=== PATIENT | male | born 1965 | race Caucasian/White ===

== ENCOUNTER 2021-09-26 09:52 | Emergency (ER) | payer OTHER, SELFPAY ==
[2021-09-26 09:59] VITALS: BP 138/80; PULSE 87; RESP 18; TEMP 36.6; O2SAT 97
--- NOTE | 2021-09-26 10:00 | DI.CT_ITS ---
Exam(s) CT HEAD WO EXAM: CT HEAD WO CLINICAL HISTORY: headache. TECHNIQUE: Imaging Protocol: Axial computed tomography images with coronal and sagittal reformatted images were created and reviewed COMPARISON: No exams were available for comparison FINDINGS: Ventricles and Extra axial spaces: Normal in size and morphology for the patient's age. No significan t atrophy. Hemorrhage: None. Cerebral parenchyma: Normal. No visible white matter changes. Midline shift: None. Brainstem/Cerebellum: Normal. Calvarium: Normal. Visualized Paranasal sinuses/Mastoids: Clear. Soft Tissues: Unremarkable. IMPRESSION: No acute intracranial process. Results of this exam have been verbally communicated with the emergency department provider. RADIATION DOSE DELIVERED: 898.85mGy.cm Total DLP DATA REPOSITORY: All CT scans at this facility are submitted to the National Radiology Data Registry (NRDR) Dose Index Registry (DIR) with the [employer] (ACR). RADIATION OPTIMIZATION: All CT scans at this facility use at least one of these dose optimization te chniques: automated exposure control; mA and/or kV adjustment per patient size (includes targeted exa ms where dose is matched to clinical indication); or iterative reconstruction.
--- NOTE | 2021-09-26 10:14 | W.ED.GENAD ---
Discharge Plan Disposition Patient Disposition: HOME Condition: Stable Discharge Details Clinical Impression: Headache, Myalgia Primary Care Provider: Rasheeda Mckenzie ED Provider: Amrit Amador Home Meds and New Rx's Prescriptions: New doxycycline hyclate 100 mg tablet 100 mg PO BID Qty: 28 0RF Continued buspirone 5 mg tablet 15 mg BID metformin 1,000 mg tablet 1,000 mg BID amlodipine-benazepril 5-10 mg Capsule 1 cap PO DAILY metoprolol tartrate 25 mg tablet 50 mg BID insulin glargine 100 unit/mL Cartridge 38 unit SUBCUT DAILY trazodone 50 mg tablet 75 mg PO HS omeprazole 20 mg Capsule,Delayed Release(Dr/Ec) 20 mg PO DAILY Discharge Instructions Additional Instructions: you are being treated for a tick born illness called ehrlichiosis or anaplasmosis follow up with your primary care provider within 1 week if you feel more ill, have severe worsening pain or difficulty breathing return to the emergency department Medical Decision Making 55 yo male with hx of dm, htn, who is in the area camping from [place], comes in with slowly worsening headache since Wednesday. He has also noted chills and body aches intermittently. Denies any fevers, neck stiffness, rashes, known tick bites, dyspnea, abdomen pain. He states he has had a migraine in the past but doesn't get them frequently. He arrives stable walking without assistance with normal gait. He does have positive photophobia. He is caox4, clear speech, eomi, PERRL. CN II-XII intact. He has no meningismus. No focal motor or sensation deficits. Given he has had a prior migraine will treat with compazine, benadryl and dexamethasone to see if it helps. His pain was not thunderclap in etiology so feel subarachnoid unlikely, will obtain ct head to evaluate for possible hemorrhage. 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 Will obtain fluvid swab, cbc, cmp, and send tick and lyme panel as well. pt feeling much better, ct head negative and on my read xray unremarkable. His labs show normal lactate and procalcitonin. He does have some findings that make me concerned for possible anaplasmosis including mild leukopenia, mild left shift, and alt that is just outside normal range. Discussed with him and will initiate treatment with doxycycline while tick panel is pending. He still has no meninismus and given no fever, leukocytosis and his well appearance doubt weighbridge operator infection and do not feel LP indicated at this time. [facility] and return precautions given Differential Diagnosis Differential Diagnosis: migraine, tension headache, covid, flu, tick illness Imaging Data Radiologic Study: Attestation: I personally reviewed and interpreted this imaging study as follows: Imaging: CT Scan Radiologist's impression: IMPRESSION: No acute intracranial process. Results of this exam have been verbally communicated with the emergency department provider. Radiologic Study #2: Attestation: I personally reviewed and interpreted this imaging study as follows: Imaging: X-Ray My impression: no acute findings Lab Data Lab results reviewed: Yes I reviewed the patient's lab results. HPI General Mode of arrival: ambulatory. Date/Time Provider Initiated Documentation: 09/26/21 09:53. Limitations to Documentation: no limitations. Information obtained by: patient. History of Present Illness 55 year old M presents to the emergency department with the chief complaint of headache, described as moderate, Quality is described as aching, and is localized to the head. Patient reports no radiation. Patient started experiencing this day(s) (2) and it has been constant. No relieving factors improve symptom(s), No exacerbating factors reported . Patient notes other (body aches, chills, no fever). Patient did receive the following treatments prior to arrival, none Related Data Home Medications Medication Instructions Recorded Confirmed amlodipine 5 mg-benazepril 10 mg 1 cap PO DAILY 09/26/21 09/26/21 capsule buspirone 5 mg tablet 15 mg BID 09/26/21 09/26/21 doxycycline hyclate 100 mg tablet 100 mg PO BID #28 tabs 09/26/21 insulin glargine 100 unit/mL 38 unit subcut DAILY 09/26/21 09/26/21 subcutaneous cartridge metformin 1,000 mg tablet 1,000 mg BID 09/26/21 09/26/21 metoprolol tartrate 25 mg tablet 50 mg BID 09/26/21 09/26/21 omeprazole 20 mg capsule,delayed 20 mg PO DAILY 09/26/21 09/26/21 release trazodone 50 mg tablet 75 mg PO HS 09/26/21 09/26/21 Previous Rx's Medication Instructions Recorded doxycycline hyclate 100 mg tablet 100 mg PO BID #28 tabs 09/26/21 General Stated Complaint: GenMedical MALIK: 3 Review of Systems All systems reviewed & are unremarkable except as noted in HPI and below Constitutional Constitutional: Denies fever(s) and Denies weakness Eyes Eyes: Denies loss of vision ENT Ears, Nose, Mouth, and Throat: Denies change in voice Cardiovascular Cardiovascular: Denies chest pain and Denies dyspnea Respiratory Respiratory: Denies cough and Denies dyspnea Gastrointestinal Gastrointestinal: Denies abdominal pain and Denies vomiting Genitourinary Genitourinary: Denies dysuria Musculoskeletal Musculoskeletal: Denies joint swelling Integumentary/Breasts Skin/Breast: Denies rash Neurologic Neurologic: Denies loss of vision and Denies weakness PFSH All Active Problems (Updated 09/26/21 @ 11:46 by Amrit Amador MD) Headache (Acute) Myalgia (Acute) Social History Smoking/Tobacco Use Status: Former Tobacco Use Tobacco: How many years used: 20 Smoking risk assessment performed?: Yes Drug use: Never Substance use type: does not use Do you feel safe at home: Yes Do you feel safe in your relationship?: Yes Exam Const General: no acute distress Orientation: alert HENMT Head: normal to inspection Ears: external ears normal General nose exam: external nose normal Mouth: moist mucous membranes Eyes General: appearance normal, both eyes and all related structures Neck Neck: normal visual inspection Resp Effort & Inspection: normal respiratory effort and able to speak in complete sentences Cardio Rate: regular rate Skin General skin exam: no rashes or lesions noted Neuro General: patient alert and patient oriented x3 Extrem General: normal to inspection Psych Mental Status: mental status grossly normal Course Vital Signs Vital signs: Vital Signs Temperature 36.6 C 09/26/21 09:59 Pulse 87 09/26/21 09:59 Respiratory Rate 18 09/26/21 09:59 Blood Pressure 138/80 09/26/21 09:59 Pulse Oximetry 97 09/26/21 09:59 Temperature 36.6 C 09/26/21 09:59 Temperature Source Temporal Artery Scan 09/26/21 09:59 Pulse 87 09/26/21 09:59 Respiratory Rate 18 09/26/21 09:59 Blood Pressure 138/80 09/26/21 09:59 Blood Pressure Position Sitting 09/26/21 09:59 Pulse Oximetry 97 09/26/21 09:59 Oxygen Delivery Method Room Air 09/26/21 09:59 Oxygen Flow Rate 0 09/26/21 09:59
[2021-09-26 10:30] VITALS: RESP 16
[2021-09-26 10:32] LABS: Lactate 1.4 mmol/L (0.6-1.4)
[2021-09-26 10:33] LABS: BE (Venous) -1 mmol/L (-2-3); HCO3 (Venous) 25 mmol/L (23-28); O2 Sat (Venous) 69 %; TCO2 (Venous) 22 mmol/L (24-29); pCO2 (Venous) 41 mmHg (41-51); pH (Venous) 7.38 (7.31-7.41); pO2 (Venous) 35 mmHg
[2021-09-26 10:34] LABS: Abs Immature Grans 0.02 10^3/uL (0.0-0.06); Absolute Basophil Count 0.02 10^3/uL (0.0-0.2); Absolute Lymphocyte Count 0.27 10^3/uL (1.2-3.4); Absolute Monocyte Count 0.26 10^3/uL (0.1-0.8); Absolute Neutrophil Count 2.79 10^3/uL (1.2-6.7); Basophils % 0.6; HCT 42.9 % (40.0-50.0); HGB 14.7 g/dL (13.5-17.5); Immature Grans % 0.6; MCH 29.1 pg (27.0-33.0); MCHC 34.3 % (32.0-36.0); MCV 85 fL (80-95); MPV 10.1 fL (8.0-11.0); Monocytes % 7.7; Neutrophils % 83.1; Platelet Count 158 10^3/uL (130-400); RBC 5.06 10^6/uL (4.36-5.78); RDW 13.2 % (11.8-14.1); RDW-SD 40.6 fL; WBC 3.36 10^3/uL (4.4-10.8)
[2021-09-26] MEDS: Normal Saline 1,000 ML 1000 ML IV (10:44)
[2021-09-26] MEDS: diphenhydrAMINE 50 MG/ML VIAL 25 MG IVP (10:45)
[2021-09-26] MEDS: Prochlorperazine 10 MG/2 ML VIAL IVP (10:48)
[2021-09-26] MEDS: Dexamethasone 10 MG/ML VIAL IVP (10:48)
[2021-09-26] MEDS: Normal Saline 50 ML 400 ML (10:53)
[2021-09-26 10:57] LABS: ALT 66 U/L (16-63); AST 36 U/L (15-37); Albumin 4.2 g/dL (3.4-5.0); Alkaline Phosphatase 66 U/L (46-116); Anion Gap 8.3 mmol/L (3-11); BUN 11 mg/dL (7-18); Bilirubin, Total 0.6 mg/dL (0.2-1.0); CO2 26.7 mmol/L (21.0-32.0); Calcium 8.9 mg/dL (8.5-10.1); Chloride 102 mmol/L (98-107); Glucose 188 mg/dL (74-106); Magnesium 1.7 mg/dL (1.8-2.4); Potassium 3.7 mmol/L (3.5-5.1); Sodium 137 mmol/L (136-145); TSH (W/Ref FT4) 0.62 uIU/mL (0.36-3.74); Total Protein 7.6 g/dL (6.4-8.2)
[2021-09-26 11:17] LABS: Procalcitonin 0.2 ng/mL
[2021-09-26 11:21] LABS: COVID-19 PCR Negative (Negative); Influenza A PCR Negative (Negative); Influenza B PCR Negative (Negative); RSV PCR Negative (Negative)
--- NOTE | 2021-09-26 11:28 | DI.RAD_ITS ---
Exam(s) XR PORTABLE CHEST AP EXAM: XR PORTABLE CHEST AP CLINICAL HISTORY: ?pneumonia TECHNIQUE: 2D digital imaging was performed. COMPARISON: No exams were available for comparison FINDINGS: LUNGS: Clear. No pleural abnormality seen. HEART: Normal. AORTA: Normal. BONES: Unremarkable for age. Soft tissues: Unremarkable. IMPRESSION: No acute findings. DATA REPOSITORY: RADIATION DOSE DELIVERED:
[2021-09-26 11:30] LABS: Source Nasopharynx
[2021-09-26 11:36] VITALS: BP 137/73; PULSE 91; RESP 16; TEMP 36.5; O2SAT 94
[2021-09-26] MEDS: Doxycycline Hyclate 100 MG CAP PO (12:12)
[2021-09-28 18:21] LABS: Anaplasma phagocytophilum Negative (Negative); B. miyamotoi PCR Negative (Negative); Babesia divergens/MO-1 Negative (Negative); Babesia duncani Negative (Negative); Babesia microti Negative (Negative); Ehrlichia chaffeensis Negative (Negative); Ehrlichia ewingii/canis Negative (Negative); Ehrlichia muris eauclairensis Negative (Negative)
[2021-09-29 11:47] LABS: Lyme Ab w Rflx to Lyme Confirm Negative (Negative)
== END 2021-09-26 11:57 | disposition home or self-care (01) ==
PROVIDERS: Emergency Provider Emergency Medicine; PCP Nurse Practitioner Adult Health
DX: R51.9 Headache, unspecified (principal); M79.10 Myalgia, unspecified site; R68.83 Chills (without fever); H53.149 Visual discomfort, unspecified; Z20.822 Contact with and (suspected) exposure to COVID-19
CPT/HCPCS: 80053; 82805; 84145; 87637; 87798; 96361; 96374; 96375; 99284; 70450; 71045; 83605; 83735; 84443; 85025; 86618; J0780; J1100; J1200

== ENCOUNTER 2022-06-12 08:46 | Outpatient (CLI) | payer OTHER, SELFPAY | END 2022-06-12 08:47 | disposition home or self-care (01) | LOC: PUVA 08:47 | PROVIDERS: PCP Nurse Practitioner Adult Health; Visit Provider Dermatology | DX: L40.9 Psoriasis, unspecified (principal) | CPT/HCPCS: 96900 ==

== ENCOUNTER 2022-06-15 13:04 | Outpatient (CLI) | payer OTHER, SELFPAY | END 2022-06-15 13:05 | disposition home or self-care (01) | LOC: PUVA 13:52 | PROVIDERS: PCP Nurse Practitioner Adult Health; Visit Provider Dermatology | DX: L40.9 Psoriasis, unspecified (principal) | CPT/HCPCS: 96900 ==

== ENCOUNTER 2022-06-16 13:24 | Outpatient (CLI) | payer OTHER, SELFPAY | END 2022-06-16 13:25 | disposition home or self-care (01) | LOC: PUVA 13:25 | PROVIDERS: PCP Nurse Practitioner Adult Health; Visit Provider Dermatology | DX: L40.9 Psoriasis, unspecified (principal) | CPT/HCPCS: 96900 ==

== ENCOUNTER 2022-06-19 07:25 | Outpatient (CLI) | payer OTHER, SELFPAY | END 2022-06-19 07:26 | disposition home or self-care (01) | LOC: PUVA 07:25 | PROVIDERS: PCP Nurse Practitioner Adult Health; Visit Provider Dermatology | DX: L40.9 Psoriasis, unspecified (principal) | CPT/HCPCS: 96900 ==

== ENCOUNTER 2022-06-22 12:21 | Outpatient (CLI) | payer OTHER, SELFPAY | END 2022-06-22 12:22 | disposition home or self-care (01) | LOC: PUVA 12:21 | PROVIDERS: PCP Nurse Practitioner Adult Health; Visit Provider Dermatology | DX: L40.9 Psoriasis, unspecified (principal) | CPT/HCPCS: 96900 ==

== ENCOUNTER 2022-06-23 07:40 | Outpatient (CLI) | payer OTHER, SELFPAY | END 2022-06-23 07:41 | disposition home or self-care (01) | LOC: PUVA 07:40 | PROVIDERS: PCP Nurse Practitioner Adult Health; Visit Provider Dermatology | DX: L40.9 Psoriasis, unspecified (principal) | CPT/HCPCS: 96900 ==

== ENCOUNTER 2022-06-26 10:51 | Outpatient (CLI) | payer OTHER, SELFPAY | END 2022-06-26 10:52 | disposition home or self-care (01) | LOC: PUVA 10:51 | PROVIDERS: PCP Nurse Practitioner Adult Health; Visit Provider Dermatology | DX: L40.9 Psoriasis, unspecified (principal) | CPT/HCPCS: 96900 ==

== ENCOUNTER 2022-06-29 11:40 | Outpatient (CLI) | payer OTHER, SELFPAY | END 2022-06-29 11:41 | disposition home or self-care (01) | LOC: PUVA 11:41 | PROVIDERS: PCP Nurse Practitioner Adult Health; Visit Provider Dermatology | DX: L40.9 Psoriasis, unspecified (principal) | CPT/HCPCS: 96900 ==

== ENCOUNTER 2022-06-30 07:41 | Outpatient (CLI) | payer OTHER, SELFPAY | END 2022-06-30 07:42 | disposition home or self-care (01) | LOC: PUVA 07:41 | PROVIDERS: PCP Nurse Practitioner Adult Health; Visit Provider Dermatology | DX: L40.9 Psoriasis, unspecified (principal) | CPT/HCPCS: 96900 ==

== ENCOUNTER 2022-07-03 07:08 | Outpatient (CLI) | payer OTHER, SELFPAY | END 2022-07-03 07:09 | disposition home or self-care (01) | LOC: PUVA 07:08 | PROVIDERS: PCP Nurse Practitioner Adult Health; Visit Provider Dermatology | DX: L40.9 Psoriasis, unspecified (principal) | CPT/HCPCS: 96900 ==

== ENCOUNTER 2022-07-06 07:26 | Outpatient (CLI) | payer OTHER, SELFPAY | END 2022-07-06 07:27 | disposition home or self-care (01) | LOC: PUVA 07:27 | PROVIDERS: PCP Nurse Practitioner Adult Health; Visit Provider Dermatology | DX: L40.9 Psoriasis, unspecified (principal) | CPT/HCPCS: 96900 ==

== ENCOUNTER 2022-07-07 07:45 | Outpatient (CLI) | payer OTHER, SELFPAY | END 2022-07-07 07:46 | disposition home or self-care (01) | LOC: PUVA 07:45 | PROVIDERS: PCP Nurse Practitioner Adult Health; Visit Provider Dermatology | DX: L40.9 Psoriasis, unspecified (principal) | CPT/HCPCS: 96900 ==

== ENCOUNTER 2022-07-10 07:16 | Outpatient (CLI) | payer OTHER, SELFPAY | END 2022-07-10 07:17 | disposition home or self-care (01) | LOC: PUVA 07:16 | PROVIDERS: PCP Nurse Practitioner Adult Health; Visit Provider Dermatology | DX: L40.9 Psoriasis, unspecified (principal) | CPT/HCPCS: 96900 ==

== ENCOUNTER 2022-07-13 07:11 | Outpatient (CLI) | payer OTHER, SELFPAY | END 2022-07-13 07:12 | disposition home or self-care (01) | LOC: PUVA 07:15 | PROVIDERS: PCP Nurse Practitioner Adult Health; Visit Provider Dermatology | DX: L40.9 Psoriasis, unspecified (principal) | CPT/HCPCS: 96900 ==

== ENCOUNTER 2022-07-14 07:08 | Outpatient (CLI) | payer OTHER, SELFPAY | END 2022-07-14 07:09 | disposition home or self-care (01) | LOC: PUVA 07:08 | PROVIDERS: PCP Nurse Practitioner Adult Health; Visit Provider Dermatology | DX: L40.9 Psoriasis, unspecified (principal) | CPT/HCPCS: 96900 ==

== ENCOUNTER 2022-07-17 13:16 | Outpatient (CLI) | payer OTHER, SELFPAY | END 2022-07-17 13:17 | disposition home or self-care (01) | LOC: PUVA 13:16 | PROVIDERS: PCP Nurse Practitioner Adult Health; Visit Provider Dermatology | DX: L40.9 Psoriasis, unspecified (principal) | CPT/HCPCS: 96900 ==

== ENCOUNTER 2022-07-20 07:17 | Outpatient (CLI) | payer OTHER, SELFPAY | END 2022-07-20 07:18 | disposition home or self-care (01) | LOC: PUVA 07:17 | PROVIDERS: PCP Nurse Practitioner Adult Health; Visit Provider Dermatology | DX: L40.9 Psoriasis, unspecified (principal) | CPT/HCPCS: 96900 ==

== ENCOUNTER 2022-08-04 07:33 | Outpatient (CLI) | payer OTHER, SELFPAY | END 2022-08-04 07:34 | disposition home or self-care (01) | LOC: PUVA 07:33 | PROVIDERS: PCP Nurse Practitioner Adult Health; Visit Provider Dermatology | DX: L40.9 Psoriasis, unspecified (principal) | CPT/HCPCS: 96900 ==

== ENCOUNTER 2022-08-07 07:52 | Outpatient (CLI) | payer OTHER, SELFPAY | END 2022-08-07 07:53 | disposition home or self-care (01) | LOC: PUVA 07:52 | PROVIDERS: PCP Nurse Practitioner Adult Health; Visit Provider Dermatology | DX: L40.9 Psoriasis, unspecified (principal) | CPT/HCPCS: 96900 ==

== ENCOUNTER 2022-08-10 07:24 | Outpatient (CLI) | payer OTHER, SELFPAY | END 2022-08-10 07:25 | disposition home or self-care (01) | LOC: PUVA 07:24 | PROVIDERS: PCP Nurse Practitioner Adult Health; Visit Provider Dermatology | DX: L40.9 Psoriasis, unspecified (principal) | CPT/HCPCS: 96900 ==

== ENCOUNTER 2022-08-11 07:08 | Outpatient (CLI) | payer OTHER, SELFPAY | END 2022-08-11 07:09 | disposition home or self-care (01) | LOC: PUVA 07:09 | PROVIDERS: PCP Nurse Practitioner Adult Health; Visit Provider Dermatology | DX: L40.9 Psoriasis, unspecified (principal) | CPT/HCPCS: 96900 ==

== ENCOUNTER 2022-08-14 07:44 | Outpatient (CLI) | payer OTHER, SELFPAY | END 2022-08-14 07:45 | disposition home or self-care (01) | LOC: PUVA 07:45 | PROVIDERS: PCP Nurse Practitioner Adult Health; Visit Provider Dermatology | DX: L40.9 Psoriasis, unspecified (principal) | CPT/HCPCS: 96900 ==

== ENCOUNTER 2022-08-17 07:41 | Outpatient (CLI) | payer OTHER, SELFPAY | END 2022-08-17 07:42 | disposition home or self-care (01) | LOC: PUVA 07:42 | PROVIDERS: PCP Nurse Practitioner Adult Health; Visit Provider Dermatology | DX: L40.9 Psoriasis, unspecified (principal) | CPT/HCPCS: 96900 ==

== ENCOUNTER 2022-08-18 07:12 | Outpatient (CLI) | payer OTHER, SELFPAY | END 2022-08-18 07:13 | disposition home or self-care (01) | LOC: PUVA 07:12 | PROVIDERS: PCP Nurse Practitioner Adult Health; Visit Provider Dermatology | DX: L40.9 Psoriasis, unspecified (principal) | CPT/HCPCS: 96900 ==

== ENCOUNTER 2022-08-24 07:44 | Outpatient (CLI) | payer OTHER, SELFPAY | END 2022-08-24 07:45 | disposition home or self-care (01) | LOC: PUVA 07:44 | PROVIDERS: PCP Nurse Practitioner Adult Health; Visit Provider Dermatology | DX: L40.9 Psoriasis, unspecified (principal) | CPT/HCPCS: 96900 ==

== ENCOUNTER 2022-08-25 07:02 | Outpatient (CLI) | payer OTHER, SELFPAY | END 2022-08-25 07:03 | disposition home or self-care (01) | LOC: PUVA 07:03 | PROVIDERS: PCP Nurse Practitioner Adult Health; Visit Provider Dermatology | DX: L40.9 Psoriasis, unspecified (principal) | CPT/HCPCS: 96900 ==

== ENCOUNTER 2022-08-28 07:04 | Outpatient (CLI) | payer OTHER, SELFPAY | END 2022-08-28 07:05 | disposition home or self-care (01) | LOC: PUVA 07:04 | PROVIDERS: PCP Nurse Practitioner Adult Health; Visit Provider Dermatology | DX: L40.9 Psoriasis, unspecified (principal) | CPT/HCPCS: 96900 ==

== ENCOUNTER 2022-08-31 11:05 | Outpatient (CLI) | payer OTHER, SELFPAY | END 2022-08-31 11:06 | disposition home or self-care (01) | LOC: PUVA 11:05 | PROVIDERS: PCP Nurse Practitioner Adult Health; Visit Provider Dermatology | DX: L40.9 Psoriasis, unspecified (principal) | CPT/HCPCS: 96900 ==

== ENCOUNTER 2022-09-01 09:12 | Outpatient (CLI) | payer OTHER, SELFPAY | END 2022-09-01 09:13 | disposition home or self-care (01) | LOC: PUVA 09:12 | PROVIDERS: PCP Nurse Practitioner Adult Health; Visit Provider Dermatology | DX: L40.9 Psoriasis, unspecified (principal) | CPT/HCPCS: 96900 ==

== ENCOUNTER 2022-09-04 09:18 | Outpatient (CLI) | payer OTHER, SELFPAY | END 2022-09-04 09:19 | disposition home or self-care (01) | LOC: PUVA 09:18 | PROVIDERS: PCP Nurse Practitioner Adult Health; Visit Provider Dermatology | DX: L40.9 Psoriasis, unspecified (principal) | CPT/HCPCS: 96900 ==

== ENCOUNTER 2022-09-14 10:48 | Outpatient (CLI) | payer OTHER, SELFPAY | END 2022-09-14 10:49 | disposition home or self-care (01) | LOC: PUVA 10:49 | PROVIDERS: PCP Nurse Practitioner Adult Health; Visit Provider Dermatology | DX: L40.9 Psoriasis, unspecified (principal) | CPT/HCPCS: 96900 ==

== ENCOUNTER 2022-09-15 07:12 | Outpatient (CLI) | payer OTHER, SELFPAY | END 2022-09-15 07:13 | disposition home or self-care (01) | LOC: PUVA 07:12 | PROVIDERS: PCP Nurse Practitioner Adult Health; Visit Provider Dermatology | DX: L40.9 Psoriasis, unspecified (principal) | CPT/HCPCS: 96900 ==

== ENCOUNTER 2022-09-18 07:50 | Outpatient (CLI) | payer OTHER, SELFPAY | END 2022-09-18 07:51 | disposition home or self-care (01) | LOC: PUVA 07:50 | PROVIDERS: PCP Nurse Practitioner Adult Health; Visit Provider Dermatology | DX: L40.9 Psoriasis, unspecified (principal) | CPT/HCPCS: 96900 ==

== ENCOUNTER 2022-09-21 07:33 | Outpatient (CLI) | payer OTHER, SELFPAY | END 2022-09-21 07:34 | disposition home or self-care (01) | LOC: PUVA 07:33 | PROVIDERS: PCP Nurse Practitioner Adult Health; Visit Provider Dermatology | DX: L40.9 Psoriasis, unspecified (principal) | CPT/HCPCS: 96900 ==

== ENCOUNTER 2022-09-22 07:09 | Outpatient (CLI) | payer OTHER, SELFPAY | END 2022-09-22 07:10 | disposition home or self-care (01) | LOC: PUVA 07:09 | PROVIDERS: PCP Nurse Practitioner Adult Health; Visit Provider Dermatology | DX: L40.9 Psoriasis, unspecified (principal) | CPT/HCPCS: 96900 ==

== ENCOUNTER 2022-10-05 20:21 | Emergency (ER) | payer OTHER, SELFPAY ==
[2022-10-05 20:51] VITALS: BP 153/96; PULSE 77; RESP 18; TEMP 36.8; O2SAT 97
[2022-10-05] MEDS: HYDROmorphone 2 MG/ML SYR 1 MG IVP (21:19)
[2022-10-05] MEDS: Normal Saline 1,000 ML 1000 ML IV (21:20)
[2022-10-05] MEDS: Ondansetron 4 MG/2 ML VIAL IVP (21:20)
--- NOTE | 2022-10-05 21:38 | DI.CT_ITS ---
Exam(s) CT RENAL COLIC WO EXAM: CT RENAL COLIC WO CLINICAL HISTORY: right flank pain. TECHNIQUE: Imaging Protocol: Axial computed tomography images with coronal and sagittal reformatted images were created and reviewed. CONTRAST MATERIAL: Noncontrast COMPARISON: No exams were available for comparison FINDINGS: ABDOMEN: Lung Bases: Normal where visualized. Liver: Enlarged. Hepatic steatosis. No measurable mass. Gallbladder and biliary tract: Few tiny stones noted. No ductal dilatation or wall thickening. Pancreas: Normal density, no calcifications or inflammatory process. Spleen: Normal. Kidneys: Normal size, contour and axis. 2 millimeter stone at the right ureteral vesicle junction cau sing mild right hydronephrosis. Additional tiny nonobstructing stones noted in the right kidney. b ilateral renal cysts. No further follow-up recommended. No masses seen. Adrenal glands: No masses seen. Abdominal Aorta: Abdominal portion non-dilated. Soft tissues: Unremarkable. PELVIS: Bladder: Nearly empty. Not well evaluated. No evidence of stones.No visible mass. Bowel: No obstruction or bowel wall thickening. Reproductive: Prostate mildly enlarged. Peritoneal cavity: No ascites, collection or mesenteric inflammatory response. Bones: Degenerative changes in the lower lumbar spine. IMPRESSION: Mild right hydronephrosis secondary to 2 millimeter stone at the right ureterovesical junction. Bill tional nonobstructing stones noted in the right kidney. RADIATION DOSE DELIVERED: 1,305.63mGy.cm Total DLP DATA REPOSITORY: All CT scans at this facility are submitted to the National Radiology Data Registry (NRDR) Dose Index Registry (DIR) with the [employer] (ACR). RADIATION OPTIMIZATION: All CT scans at this facility use at least one of these dose optimization te chniques: automated exposure control; mA and/or kV adjustment per patient size (includes targeted exa ms where dose is matched to clinical indication); or iterative reconstruction.
[2022-10-05 21:56] LABS: Abs Immature Grans 0.02 10^3/uL (0.0-0.06); Absolute Basophil Count 0.06 10^3/uL (0.0-0.2); Absolute Eosinophil Count 0.27 10^3/uL (0.0-0.7); Absolute Lymphocyte Count 1.92 10^3/uL (1.2-3.4); Absolute Monocyte Count 0.48 10^3/uL (0.1-0.8); Absolute Neutrophil Count 4.17 10^3/uL (1.2-6.7); Basophils % 0.9; Eosinophils % 3.9; HCT 43.7 % (40.0-50.0); HGB 14.9 g/dL (13.5-17.5); Immature Grans % 0.3; Lymphocytes % 27.7; MCHC 34.1 % (32.0-36.0); MCV 85 fL (80-95); MPV 10.5 fL (8.0-11.0); Monocytes % 6.9; Neutrophils % 60.3; Platelet Count 222 10^3/uL (130-400); RBC 5.13 10^6/uL (4.36-5.78); RDW 13.3 % (11.8-14.1); RDW-SD 41.3 fL; WBC 6.92 10^3/uL (4.4-10.8)
[2022-10-05 22:10] LABS: ALT 86 U/L (16-63); AST 34 U/L (15-37); Albumin 4.4 g/dL (3.4-5.0); Alkaline Phosphatase 64 U/L (46-116); Anion Gap 11.2 mmol/L (3-11); BUN 16 mg/dL (7-18); Bilirubin, Total 0.4 mg/dL (0.2-1.0); CO2 25.8 mmol/L (21.0-32.0); CREATININE 1.3 mg/dL (0.70-1.30); Calcium 9.5 mg/dL (8.5-10.1); Chloride 103 mmol/L (98-107); Estimated GFR 64.88 (mL/min/1.73m2); Glucose 197 mg/dL (74-106); Sodium 140 mmol/L (136-145); Total Protein 7.8 g/dL (6.4-8.2)
--- NOTE | 2022-10-05 22:24 | W.ED.GENAD ---
Discharge Plan Disposition Patient Disposition: Home Discharge Details Clinical Impression: Kidney stones Primary Care Provider: Unknown,Unknown ED Provider: Robb Phillips Home Meds and New Rx's Prescriptions: New tamsulosin [Flomax] 0.4 mg capsule 0.4 mg PO QHS Qty: 14 0RF Continued amlodipine-benazepril 10-20 mg Capsule 1 cap PO DAILY buspirone 5 mg tablet 15 mg BID metformin 1,000 mg tablet 1,000 mg BID metoprolol tartrate 25 mg tablet 50 mg BID insulin glargine 100 unit/mL Cartridge 38 unit SUBCUT DAILY trazodone 50 mg tablet 75 mg PO HS omeprazole 20 mg Capsule,Delayed Release(Dr/Ec) 20 mg PO DAILY doxycycline hyclate 100 mg tablet 100 mg PO BID Qty: 28 0RF Discharge Instructions Instructions: Kidney Stones (ED) Additional Instructions: Your CT scan did show a 2 mm stone just before your bladder. Please continue to stay well-hydrated and take the nightly medication tamsulosin/Flomax to help pass the stone. Please use the provided narcotic sparingly and only for severe pain.You may continue to take [id number] medications as needed. As discussed please call the [facility] urology department and inform them of your stone and arrange follow-up for follow-up in 2 weeks or sooner if their office request. Referrals: [facility] [Outside] Discharge Data Discharge Date/Time-TO BE ENTERED AT DEPARTURE: 10/05/22 23:15 Medical Decision Making Patient presenting to the emergency department for chief complaint of right flank pain. Patient reports approximately 1 hour ago he started having right flank pain that then radiated into his right testicle. Patient did state some difficulty with urination but denies any burning or discomfort. Patient has history of kidney stones and states similar presentation in the past. He also does have some associated nausea. Physical exam shows right flank and right lower quadrant abdominal tenderness, patient does appear to be in significant amount of pain and discomfort. We will plan on checking labs and renal colic CT for high suspicion of kidney stone. Review of labs show an unremarkable CBC, CMP shows slight elevation of anion gap at 11.2, glucose 197, ALT at 86 otherwise all labs within normal range. Still pending urinalysis. Reviewed CT imaging along with radiologist interpretation that shows a Right distal ureter stone measuring 2 mm. Exam does show cholelithiasis and some degenerative changes of lumbar spine. CT imaging is otherwise nondiagnostic. I do feel that stone does correlate with patient's symptoms. We will start patient on Flomax. We will give limited amount of narcotics and Zofran to help with symptoms. Patient states that he is typically seen at the [facility] and will contact the urology department for follow-up appointment. After discussion of diagnosis and plan of care patient has no further needs, questions, or concerns and states clear understanding to return to the emergency department for any worsening symptoms. This documentation was generated using [employer] system, please disregard any oddities of phrase or misspellings. Imaging Data Radiologic Study: Imaging: CT Scan Radiologist's impression: FINDINGS: Liver: Normal. No mass. Gallbladder and bile ducts: Several small calcified gallstones gallbladder. Pancreas: Normal. No ductal dilation. Spleen: Normal. No splenomegaly. Adrenal glands: Normal. No mass. Kidneys and ureters: On axial image 145, there is a 2 mm stone at the right ureterovesical junction producing mild right hydronephrosis. Small caliceal stones noted in both kidneys. Small bilateral renal cortical cysts. Stomach and bowel: Unremarkable. No obstruction. No mucosal thickening. Appendix: No evidence of appendicitis. Intraperitoneal space: Unremarkable. No free air. No significant fluid collection. Vasculature: Unremarkable. No abdominal aortic aneurysm. Lymph nodes: Unremarkable. No enlarged lymph nodes. Urinary bladder: Unremarkable as visualized. Reproductive: Unremarkable as visualized. Bones/joints: Significant multilevel facet arthropathy in the lumbar spine with grade 1 anterolisthesis of L4. Oblv-wj-[id number] multilevel degenerative disc changes. No vertebral body compression or acute fracture. Soft tissues: Unremarkable. IMPRESSION: 1. 2 mm right UVJ stone with mild right hydronephrosis. Minimal bilateral nephrolithiasis also noted. 2. Significant degenerative changes of the lumbar spine. 3. Cholelithiasis Lab Data Lab results reviewed: Yes I reviewed the patient's lab results. HPI General Mode of arrival: ambulatory. Date/Time Provider Initiated Documentation: 10/05/22 20:38. Limitations to Documentation: no limitations. Information obtained by: patient and RN notes reviewed. History of Present Illness 57 year old M presents to the emergency department with the chief complaint of Right flank pain, difficulty urinating, described as severe and similar to prior episodes, Quality is described as aching and sharp, and is localized to the right (Right flank). Patient reports radiation to (Right testicle). Patient started experiencing this hour(s) (1) and it has been constant. No relieving factors improve symptom(s), No exacerbating factors reported . Patient notes no other symptoms.. Patient did receive the following treatments prior to arrival, none Related Data Home Medications Medication Instructions Recorded Confirmed buspirone 5 mg tablet 15 mg BID 09/26/21 10/05/22 doxycycline hyclate 100 mg tablet 100 mg PO BID #28 tabs 09/26/21 10/05/22 insulin glargine 100 unit/mL 38 unit subcut DAILY 09/26/21 10/05/22 subcutaneous cartridge metformin 1,000 mg tablet 1,000 mg BID 09/26/21 10/05/22 metoprolol tartrate 25 mg tablet 50 mg BID 09/26/21 10/05/22 omeprazole 20 mg capsule,delayed 20 mg PO DAILY 09/26/21 10/05/22 release trazodone 50 mg tablet 75 mg PO HS 09/26/21 10/05/22 amlodipine 10 mg-benazepril 20 mg 1 cap PO DAILY 06/12/22 10/05/22 capsule tamsulosin 0.4 mg capsule (Flomax) 0.4 mg PO QHS #14 caps 10/05/22 Previous Rx's Medication Instructions Recorded doxycycline hyclate 100 mg tablet 100 mg PO BID #28 tabs 09/26/21 tamsulosin 0.4 mg capsule (Flomax) 0.4 mg PO QHS #14 caps 10/05/22 Allergies Allergy/AdvReac Type Severity Reaction Status Date / Time diclofenac Allergy Swelling/Ed Unverified 10/05/22 20:53 rena gabapentin Allergy Swelling/Ed Unverified 10/05/22 20:53 rena General Stated Complaint: FlankPain MALIK: 3 Review of Systems Constitutional Constitutional: Denies chills and Denies fever(s) Cardiovascular Cardiovascular: Denies chest pain and Denies dyspnea Respiratory Respiratory: Denies dyspnea Gastrointestinal Gastrointestinal: Denies abdominal pain, Reports nausea and Denies vomiting Genitourinary Genitourinary: Reports as per HPI, Reports difficulty urinating, Denies dysuria, Reports flank pain, Denies scrotal swelling, Denies testicular mass and Reports testicular pain Musculoskeletal Musculoskeletal: Denies back pain PFSH All Active Problems (Updated 10/05/22 @ 22:36 by Robb Phillips NP) Kidney stones (Chronic) Medical History Diabetes mellitus Psoriasis Surgical History Hx of fasciotomy right arm Social History Smoking/Tobacco Use Status: Former Tobacco Use Tobacco: How many years used: 20 Smoking risk assessment performed?: Yes Drug use: Never Substance use type: does not use Do you feel safe at home: Yes Do you feel safe in your relationship?: Yes Exam Const General: cooperative Orientation: alert, awake and oriented x3 Resp Effort & Inspection: normal respiratory effort and able to speak in complete sentences Auscultation: clear to auscultation bilaterally Cardio Rate: regular rate Rhythm: regular rhythm Heart Sounds: S1 normal and S2 normal GI Inspection: obesity Palpation: soft, not firm, no guarding, no masses, no pulsatile masses, not rigid, no splenomegaly and tender in the RLQ Auscultation: normal bowel sounds General: CVA tenderness on the right Back/Spine/Pelvis Back: CVA tenderness Neuro General: patient alert, patient awake, patient oriented x3, gait normal and moves all extremities Course Vital Signs Vital signs: Vital Signs Temperature 36.8 C 10/05/22 20:51 Pulse 77 10/05/22 20:51 Respiratory Rate 18 10/05/22 20:51 Blood Pressure 153/96 H 10/05/22 20:51 Pulse Oximetry 97 10/05/22 20:51 Temperature 36.8 C 10/05/22 20:51 Temperature Source Skin 10/05/22 20:51 Pulse 77 10/05/22 20:51 Respiratory Rate 18 10/05/22 20:51 Respiratory Effort Normal 10/05/22 21:35 Blood Pressure 153/96 H 10/05/22 20:51 Blood Pressure Position Sitting 10/05/22 20:51 Pulse Oximetry 97 10/05/22 20:51 Oxygen Delivery Method Room Air 10/05/22 20:51 Oxygen Flow Rate 0 10/05/22 20:51 Pain Level 10 10/05/22 20:51 Lab/Test Results Lab/Test Results: Laboratory Tests Range/Units 10/05/22 10/05/22 21:15 21:15 WBC (4.4-10.8) 10^3/uL 6.92 RBC (4.36-5.78) 10^6/uL 5.13 Hgb (13.5-17.5) g/dL 14.9 Hct (40.0-50.0) % 43.7 MCV (80-95) fL 85 MCH (27.0-33.0) pg 29.0 MCHC (32.0-36.0) % 34.1 RDW (11.8-14.1) % 13.3 Plt Count (130-400) 10^3/uL 222 MPV (8.0-11.0) fL 10.5 Immature Gran % 0.3 Neutrophils % 60.3 Lymphocytes % 27.7 Monocytes % 6.9 Eosinophils % 3.9 Basophils % 0.9 Nucleated RBC % (0.0-0.3) % 0.0 Absolute Neutrophils (1.2-6.7) 10^3/uL 4.17 Absolute Lymphocytes (1.2-3.4) 10^3/uL 1.92 Absolute Monocytes (0.1-0.8) 10^3/uL 0.48 Absolute Eosinophils (0.0-0.7) 10^3/uL 0.27 Absolute Basophils (0.0-0.2) 10^3/uL 0.06 Sodium (136-145) mmol/L 140 Potassium (3.5-5.1) mmol/L 4.0 Chloride (98-107) mmol/L 103 Carbon Dioxide (21.0-32.0) mmol/L 25.8 Anion Gap (3-11) mmol/L 11.2 H BUN (7-18) mg/dL 16 Creatinine (0.70-1.30) mg/dL 1.3 Est GFR (CKD-EPI 2020) (mL/min/1.73m2) 64.88 Glucose (74-106) mg/dL 197 H Calcium (8.5-10.1) mg/dL 9.5 Total Bilirubin (0.2-1.0) mg/dL 0.4 AST (15-37) U/L 34 ALT (16-63) U/L 86 H Alkaline Phosphatase (46-116) U/L 64 Total Protein (6.4-8.2) g/dL 7.8 Albumin (3.4-5.0) g/dL 4.4
--- NOTE | 2022-10-05 22:26 | DI.VRAD_ITS ---
PROCEDURE INFORMATION: Exam: CT Abdomen And Pelvis Without Contrast Exam date and time: 10/05/2022 9:42 PM Age: 57 years old Clinical indication: Patient HX: R flank pain TECHNIQUE: Imaging protocol: Computed tomography of the abdomen and pelvis without contrast. Radiation optimization: All CT scans at this facility use at least one of these dose optimization techniques: automated exposure control; mA and/or kV adjustment per patient size (includes targeted exams where dose is matched to clinical indication); or iterative reconstruction. COMPARISON: CR XR PORTABLE CHEST AP 09/26/2021 11:12 AM FINDINGS: Liver: Normal. No mass. Gallbladder and bile ducts: Several small calcified gallstones gallbladder. Pancreas: Normal. No ductal dilation. Spleen: Normal. No splenomegaly. Adrenal glands: Normal. No mass. Kidneys and ureters: On axial image 145, there is a 2 mm stone at the right ureterovesical junction producing mild right hydronephrosis. Small caliceal stones noted in both kidneys. Small bilateral renal cortical cysts. Stomach and bowel: Unremarkable. No obstruction. No mucosal thickening. Appendix: No evidence of appendicitis. Intraperitoneal space: Unremarkable. No free air. No significant fluid collection. Vasculature: Unremarkable. No abdominal aortic aneurysm. Lymph nodes: Unremarkable. No enlarged lymph nodes. Urinary bladder: Unremarkable as visualized. Reproductive: Unremarkable as visualized. Bones/joints: Significant multilevel facet arthropathy in the lumbar spine with grade 1 anterolisthesis of L4. [id number] multilevel degenerative disc changes. No vertebral body compression or acute fracture. Soft tissues: Unremarkable. IMPRESSION: 1. 2 mm right UVJ stone with mild right hydronephrosis. Minimal bilateral nephrolithiasis also noted. 2. Significant degenerative changes of the lumbar spine. 3. Cholelithiasis Dictated and Authenticated by: Paolo Calix MD. Ordering:SANAZ Zamudio MD
[2022-10-05] MEDS: Ondansetron O.D.T. 4 MG TABEF, 3 TABS/BTL PO (22:44)
[2022-10-05] MEDS: Tamsulosin 0.4 MG CAPCR PO (22:44)
[2022-10-05 22:51] VITALS: BP 137/68; PULSE 78; RESP 16; O2SAT 99
== END 2022-10-05 23:15 | disposition home or self-care (01) ==
PROVIDERS: Emergency Provider Nurse Practitioner Family
DX: N13.2 Hydronephrosis with renal and ureteral calculous obstruction (principal); K80.20 Calculus of gallbladder without cholecystitis without obstruction; Z87.891 Personal history of nicotine dependence
CPT/HCPCS: 36415; 80053; 96361; 96374; 96375; 99284; 74176; 81003; 85025; J1170; J2405

== ENCOUNTER 2022-10-23 07:13 | Outpatient (CLI) | payer OTHER, SELFPAY | END 2022-10-23 07:14 | disposition home or self-care (01) | LOC: PUVA 07:13 | PROVIDERS: PCP Nurse Practitioner Adult Health; Visit Provider Dermatology | DX: L40.9 Psoriasis, unspecified (principal) | CPT/HCPCS: 96900 ==

== ENCOUNTER 2022-10-26 07:21 | Outpatient (CLI) | payer OTHER, SELFPAY | END 2022-10-26 07:22 | disposition home or self-care (01) | LOC: PUVA 07:21 | PROVIDERS: PCP Nurse Practitioner Adult Health; Visit Provider Dermatology | DX: L40.9 Psoriasis, unspecified (principal) | CPT/HCPCS: 96900 ==

== ENCOUNTER 2022-10-27 07:41 | Outpatient (CLI) | payer OTHER, SELFPAY | END 2022-10-27 07:42 | disposition home or self-care (01) | LOC: PUVA 07:42 | PROVIDERS: PCP Nurse Practitioner Adult Health; Visit Provider Dermatology | DX: L40.9 Psoriasis, unspecified (principal) | CPT/HCPCS: 96900 ==

== ENCOUNTER 2022-10-30 07:19 | Outpatient (CLI) | payer OTHER, SELFPAY | END 2022-10-30 07:20 | disposition home or self-care (01) | LOC: PUVA 07:19 | PROVIDERS: PCP Nurse Practitioner Adult Health; Visit Provider Dermatology | DX: L40.9 Psoriasis, unspecified (principal) | CPT/HCPCS: 96900 ==

== ENCOUNTER 2022-11-02 07:08 | Outpatient (CLI) | payer OTHER, SELFPAY | END 2022-11-02 07:09 | disposition home or self-care (01) | LOC: PUVA 07:08 | PROVIDERS: PCP Nurse Practitioner Adult Health; Visit Provider Dermatology | DX: L40.9 Psoriasis, unspecified (principal) | CPT/HCPCS: 96900 ==

== ENCOUNTER 2022-11-10 07:17 | Outpatient (CLI) | payer OTHER, SELFPAY | END 2022-11-10 07:18 | disposition home or self-care (01) | LOC: PUVA 07:18 | PROVIDERS: PCP Nurse Practitioner Adult Health; Visit Provider Dermatology | DX: L40.9 Psoriasis, unspecified (principal) | CPT/HCPCS: 96900 ==

== ENCOUNTER 2022-11-13 07:09 | Outpatient (CLI) | payer OTHER, SELFPAY | END 2022-11-13 07:10 | disposition home or self-care (01) | LOC: PUVA 07:09 | PROVIDERS: Visit Provider Dermatology | DX: L40.9 Psoriasis, unspecified (principal) | CPT/HCPCS: 96900 ==

== ENCOUNTER 2022-11-16 07:05 | Outpatient (CLI) | payer OTHER, SELFPAY | END 2022-11-16 07:06 | disposition home or self-care (01) | PROVIDERS: PCP Nurse Practitioner Adult Health; Visit Provider Dermatology | DX: L40.9 Psoriasis, unspecified (principal) | CPT/HCPCS: 96900 ==

== ENCOUNTER 2022-11-17 07:04 | Outpatient (CLI) | payer OTHER, SELFPAY | END 2022-11-17 07:05 | disposition home or self-care (01) | LOC: PUVA 07:04 | PROVIDERS: PCP Nurse Practitioner Adult Health; Visit Provider Dermatology | DX: L40.9 Psoriasis, unspecified (principal) | CPT/HCPCS: 96900 ==

== ENCOUNTER 2022-11-20 07:10 | Outpatient (CLI) | payer OTHER, SELFPAY | END 2022-11-20 07:11 | disposition home or self-care (01) | LOC: PUVA 07:10 | PROVIDERS: PCP Nurse Practitioner Adult Health; Visit Provider Dermatology | DX: L40.9 Psoriasis, unspecified (principal) | CPT/HCPCS: 96900 ==

== ENCOUNTER 2022-11-23 07:10 | Outpatient (CLI) | payer OTHER, SELFPAY | END 2022-11-23 07:11 | disposition home or self-care (01) | LOC: PUVA 07:11 | PROVIDERS: PCP Nurse Practitioner Adult Health; Visit Provider Dermatology | DX: L40.9 Psoriasis, unspecified (principal) | CPT/HCPCS: 96900 ==

== ENCOUNTER 2022-11-24 07:05 | Outpatient (CLI) | payer OTHER, SELFPAY | END 2022-11-24 07:06 | disposition home or self-care (01) | LOC: PUVA 07:05 | PROVIDERS: PCP Nurse Practitioner Adult Health; Visit Provider Dermatology | DX: L40.9 Psoriasis, unspecified (principal) | CPT/HCPCS: 96900 ==

== ENCOUNTER 2022-11-27 13:24 | Outpatient (CLI) | payer OTHER, SELFPAY | END 2022-11-27 13:25 | disposition home or self-care (01) | LOC: PUVA 13:25 | PROVIDERS: PCP Nurse Practitioner Adult Health; Visit Provider Dermatology | DX: L40.9 Psoriasis, unspecified (principal) | CPT/HCPCS: 96900 ==

== ENCOUNTER 2022-11-30 13:30 | Outpatient (CLI) | payer OTHER, SELFPAY | END 2022-11-30 13:31 | disposition home or self-care (01) | LOC: PUVA 13:30 | PROVIDERS: PCP Nurse Practitioner Adult Health; Visit Provider Dermatology | DX: L40.9 Psoriasis, unspecified (principal) | CPT/HCPCS: 96900 ==

== ENCOUNTER 2022-12-01 13:22 | Outpatient (CLI) | payer OTHER, SELFPAY | END 2022-12-01 13:23 | disposition home or self-care (01) | LOC: PUVA 13:22 | PROVIDERS: PCP Nurse Practitioner Adult Health; Visit Provider Dermatology | DX: L40.9 Psoriasis, unspecified (principal) | CPT/HCPCS: 96900 ==

== ENCOUNTER 2022-12-03 06:59 | Day surgery (SDC) | payer OTHER, SELFPAY ==
[2022-12-03 07:32] VITALS: BP 142/96; PULSE 100; RESP 16; TEMP 36.7; O2SAT 94
--- NOTE | 2022-12-03 07:58 | W.ANESPRE ---
General Info Date of Service Date Performed: 12/03/22 Height: 6 ft Weight: 119.3 kg Body Mass Index (BMI): 35.6 Surgical Procedure: Operation Date: 12/03/22 08:20 Proposed Procedure Side Surgeon p Gastroscopy Devin Wright MD Meds Allergies and Home Medications Allergies Allergy/AdvReac Type Severity Reaction Status Date / Time adalimumab [From Humira] Allergy Unknown Verified 12/03/22 07:28 diclofenac Allergy Swelling/Ed Unverified 12/03/22 07:28 rena gabapentin Allergy Swelling/Ed Unverified 12/03/22 07:28 rena Home Medication Medication Instructions Recorded buspirone 5 mg tablet 15 mg BID 09/26/21 doxycycline hyclate 100 mg tablet 100 mg PO BID #28 tabs 09/26/21 insulin glargine 100 unit/mL 38 unit subcut DAILY 09/26/21 subcutaneous cartridge metformin 1,000 mg tablet 1,000 mg BID 09/26/21 metoprolol tartrate 25 mg tablet 50 mg BID 09/26/21 omeprazole 20 mg capsule,delayed 20 mg PO DAILY 09/26/21 release trazodone 50 mg tablet 75 mg PO HS 09/26/21 amlodipine 10 mg-benazepril 20 mg 1 cap PO DAILY 06/12/22 capsule bupropion HCl 300 mg 24 hr tablet, 300 mg PO DAILY 10/23/22 extended release nortriptyline 50 mg capsule 150 mg PO QHS 11/11/22 sildenafil 100 mg tablet 100 mg PO DAILY PRN 11/11/22 sodium chloride 0.65 % nasal spray 2 spray intranasal QID PRN 11/11/22 aerosol bisacodyl 5 mg tablet,delayed 5 mg PO ONCE #4 tabs 11/13/22 release (Dulcolax (bisacodyl)) polyethylene glycol 3350 17 17 g PO ONCE #238 grams 11/13/22 gram/dose oral powder Current Visit Medications: Current Medications Generic Name Dose Route Start Last Admin Trade Name Freq PRN Reason Stop Dose Admin Ringer's Solution 1,000 mls @ 80 mls/hr 12/03/22 06:00 IV 12/03/22 23:59 INFUSION [facility] IV Miscellaneous Supplies 1 each 12/03/22 06:00 Iv Access IV 12/03/22 23:59 DIRECTED [facility] Sodium Chloride 0 ml 12/03/22 06:00 Normal Saline Flush 10 Ml Syr IV 12/03/22 23:59 PRN PRN Sodium Chloride 0 ml 12/03/22 06:00 Normal Saline 10 Ml Vial IJ 12/03/22 23:59 DIRECTED PRN Sterile Water 0 ml 12/03/22 06:00 Water,Injection,Sterile 10 Ml Vial IJ 12/03/22 23:59 DIRECTED PRN PFSH Active Problems Active Problems: Problem Status Onset Code Cirrhosis K74.60 Cervical disc disorder with radiculopathy M50.10 Spondylosis M47.9 Spinal stenosis of thoracic region M48.04 Steatohepatitis, non-alcoholic K75.81 Family history of GI malignancy Z80.0 Medical History Medical History Diabetes mellitus Hearing loss Hypertension Kidney stones Lateral epicondylitis Lumbar radiculopathy Obesity [place] (obstructive sleep apnea) Pain in right arm Panic disorder without agoraphobia Psoriasis Rotator cuff rupture Tinnitus Tobacco use disorder Surgical History Surgical History (Updated 12/03/22 @ 07:57 by Portia Barriga) H/O arthroscopic knee surgery Right H/O arthroscopy of shoulder Bilateral H/O colonoscopy H/O endoscopy Hx of fasciotomy right arm Tobacco Smoking/Tobacco Use Status: Former Tobacco Use Alcohol Alcohol Intake: current Alcohol intake frequency: holidays/special occasions only Alcohol type: beer Substance Use Substance use: Never Substance use type: does not use Vital Signs and Lab Results Vital Signs Most Recent Vital Signs in EMR: Most Recent Vital Signs Temp Pulse Resp BP Pulse Ox 36.7 C 100 H 16 142/96 H 94 12/03/22 07:32 12/03/22 07:32 12/03/22 07:32 12/03/22 07:32 12/03/22 07:32 Lab Results Blood Type / Crossmatch: No Data to Display Complete Blood Count: No Data to Display Complete Metabolic Panel: No Data to Display Liver Function Panel: No Data to Display Coagulation Panel: No Data to Display Cardiac Panel: No Data to Display Arterial Blood Gas: No Data to Display Venous Blood Gas: No Data to Display Pancreas Panel: No Data to Display Thyroid Panel: No Data to Display Infectious Disease: No Data to Display Blood Cultures: No Data to Display Toxicology Panel: No Data to Display Anesthesia Assessment and Plan Anesthesia History Personal History: Delayed Emergence Family History: No Family History of Anesthesia Complications Exercise Tolerance Exercise Tolerance: Metabolic Equivalents>4 Pertinent Negatives Pertinent Negatives: No Symptoms of GERD, No Major Cardiovascular Symptoms or Complaints, No Major Pulmonary Symptoms or Complaints and No History of CVA/TIA Cardiac & Pulmonary Exam Cardiac Exam: Normal S1/S2 Heart Sounds Pulmonary Exam: Clear Bilateral Breath Sounds Implantable Cardiac Device Does patient have a Pacemaker or an ICD?: No Airway Exam Known Difficult Airway: No Mallampati Class: 2 Mouth Opening: Normal (> 3cm) Thyromental Distance: Greater than 3 cm Neck Range of Motion: Full ROM Neck Circumference: Normal Teeth Condition: Normal Dentition (right front tooth chipped) ASA Classification ASA Score: ASA 3 Emergency Case?: No NPO Status NPO Status: NPO Clears >2 hours, Solids >8 hours Anesthesia Plan Resuscitation Status: Full Code Anesthesia Technique: General Anesthesia Airway Planned: Natural Airway Monitors Used: Standard Monitors Preoperative Comments:: NIKHIL 190
[2022-12-03] MEDS: Lactated Ringers 1,000 ML 80 ML IV (08:00)
[2022-12-03 08:17] VITALS: BMI 35.6
--- NOTE | 2022-12-03 08:23 | STOM_PTH ---
PATIENT: Efra Holt SR LOC: [facility] U#:[id number] AGE/SX: 57/M ROOM: RE12/03/[address]: Devin Wright : 1965 BED: DIS: 12/03/2022 SPEC #: [id number] RECD: 12/03/22 13:07 STATUS: [facility] #: [id number] THEO: 12/03/22 08:[address]: Devin Wright DEPT: Surgical Specimen RECD BY: Sonia Quinteros ENTERED: 12/03/22 13:07 SP TYPE: STOMACH OTHR DR: Rasheeda Mckenzie Tissues: 1 - STOMACH BIOPSY 2 - STOMACH BIOPSY 3 - ESOPHAGUS BIOPSY Procedures: GROSS AND MICRO LEVEL 4 Comments: [id number]
[2022-12-03 08:35] VITALS: BP 135/95; PULSE 102; RESP 18; TEMP 36.2; O2SAT 94
--- NOTE | 2022-12-03 08:40 | W.PM.ENDDOP ---
Date of service: 12/03/22 Time of Service: 08:40 Endoscopy Report PROCEDURE DESCRIPTION: Procedures performed: 1.? Esophagogastroduodenoscopy with cold forceps biopsies 2. Cold forceps polypectomy Preoperative diagnosis: Cirrhosis Postoperative diagnosis: Tiny (sub-cm) type I sliding hiatal hernia(Hill II), mild chronic Gastritis or Gastropathy, gastric polyps Surgeon: Brad Wright Anesthesia: Janice Indication for procedure: 57 yo man with cirrhosis, no foregut symptoms, EGD requested to rule out varices Findings: - D3, D2 and D1 - normal - no inflammation or ulcers - Pylorus - patent.? No bile reflux visualized during procedure. - Antrum - looks mildly inflamed and with chronic appeance - biopsies taken to rule out occult H. pylori - Stomach Body - chronic gastritis/gastropathy appearance.? - Fundus -? Normal.? Some benign?appearing gastric polyps were seen and 1 was removed with cold forceps technique to confirm benign histology. - Hiatus - Retroflexion showed a small type I sliding hiatal hernia (~ 1 cm slide) - Esophagus - distal esophagus does not look inflamed at al despite small hernia.? No stricture or evidence of Carrillo's.? There is some strange?appearing bumps in the esophagus that have a benign appearance but I do not know their significance so 1 was biopsied. The mid and proximal esophagus was normal. There were no visible varices anywhere. - Cords/hypopharynx - Normal OVERALL - mild gastritis, no varices Surveillance/follow-up recommendations: Pending biopsy results.?? Unlikely to be necessary.?? Complications: None Blood loss: Minimal Specimens:? YES Procedure in detail: Written consent was obtained from the patient who was in agreement with the risks, benefits and indications of the procedure.? We went to the endoscopy suite and laid the patient in left lateral decubitus position.? Anesthesia was administered which was tolerated well.? A timeout was performed and when we are all in agreement we began the procedure. A well?lubricated endoscope was advanced without difficulty down the esophagus, into the stomach, through a patent pylorus and into the duodenum.? It was then slowly pulled back with findings noted above. The scope was then removed and the patient tolerated the procedure well.
--- NOTE | 2022-12-03 08:45 | W.PM.DSUDISC ---
Date of service: 12/03/22 Time of Service: 08:45 Discharge Plan Disposition Patient Disposition: Home Condition: Good Discharge Details Attending Provider: Devin Wright Primary Care Provider: Rasheeda Mckenzie Home Meds and New Rx's Prescriptions: No Action bisacodyl [Dulcolax (bisacodyl)] 5 mg tablet,delayed release (DR/EC) 5 mg PO ONCE Qty: 4 0RF Rx Instructions: Take per colonoscopy instructions provided by ordering providers office polyethylene glycol 3350 17 gram/dose powder 17 g PO ONCE Qty: 238 0RF Rx Instructions: Take per colonoscopy instructions provided by ordering providers office sildenafil 100 mg tablet 100 mg PO DAILY PRN Rx Instructions: administer 30 minutes to 4 hours before activity sodium chloride 0.65 % aerosol,spray 2 spray intranasal QID PRN nortriptyline 50 mg capsule 150 mg PO QHS amlodipine-benazepril 10-20 mg Capsule 1 cap PO DAILY buspirone 5 mg tablet 15 mg BID metformin 1,000 mg tablet 1,000 mg BID metoprolol tartrate 25 mg tablet 50 mg BID insulin glargine 100 unit/mL Cartridge 38 unit SUBCUT DAILY trazodone 50 mg tablet 75 mg PO HS omeprazole 20 mg Capsule,Delayed Release(Dr/Ec) 20 mg PO DAILY doxycycline hyclate 100 mg tablet 100 mg PO BID Qty: 28 0RF bupropion HCl 300 mg tablet extended release 24 hr 300 mg PO DAILY Discharge Instructions Activity:: Activity as Tolerated Diet:: As Tolerated Discharge Orders Discharge Orders: Discharge Order (Routine); Ordered 12/03/22 Ordered By: Devin Wright DS: Diagnosis Discharge Diagnosis (1) Cirrhosis: Status: Acute Asessment and Plan: FINDINGS: No esophageal varices were seen. Mild inflammation in your stomach is very common and was seen today. Usually dietary modification is enough to treat this. You can discuss further with your PCP.
--- NOTE | 2022-12-03 08:55 | W.ANESPOSTOP ---
Postoperative Evaluation Date, Time and Location Date Performed: 12/03/22 Time Performed: 08:38 Patient Location: Day Surgery Unit Vital Signs Most Recent Imported Vital Signs: Most Recent Vital Signs Temp Pulse Resp BP Pulse Ox 36.2 C L 102 H 18 135/95 H 94 12/03/22 08:35 12/03/22 08:35 12/03/22 08:35 12/03/22 08:35 12/03/22 08:35 Pain Score Most Recent Pain Score: Most Recent Pain Score Pain Level 0 12/03/22 08:35 Assessment Mental Status: Awake (Alert & Oriented to Patient Baseline) Airway and Respiratory Function: Patent airway with normal (patient baseline) respiratory exam Cardiovascular Function: Hemodynamically Stable Hydration Status: Adequately Hydrated Nausea & Vomiting: No Nausea or Vomiting Pain: Pt. Denies Any Pain Peripheral Nerve Block: Patient did not receive a nerve block
[2022-12-03 09:06] VITALS: BP 142/88; PULSE 86; RESP 16; TEMP 36.4; O2SAT 97
== END 2022-12-03 09:23 | disposition home or self-care (01) ==
PROVIDERS: PCP Nurse Practitioner Adult Health; Visit Provider Student in an Organized Health Care Education/Training Program
PROC: 0DJ68ZZ Inspection of Stomach, Via Natural or Artificial Opening Endoscopic (ICD-10-PCS; CPT 43235; principal; 2022-12-03 08:15)
DX: K74.60 Unspecified cirrhosis of liver (principal); K29.50 Unspecified chronic gastritis without bleeding; K44.9 Diaphragmatic hernia without obstruction or gangrene; K31.7 Polyp of stomach and duodenum
CPT/HCPCS: 43239; 88305; J2704

== ENCOUNTER 2022-12-04 07:25 | Outpatient (CLI) | payer OTHER, SELFPAY | END 2022-12-04 07:26 | disposition home or self-care (01) | LOC: PUVA 07:26 | PROVIDERS: PCP Nurse Practitioner Adult Health; Visit Provider Dermatology | DX: L40.9 Psoriasis, unspecified (principal) | CPT/HCPCS: 96900 ==

== ENCOUNTER 2022-12-07 07:23 | Outpatient (CLI) | payer OTHER, SELFPAY | END 2022-12-07 07:24 | disposition home or self-care (01) | LOC: PUVA 07:23 | PROVIDERS: PCP Nurse Practitioner Adult Health; Visit Provider Dermatology | DX: L40.9 Psoriasis, unspecified (principal) | CPT/HCPCS: 96900 ==

== ENCOUNTER 2022-12-08 08:12 | Outpatient (CLI) | payer OTHER, SELFPAY | END 2022-12-08 08:13 | disposition home or self-care (01) | LOC: PUVA 08:12 | PROVIDERS: PCP Nurse Practitioner Adult Health; Visit Provider Dermatology | DX: L40.9 Psoriasis, unspecified (principal) | CPT/HCPCS: 96900 ==

== ENCOUNTER 2022-12-14 07:20 | Outpatient (CLI) | payer OTHER, SELFPAY | END 2022-12-14 07:21 | disposition home or self-care (01) | LOC: PUVA 07:20 | PROVIDERS: PCP Nurse Practitioner Adult Health; Visit Provider Dermatology | DX: L40.9 Psoriasis, unspecified (principal) | CPT/HCPCS: 96900 ==

== ENCOUNTER 2022-12-22 07:48 | Outpatient (CLI) | payer OTHER, SELFPAY | END 2022-12-22 07:49 | disposition home or self-care (01) | LOC: PUVA 07:48 | PROVIDERS: PCP Nurse Practitioner Adult Health; Visit Provider Dermatology | DX: L40.9 Psoriasis, unspecified (principal) | CPT/HCPCS: 96900 ==

== ENCOUNTER 2022-12-28 07:23 | Outpatient (CLI) | payer OTHER, SELFPAY | END 2022-12-28 07:24 | disposition home or self-care (01) | LOC: PUVA 07:23 | PROVIDERS: PCP Nurse Practitioner Adult Health; Visit Provider Dermatology | DX: L40.9 Psoriasis, unspecified (principal) | CPT/HCPCS: 96900 ==

== ENCOUNTER 2022-12-29 07:01 | Outpatient (CLI) | payer OTHER, SELFPAY | END 2022-12-29 07:02 | disposition home or self-care (01) | LOC: PUVA 07:02 | PROVIDERS: PCP Nurse Practitioner Adult Health; Visit Provider Dermatology | DX: L40.9 Psoriasis, unspecified (principal) | CPT/HCPCS: 96900 ==

== ENCOUNTER 2023-01-04 07:14 | Outpatient (CLI) | payer OTHER, SELFPAY | END 2023-01-04 07:15 | disposition home or self-care (01) | LOC: PUVA 07:15 | PROVIDERS: PCP Nurse Practitioner Adult Health; Visit Provider Dermatology | DX: L40.9 Psoriasis, unspecified (principal) | CPT/HCPCS: 96900 ==

== ENCOUNTER 2023-01-05 07:17 | Outpatient (CLI) | payer OTHER, SELFPAY | END 2023-01-05 07:18 | LOC: PUVA 07:17 | PROVIDERS: PCP Nurse Practitioner Adult Health; Visit Provider Dermatology | DX: L40.9 Psoriasis, unspecified (principal) | CPT/HCPCS: 96900 ==

== ENCOUNTER 2023-01-08 07:14 | Outpatient (CLI) | payer OTHER, SELFPAY | END 2023-01-08 07:15 | disposition home or self-care (01) | LOC: PUVA 07:14 | PROVIDERS: PCP Nurse Practitioner Adult Health; Visit Provider Dermatology | DX: L40.9 Psoriasis, unspecified (principal) | CPT/HCPCS: 96900 ==

== ENCOUNTER 2023-01-11 08:49 | Outpatient (CLI) | payer OTHER, SELFPAY | END 2023-01-11 08:50 | disposition home or self-care (01) | LOC: PUVA 08:50 | PROVIDERS: PCP Nurse Practitioner Adult Health; Visit Provider Dermatology | DX: L40.9 Psoriasis, unspecified (principal) | CPT/HCPCS: 96900 ==

== ENCOUNTER 2023-01-12 08:29 | Outpatient (CLI) | payer OTHER, SELFPAY | END 2023-01-12 08:30 | disposition home or self-care (01) | LOC: PUVA 08:29 | PROVIDERS: PCP Nurse Practitioner Adult Health; Visit Provider Dermatology | DX: L40.9 Psoriasis, unspecified (principal) | CPT/HCPCS: 96900 ==

== ENCOUNTER 2023-02-01 07:31 | Outpatient (CLI) | payer OTHER, SELFPAY | END 2023-02-01 07:32 | disposition home or self-care (01) | LOC: PUVA 07:31 | PROVIDERS: PCP Nurse Practitioner Adult Health; Visit Provider Dermatology | DX: L40.9 Psoriasis, unspecified (principal) | CPT/HCPCS: 96900 ==

== ENCOUNTER 2023-02-02 08:04 | Outpatient (CLI) | payer OTHER, SELFPAY | END 2023-02-02 08:05 | disposition home or self-care (01) | LOC: PUVA 08:04 | PROVIDERS: PCP Nurse Practitioner Adult Health; Visit Provider Dermatology | DX: L40.9 Psoriasis, unspecified (principal) | CPT/HCPCS: 96900 ==

== ENCOUNTER 2023-02-12 13:28 | Outpatient (CLI) | payer OTHER, SELFPAY | END 2023-02-12 13:29 | disposition home or self-care (01) | LOC: PUVA 13:28 | PROVIDERS: PCP Nurse Practitioner Adult Health; Visit Provider Dermatology | DX: L40.0 Psoriasis vulgaris (principal) | CPT/HCPCS: 96900 ==

== ENCOUNTER 2023-02-15 12:55 | Outpatient (CLI) | payer OTHER, SELFPAY | END 2023-02-15 12:56 | disposition home or self-care (01) | LOC: PUVA 12:55 | PROVIDERS: PCP Nurse Practitioner Adult Health; Visit Provider Dermatology | DX: L40.9 Psoriasis, unspecified (principal) | CPT/HCPCS: 96900 ==

== ENCOUNTER 2023-02-16 07:17 | Outpatient (CLI) | payer OTHER, SELFPAY | END 2023-02-16 07:18 | disposition home or self-care (01) | LOC: PUVA 07:17 | PROVIDERS: PCP Nurse Practitioner Adult Health; Visit Provider Dermatology | DX: L40.0 Psoriasis vulgaris (principal) | CPT/HCPCS: 96900 ==

== ENCOUNTER 2023-02-19 06:57 | Outpatient (CLI) | payer OTHER, SELFPAY | END 2023-02-19 06:58 | disposition home or self-care (01) | LOC: PUVA 06:57 | PROVIDERS: PCP Nurse Practitioner Adult Health; Visit Provider Dermatology | DX: L40.9 Psoriasis, unspecified (principal) | CPT/HCPCS: 96900 ==

== ENCOUNTER 2023-03-05 14:49 | Outpatient (CLI) | payer OTHER, SELFPAY | END 2023-03-05 14:50 | disposition home or self-care (01) | LOC: PUVA 03-19 14:49 | PROVIDERS: PCP Nurse Practitioner Adult Health; Visit Provider Dermatology | DX: L40.9 Psoriasis, unspecified (principal) | CPT/HCPCS: 96900 ==

== ENCOUNTER 2023-03-09 20:06 | Outpatient (CLI) | payer OTHER, SELFPAY | END 2023-03-09 20:07 | disposition home or self-care (01) | LOC: PUVA 20:06 | PROVIDERS: PCP Nurse Practitioner Adult Health; Visit Provider Dermatology | DX: L40.9 Psoriasis, unspecified (principal) | CPT/HCPCS: 96900 ==

== ENCOUNTER 2023-03-15 08:03 | Outpatient (CLI) | payer OTHER, SELFPAY | END 2023-03-15 08:04 | disposition home or self-care (01) | LOC: PUVA 08:03 | PROVIDERS: PCP Nurse Practitioner Adult Health; Visit Provider Dermatology | DX: L40.9 Psoriasis, unspecified (principal) | CPT/HCPCS: 96900 ==

== ENCOUNTER 2023-03-16 07:24 | Outpatient (CLI) | payer OTHER, SELFPAY | END 2023-03-16 07:25 | disposition home or self-care (01) | LOC: PUVA 07:25 | PROVIDERS: PCP Nurse Practitioner Adult Health; Visit Provider Dermatology | DX: L40.9 Psoriasis, unspecified (principal) | CPT/HCPCS: 96900 ==

== ENCOUNTER 2023-03-19 07:22 | Outpatient (CLI) | payer OTHER, SELFPAY | END 2023-03-19 07:23 | disposition home or self-care (01) | LOC: PUVA 07:23 | PROVIDERS: PCP Nurse Practitioner Adult Health; Visit Provider Dermatology | DX: L40.9 Psoriasis, unspecified (principal) | CPT/HCPCS: 96900 ==

== ENCOUNTER 2023-03-22 07:16 | Outpatient (CLI) | payer OTHER, SELFPAY | END 2023-03-22 07:17 | disposition home or self-care (01) | LOC: PUVA 07:17 | PROVIDERS: PCP Nurse Practitioner Adult Health; Visit Provider Dermatology | DX: L40.9 Psoriasis, unspecified (principal) | CPT/HCPCS: 96900 ==

== ENCOUNTER 2023-03-23 07:09 | Outpatient (CLI) | payer OTHER, SELFPAY | END 2023-03-23 07:10 | disposition home or self-care (01) | LOC: PUVA 07:09 | PROVIDERS: PCP Nurse Practitioner Adult Health; Visit Provider Dermatology | DX: L40.9 Psoriasis, unspecified (principal) | CPT/HCPCS: 96900 ==

== ENCOUNTER 2023-03-26 07:04 | Outpatient (CLI) | payer OTHER, SELFPAY | END 2023-03-26 07:05 | disposition home or self-care (01) | LOC: PUVA 07:04 | PROVIDERS: PCP Nurse Practitioner Adult Health; Visit Provider Dermatology | DX: L40.9 Psoriasis, unspecified (principal) | CPT/HCPCS: 96900 ==

== ENCOUNTER 2023-03-29 07:15 | Outpatient (CLI) | payer OTHER, SELFPAY | END 2023-03-29 07:16 | disposition home or self-care (01) | LOC: PUVA 07:15 | PROVIDERS: PCP Nurse Practitioner Adult Health; Visit Provider Dermatology | DX: L40.9 Psoriasis, unspecified (principal) | CPT/HCPCS: 96900 ==

== ENCOUNTER 2023-03-30 07:17 | Outpatient (CLI) | payer OTHER, SELFPAY | END 2023-03-30 07:18 | disposition home or self-care (01) | LOC: PUVA 07:17 | PROVIDERS: PCP Nurse Practitioner Adult Health; Visit Provider Dermatology | DX: L40.9 Psoriasis, unspecified (principal) | CPT/HCPCS: 96900 ==

== ENCOUNTER 2023-04-05 07:57 | Outpatient (CLI) | payer OTHER, SELFPAY | END 2023-04-05 07:58 | disposition home or self-care (01) | PROVIDERS: PCP Nurse Practitioner Adult Health; Visit Provider Dermatology | DX: L40.9 Psoriasis, unspecified (principal) | CPT/HCPCS: 96900 ==

== ENCOUNTER 2023-04-06 07:16 | Outpatient (CLI) | payer OTHER, SELFPAY | END 2023-04-06 07:17 | disposition home or self-care (01) | LOC: PUVA 07:17 | PROVIDERS: PCP Nurse Practitioner Adult Health; Visit Provider Dermatology | DX: L40.9 Psoriasis, unspecified (principal) | CPT/HCPCS: 96900 ==

== ENCOUNTER 2023-04-09 07:20 | Outpatient (CLI) | payer OTHER, SELFPAY | END 2023-04-09 07:21 | disposition home or self-care (01) | LOC: PUVA 07:20 | PROVIDERS: PCP Nurse Practitioner Adult Health; Visit Provider Dermatology | DX: L40.9 Psoriasis, unspecified (principal) | CPT/HCPCS: 96900 ==

== ENCOUNTER 2023-04-19 07:27 | Outpatient (CLI) | payer OTHER, SELFPAY | END 2023-04-19 07:28 | disposition home or self-care (01) | LOC: PUVA 07:27 | PROVIDERS: PCP Nurse Practitioner Adult Health; Visit Provider Dermatology | DX: L40.9 Psoriasis, unspecified (principal) | CPT/HCPCS: 96900 ==

== ENCOUNTER 2023-04-20 07:00 | Outpatient (CLI) | payer OTHER, SELFPAY | END 2023-04-20 07:01 | disposition home or self-care (01) | LOC: PUVA 07:00 | PROVIDERS: PCP Nurse Practitioner Adult Health; Visit Provider Dermatology | DX: L40.9 Psoriasis, unspecified (principal) | CPT/HCPCS: 96900 ==

== ENCOUNTER 2023-04-23 07:18 | Outpatient (CLI) | payer OTHER, SELFPAY | END 2023-04-23 07:19 | disposition home or self-care (01) | LOC: PUVA 07:19 | PROVIDERS: PCP Nurse Practitioner Adult Health; Visit Provider Dermatology | DX: L40.9 Psoriasis, unspecified (principal) | CPT/HCPCS: 96900 ==

== ENCOUNTER 2023-04-26 07:47 | Outpatient (CLI) | payer OTHER, SELFPAY | END 2023-04-26 07:48 | disposition home or self-care (01) | LOC: PUVA 07:47 | PROVIDERS: PCP Nurse Practitioner Adult Health; Visit Provider Dermatology | DX: L40.9 Psoriasis, unspecified (principal) | CPT/HCPCS: 96900 ==

== ENCOUNTER 2023-04-27 07:05 | Outpatient (CLI) | payer OTHER, SELFPAY | END 2023-04-27 07:06 | disposition home or self-care (01) | LOC: PUVA 07:06 | PROVIDERS: PCP Nurse Practitioner Adult Health; Visit Provider Dermatology | DX: L40.9 Psoriasis, unspecified (principal) | CPT/HCPCS: 96900 ==

== ENCOUNTER 2023-04-30 08:42 | Outpatient (CLI) | payer OTHER, SELFPAY | END 2023-04-30 08:43 | disposition home or self-care (01) | LOC: PUVA 08:42 | PROVIDERS: PCP Nurse Practitioner Adult Health; Visit Provider Dermatology | DX: L40.9 Psoriasis, unspecified (principal) | CPT/HCPCS: 96900 ==

== ENCOUNTER 2023-05-03 07:31 | Outpatient (CLI) | payer OTHER, SELFPAY | END 2023-05-03 07:32 | disposition home or self-care (01) | LOC: PUVA 07:31 | PROVIDERS: PCP Nurse Practitioner Adult Health; Visit Provider Dermatology | DX: L40.9 Psoriasis, unspecified (principal) | CPT/HCPCS: 96900 ==

== ENCOUNTER 2023-05-04 07:06 | Outpatient (CLI) | payer OTHER, SELFPAY | END 2023-05-04 07:07 | disposition home or self-care (01) | LOC: PUVA 07:06 | PROVIDERS: PCP Nurse Practitioner Adult Health; Visit Provider Dermatology | DX: L40.9 Psoriasis, unspecified (principal) | CPT/HCPCS: 96900 ==

== ENCOUNTER 2023-05-07 07:06 | Outpatient (CLI) | payer OTHER, SELFPAY | END 2023-05-07 07:07 | disposition home or self-care (01) | LOC: PUVA 07:06 | PROVIDERS: PCP Nurse Practitioner Adult Health; Visit Provider Dermatology | DX: L40.9 Psoriasis, unspecified (principal) | CPT/HCPCS: 96900 ==

== ENCOUNTER 2023-05-11 07:09 | Outpatient (CLI) | payer OTHER, SELFPAY | END 2023-05-11 07:10 | disposition home or self-care (01) | LOC: PUVA 07:10 | PROVIDERS: PCP Nurse Practitioner Adult Health; Visit Provider Dermatology | DX: L40.9 Psoriasis, unspecified (principal) | CPT/HCPCS: 96900 ==

== ENCOUNTER 2023-05-14 07:12 | Outpatient (CLI) | payer OTHER, SELFPAY | END 2023-05-14 07:13 | disposition home or self-care (01) | PROVIDERS: PCP Nurse Practitioner Adult Health; Visit Provider Dermatology | DX: L40.9 Psoriasis, unspecified (principal) | CPT/HCPCS: 96900 ==

== ENCOUNTER 2023-05-17 07:04 | Outpatient (CLI) | payer OTHER, SELFPAY | END 2023-05-17 07:05 | disposition home or self-care (01) | LOC: PUVA 07:04 | PROVIDERS: PCP Nurse Practitioner Adult Health; Visit Provider Dermatology | DX: L40.9 Psoriasis, unspecified (principal) | CPT/HCPCS: 96900 ==

== ENCOUNTER 2023-05-18 07:10 | Outpatient (CLI) | payer OTHER, SELFPAY | END 2023-05-18 07:11 | disposition home or self-care (01) | LOC: PUVA 07:10 | PROVIDERS: PCP Nurse Practitioner Adult Health; Visit Provider Dermatology | DX: L40.9 Psoriasis, unspecified (principal) | CPT/HCPCS: 96900 ==

== ENCOUNTER 2023-05-21 07:12 | Outpatient (CLI) | payer OTHER, SELFPAY | END 2023-05-21 07:13 | disposition home or self-care (01) | LOC: PUVA 07:13 | PROVIDERS: PCP Nurse Practitioner Adult Health; Visit Provider Dermatology | DX: L40.9 Psoriasis, unspecified (principal) | CPT/HCPCS: 96900 ==

== ENCOUNTER 2023-05-24 07:09 | Outpatient (CLI) | payer OTHER, SELFPAY | END 2023-05-24 07:10 | disposition home or self-care (01) | LOC: PUVA 07:09 | PROVIDERS: PCP Nurse Practitioner Adult Health; Visit Provider Dermatology | DX: L40.9 Psoriasis, unspecified (principal) | CPT/HCPCS: 96900 ==

== ENCOUNTER 2023-05-25 07:06 | Outpatient (CLI) | payer OTHER, SELFPAY | END 2023-05-25 07:07 | disposition home or self-care (01) | LOC: PUVA 07:06 | PROVIDERS: PCP Nurse Practitioner Adult Health; Visit Provider Dermatology | DX: L40.9 Psoriasis, unspecified (principal) | CPT/HCPCS: 96900 ==

== ENCOUNTER 2023-05-28 07:13 | Outpatient (CLI) | payer OTHER, SELFPAY | END 2023-05-28 07:14 | disposition home or self-care (01) | LOC: PUVA 07:14 | PROVIDERS: PCP Nurse Practitioner Adult Health; Visit Provider Dermatology | DX: L40.9 Psoriasis, unspecified (principal) | CPT/HCPCS: 96900 ==

== ENCOUNTER 2023-05-31 07:22 | Outpatient (CLI) | payer OTHER, SELFPAY | END 2023-05-31 07:23 | disposition home or self-care (01) | LOC: PUVA 07:22 | PROVIDERS: PCP Nurse Practitioner Adult Health; Visit Provider Dermatology | DX: L40.9 Psoriasis, unspecified (principal) | CPT/HCPCS: 96900 ==

== ENCOUNTER 2023-06-01 07:30 | Outpatient (CLI) | payer OTHER, SELFPAY | END 2023-06-01 07:31 | disposition home or self-care (01) | LOC: PUVA 07:31 | PROVIDERS: PCP Nurse Practitioner Adult Health; Visit Provider Dermatology | DX: L40.8 Other psoriasis (principal) | CPT/HCPCS: 96900 ==

== ENCOUNTER 2023-06-07 07:21 | Outpatient (CLI) | payer OTHER, SELFPAY | END 2023-06-07 07:22 | disposition home or self-care (01) | LOC: PUVA 07:21 | PROVIDERS: PCP Nurse Practitioner Adult Health; Visit Provider Dermatology | DX: L40.9 Psoriasis, unspecified (principal) | CPT/HCPCS: 96900 ==

== ENCOUNTER 2023-06-08 07:18 | Outpatient (CLI) | payer OTHER, SELFPAY | END 2023-06-08 07:19 | disposition home or self-care (01) | LOC: PUVA 07:19 | PROVIDERS: PCP Nurse Practitioner Adult Health; Visit Provider Dermatology | DX: L40.9 Psoriasis, unspecified (principal) | CPT/HCPCS: 96900 ==

== ENCOUNTER 2023-06-11 07:06 | Outpatient (CLI) | payer OTHER, SELFPAY | END 2023-06-11 07:07 | disposition home or self-care (01) | LOC: PUVA 07:07 | PROVIDERS: PCP Nurse Practitioner Adult Health; Visit Provider Dermatology | DX: L40.9 Psoriasis, unspecified (principal) | CPT/HCPCS: 96900 ==

== ENCOUNTER 2023-06-15 07:15 | Outpatient (CLI) | payer OTHER, SELFPAY | END 2023-06-15 07:16 | disposition home or self-care (01) | LOC: PUVA 07:15 | PROVIDERS: PCP Nurse Practitioner Adult Health; Visit Provider Dermatology | DX: L40.9 Psoriasis, unspecified (principal) | CPT/HCPCS: 96900 ==

== ENCOUNTER 2023-06-18 07:05 | Outpatient (CLI) | payer OTHER, SELFPAY | END 2023-06-18 07:06 | disposition home or self-care (01) | PROVIDERS: PCP Nurse Practitioner Adult Health; Visit Provider Dermatology | DX: L40.9 Psoriasis, unspecified (principal) | CPT/HCPCS: 96900 ==

== ENCOUNTER 2023-07-01 05:28 | Outpatient (RCR) | payer OTHER, SELFPAY ==
[2023-07-01 07:25] VITALS: BP 138/88; PULSE 80; RESP 18; TEMP 36.5; O2SAT 96
[2023-07-01] MEDS: inFLIXimab 600 MG in Normal Saline 250 ML 125 MG IVPB (08:13)
[2023-07-01] MEDS: Normal Saline Flush 10 ML SYR IVP (08:14)
[2023-07-01 08:45] VITALS: BP 137/85; PULSE 74; RESP 19; TEMP 36.8; O2SAT 96
[2023-07-01 09:15] VITALS: BP 133/86; PULSE 68; RESP 20; TEMP 36.6; O2SAT 96
[2023-07-01 09:45] VITALS: BP 144/87; PULSE 76; RESP 18; TEMP 36.5; O2SAT 99
[2023-07-01 10:15] VITALS: BP 145/88; PULSE 74; RESP 19; TEMP 36.4; O2SAT 99
== END 2023-07-06 23:59 | disposition home or self-care (01) ==
LOC: INF 05:28
PROVIDERS: PCP Nurse Practitioner Adult Health; Visit Provider Family Medicine
DX: L40.9 Psoriasis, unspecified (principal)
CPT/HCPCS: 96365; 96366; J1745

== ENCOUNTER 2023-07-14 05:04 | Outpatient (RCR) | payer OTHER, SELFPAY ==
[2023-07-07 00:33] VITALS: BP 145/88; PULSE 74; RESP 19; TEMP 36.4
[2023-07-14] MEDS: Normal Saline Flush 10 ML SYR IVP (07:32)
[2023-07-14] MEDS: inFLIXimab 600 MG in Normal Saline 250 ML 125 MG IVPB (08:04)
[2023-07-14 08:05] VITALS: BP 134/85; PULSE 85; RESP 17; TEMP 36.6; O2SAT 94
[2023-07-14 08:35] VITALS: BP 125/80; PULSE 73; RESP 17; TEMP 36.5; O2SAT 94
[2023-07-14 09:05] VITALS: BP 130/80; PULSE 70; RESP 17; TEMP 36.5; O2SAT 94
[2023-07-14 09:35] VITALS: BP 126/78; PULSE 74; RESP 17; TEMP 36.4; O2SAT 95
[2023-07-14 10:05] VITALS: BP 143/81; PULSE 78; RESP 17; TEMP 36; O2SAT 96
== END 2023-08-06 23:59 | disposition home or self-care (01) ==
LOC: INF 05:04
PROVIDERS: PCP Nurse Practitioner Adult Health; Visit Provider Family Medicine
DX: L40.9 Psoriasis, unspecified (principal)
CPT/HCPCS: 96365; 96366; J1745

== ENCOUNTER 2023-08-12 05:01 | Outpatient (RCR) | payer OTHER, SELFPAY ==
[2023-08-07 00:12] VITALS: BP 145/88; PULSE 74; RESP 19; TEMP 36.4
[2023-08-12] MEDS: inFLIXimab 600 MG in Normal Saline 250 ML 125 MG IVPB (08:01)
[2023-08-12] MEDS: Normal Saline Flush 10 ML SYR IVP (08:02)
[2023-08-12 08:05] VITALS: BP 138/84; PULSE 74; RESP 16; TEMP 37.1; O2SAT 95
[2023-08-12 08:35] VITALS: BP 133/83; PULSE 69; RESP 16; TEMP 37; O2SAT 98
[2023-08-12 09:05] VITALS: BP 131/82; PULSE 73; RESP 16; TEMP 36.4; O2SAT 94
[2023-08-12 09:35] VITALS: BP 138/86; PULSE 74; RESP 16; TEMP 36.1; O2SAT 98
[2023-08-12 10:05] VITALS: BP 141/81; PULSE 80; RESP 16; TEMP 36.5; O2SAT 95
== END 2023-09-05 23:59 | disposition home or self-care (01) ==
LOC: INF 05:01
PROVIDERS: PCP Nurse Practitioner Adult Health; Visit Provider Family Medicine
DX: L40.0 Psoriasis vulgaris (principal)
CPT/HCPCS: 96365; 96366; J1745

== ENCOUNTER 2023-10-07 03:41 | Outpatient (RCR) | payer OTHER, SELFPAY ==
[2023-09-06 00:21] VITALS: BP 145/88; PULSE 74; RESP 19; TEMP 36.4
[2023-10-07] MEDS: Normal Saline Flush 10 ML SYR IVP (07:51)
[2023-10-07] MEDS: inFLIXimab 600 MG in Normal Saline 250 ML 125 MG IVPB (07:51)
[2023-10-07 07:54] VITALS: BP 127/81; PULSE 69; RESP 16; TEMP 36.5; O2SAT 96
[2023-10-07 08:25] VITALS: BP 130/83; PULSE 69; RESP 16; TEMP 36.7; O2SAT 98
[2023-10-07 08:55] VITALS: BP 133/82; PULSE 68; RESP 16; TEMP 36.3; O2SAT 98
[2023-10-07 09:25] VITALS: BP 139/82; PULSE 72; RESP 16; TEMP 36.7; O2SAT 97
[2023-10-07 09:55] VITALS: BP 147/92; PULSE 73; RESP 16; TEMP 36.7; O2SAT 100
== END 2023-11-06 23:59 | disposition home or self-care (01) ==
LOC: INF 03:41
PROVIDERS: PCP Nurse Practitioner Adult Health; Visit Provider Family Medicine
DX: L40.9 Psoriasis, unspecified (principal)
CPT/HCPCS: 96365; 96366; J1745

== ENCOUNTER 2023-11-03 14:58 | Emergency (ER) | payer OTHER, SELFPAY ==
[2023-11-03 14:59] VITALS: PULSE 88; RESP 16; TEMP 36.6; O2SAT 98
--- NOTE | 2023-11-03 15:07 | ED.GENADUL_ITS ---
Discharge Plan Disposition Patient Disposition: Home Condition: Good Discharge Details Clinical Impression: Laceration of right index finger Primary Care Provider: Lizbeth Li ED Provider: Adam Ordaz Home Meds and New Rx's Prescriptions: No Action bisacodyl [Dulcolax (bisacodyl)] 5 mg tablet,delayed release (DR/EC) 5 mg PO ONCE Qty: 4 0RF Rx Instructions: Take per colonoscopy instructions provided by ordering providers office polyethylene glycol 3350 17 gram/dose powder 17 g PO ONCE Qty: 238 0RF Rx Instructions: Take per colonoscopy instructions provided by ordering providers office sildenafil 100 mg tablet 100 mg PO DAILY PRN Rx Instructions: administer 30 minutes to 4 hours before activity sodium chloride 0.65 % aerosol,spray 2 spray intranasal QID PRN nortriptyline 50 mg capsule 150 mg PO QHS insulin glargine 100 unit/mL cartridge 60 unit SUBCUT DAILY amlodipine-benazepril 10-20 mg Capsule 1 cap PO DAILY buspirone 5 mg tablet 15 mg BID metformin 1,000 mg tablet 1,000 mg BID metoprolol tartrate 25 mg tablet 50 mg BID trazodone 50 mg tablet 75 mg PO HS omeprazole 20 mg Capsule,Delayed Release(Dr/Ec) 20 mg PO DAILY doxycycline hyclate 100 mg tablet 100 mg PO BID Qty: 28 0RF bupropion HCl 300 mg tablet extended release 24 hr 300 mg PO DAILY Discharge Instructions Instructions: Laceration Repair With Glue ED Additional Instructions: At this time your finger laceration has been repaired with glue. This will come off on its own in the next 4 to 7 days. Please keep the area dry. Please wear the splint to prevent any increased tension and to allow for good wound healing. If you notice any red streaking, please return immediately as this could represent infection. If you notice any worsening of your symptoms, or any new symptoms such as vomiting, diarrhea, fever, chills, shortness of breath, chest pain, numbness, weakness, or fainting , please return immediately to the emergency department for reevaluation. Please follow up with your primary care provider as soon as possible for reassessment and reevaluation. As always, it was a pleasure participating in your medical care today. Referrals: Rasheeda Mckenzie [[facility] REGISTERED NURSE] - [facility] General Date/Time Provider Initiated Documentation: 11/03/23 15:00 . HPI Narrative: This is a pleasant 58-year-old male with a past medical history of diabetes, hypertension, obstructive sleep apnea, who presents today for evaluation of right index finger laceration. He is right-hand dominant. He was sharpening his chainsaw today when something slipped and cut the dorsal aspect of his index finger on the mid phalanx. He denies any numbness or tingling. His bleeding has improved. No other complaints at this time. No weakness. Related Data Home Medications ?Medication ?Instructions ?Recorded ?Confirmed buspirone 5 mg tablet 15 mg BID 09/26/21 12/03/22 doxycycline hyclate 100 mg tablet 100 mg PO BID #28 tabs 09/26/21 12/03/22 metformin 1,000 mg tablet 1,000 mg BID 09/26/21 12/03/22 metoprolol tartrate 25 mg tablet 50 mg BID 09/26/21 12/03/22 omeprazole 20 mg capsule,delayed 20 mg PO DAILY 09/26/21 12/03/22 release trazodone 50 mg tablet 75 mg PO HS 09/26/21 12/03/22 amlodipine 10 mg-benazepril 20 mg 1 cap PO DAILY 06/12/22 12/03/22 capsule bupropion HCl 300 mg 24 hr tablet, 300 mg PO DAILY 10/23/22 12/03/22 extended release nortriptyline 50 mg capsule 150 mg PO QHS 11/11/22 12/03/22 sildenafil 100 mg tablet 100 mg PO DAILY PRN 11/11/22 12/03/22 sodium chloride 0.65 % nasal spray 2 spray intranasal QID PRN 11/11/22 12/03/22 aerosol bisacodyl 5 mg tablet,delayed 5 mg PO ONCE #4 tabs 11/13/22 12/03/22 release (Dulcolax (bisacodyl)) polyethylene glycol 3350 17 17 g PO ONCE #238 grams 11/13/22 12/03/22 gram/dose oral powder insulin glargine 100 unit/mL 60 unit subcut DAILY 11/01/23 subcutaneous cartridge Previous Rx's ?Medication ?Instructions ?Recorded doxycycline hyclate 100 mg tablet 100 mg PO BID #28 tabs 09/26/21 bisacodyl 5 mg tablet,delayed 5 mg PO ONCE #4 tabs 11/13/22 release (Dulcolax (bisacodyl)) polyethylene glycol 3350 17 17 g PO ONCE #238 grams 11/13/22 gram/dose oral powder Allergies Allergy/AdvReac Type Severity Reaction Status Date / Time adalimumab (From Humira) Allergy Unknown Verified 12/03/22 07:28 diclofenac Allergy Swelling/Ed Unverified 12/03/22 07:28 rena gabapentin Allergy Swelling/Ed Unverified 12/03/22 07:28 rena General Stated Complaint: Laceration MALIK: 5 Review of Systems All systems reviewed & are unremarkable except as noted in HPI and below Exam Narrative Exam Narrative: 1.Const: Well-nourished, Well-developed, appearing stated age 2.Eyes: PERRL, no conjunctival injection, and symmetrical lids. 3.ENT: Atraumatic external nose and ears. Moist MM. Neck: Symmetric, trachea midline, No thyromegaly. 4.CVS: +S1/S2, No murmurs or gallops. Peripheral pulses 2+ and equal in all extremities. Brisk capillary refill in all extremities. 5.RESP: Unlabored respiratory effort. Clear to auscultation bilaterally. No wheezes rales or rhonchi 6.GI: Soft, Nontender/Nondistended, No hepatosplenomegaly. No guarding or rebound. 7.MSK: Normocephalic, Extremities w/o deformity or ttp. No cyanosis or clubbing, Normal movement of all extremities. Normal flexion and extension strength. No weakness or deficit. Capillary refill is brisk in all fingers. 8.Skin: Warm, Dry. No rashes or lesions. Small 1 cm superficial laceration is present on the dorsal aspect of the index finger at the mid phalanx. No active bleeding. No tendon involvement. 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 Sensation grossly intact, no focal neurologic deficits. 10.Psych: (AAO) x3. Appropriate mood and affect Course Vital Signs Vital signs: Vital Signs Temperature 36.6 C 11/03/23 14:59 Pulse 88 11/03/23 14:59 Respiratory Rate 16 11/03/23 14:59 Pulse Oximetry 98 11/03/23 14:59 Temperature 36.6 C 11/03/23 14:59 Temperature Source Temporal Artery Scan 11/03/23 14:59 Pulse 88 11/03/23 14:59 Respiratory Rate 16 11/03/23 14:59 Respiratory Effort Normal 11/03/23 15:02 Blood Pressure Position Sitting 11/03/23 14:59 Pulse Oximetry 98 11/03/23 14:59 Oxygen Delivery Method Room Air 11/03/23 14:59 Oxygen Flow Rate 0 11/03/23 14:59 Pain Level 7 11/03/23 14:59 Procedures Laceration Laceration 1: Site: hand Side (If applicable): right Size (cm): 1 Description: linear Depth: simple, single layer Pre-repair: wound explored and irrigated extensively (With chlorhexidine) Skin layer closed with: other (Glue) Medical Decision Making This is a pleasant 58-year-old male with a past medical history of jorge l betes, hypertension, obstructive sleep apnea, who presents today for evaluation of right index finger laceration. He is right-hand dominant. He was sharpening his chainsaw today when something slipped and cut the dorsal aspect of his index finger on the mid phalanx. He denies any numbness or tingling. His bleeding has improved. No other complaints at this time. No weakness. Physical exam demonstrates Small 1 cm superficial laceration is present on the dorsal aspect of the index finger at the mid phalanx. No active bleeding. No tendon involvement. Patient is amendable to gluing. No indication for suturing in this scenario. No evidence of foreign body. Area was cleaned and sterilized with chlorhexidine. Patient tolerated this well. Will place the patient in a splint to decrease the skin strain from flexion. Patient is up-to-date on his tetanus from 2021 3 PM The area was dermabonded after being cleaned with chlorhexidine. He tolerated this well. The area was reapproximated, good wound edge reapproximation and closure. The area was splinted and bandaged. Patient tolerated this well. Patient will be discharged home. Discussed red flags which return. I have exte nsively reviewed the treatment plan and discharge instructions with the patient. I have addressed all patient concerns at this time. The patient was made aware of what symptoms to monitor for that would warrant a return to the emergency department. Discussed the plan with the patient, they demonstrate verbal understanding and agreement with our assessment and plan at this time. The documentation in this chart was dictated using [employer] dictation software. Please excuse any dictation errors. Quality:SDOH Health Related Social Needs: No Data to Display PFSH All Active Problems (Updated 11/03/23 @ 15:23 by Adam Ordaz DO) Laceration of right index finger (Acute) Cirrhosis (Acute) Cervical disc disorder with radiculopathy (Acute) Spondylosis (Acute) Spinal stenosis of thoracic region (Acute) Steatohepatitis, non-alcoholic (Acute) Family history of GI malignancy (Acute) Medical History Tinnitus Hearing loss Tobacco use disorder [place] (obstructive sleep apnea) Panic disorder without agoraphobia Rotator cuff rupture Hypertension Lateral epicondylitis Lumbar radiculopathy Obesity Pain in right arm Kidney stones Psoriasis Diabetes mellitus Surgical History History of esophagogastroduodenoscopy H/O arthroscopic knee surgery Right H/O arthroscopy of shoulder Bilateral H/O colonoscopy (~11/2022) Hx of fasciotomy right arm Social History Smoking/Tobacco Use Status: Former Tobacco Use Quit Date: 03/08/03 Tobacco: How many years used: 20 Smoking risk assessment performed?: Yes Alcohol Intake: current Alcohol Intake frequency: holidays/special occasions only Alcohol type: beer Drug use: Never Substance use type: does not use Housing: house Do you feel safe at home: Yes Do you feel safe in your relationship?: Yes
[2023-11-03 15:29] VITALS: PULSE 88; RESP 16; TEMP 36.6; O2SAT 98
== END 2023-11-03 15:31 | disposition home or self-care (01) ==
LOC: ER 15:32
PROVIDERS: Emergency Provider Student in an Organized Health Care Education/Training Program; PCP Nurse Practitioner Adult Health
DX: S61.210A Laceration without foreign body of right index finger without damage to nail, initial encounter (principal); W29.3XXA Contact with powered garden and outdoor hand tools and machinery, initial encounter
CPT/HCPCS: 29130; 99283

== ENCOUNTER 2023-12-09 01:38 | Outpatient (RCR) | payer OTHER, SELFPAY ==
[2023-11-07 00:02] VITALS: BP 145/88; PULSE 74; RESP 19; TEMP 36.4
[2023-12-09 08:15] VITALS: BP 132/81; PULSE 68; RESP 16; TEMP 37.5; O2SAT 96
[2023-12-09] MEDS: inFLIXimab 600 MG in Normal Saline 250 ML 125 MG IVPB (08:15)
[2023-12-09] MEDS: Normal Saline Flush 10 ML SYR IVP (08:18)
[2023-12-09 08:45] VITALS: BP 122/78; PULSE 64; RESP 16; TEMP 36.4; O2SAT 94
[2023-12-09 09:15] VITALS: BP 135/82; PULSE 68; RESP 16; TEMP 36.4; O2SAT 94
[2023-12-09 09:45] VITALS: BP 125/75; PULSE 66; RESP 16; TEMP 36.4; O2SAT 94
[2023-12-09 10:15] VITALS: BP 126/76; PULSE 66; RESP 16; TEMP 36.4; O2SAT 98
== END 2024-01-06 23:59 | disposition home or self-care (01) ==
LOC: INF 01:38
PROVIDERS: PCP Nurse Practitioner Adult Health; Visit Provider Family Medicine
DX: L40.9 Psoriasis, unspecified
CPT/HCPCS: 96365; 96366; J1745

== ENCOUNTER 2023-12-27 10:39 | Day surgery (SDC) | payer OTHER, SELFPAY ==
--- NOTE | 2023-12-26 10:14 | W.PM.DSUDISC ---
Date of service: 12/27/23 Time of Service: 13:03 Discharge Plan Disposition Patient Disposition: Home Condition: Good Discharge Details Reason For Visit: screening colonocsopy Attending Provider: Mark Quevedo Primary Care Provider: Lizbeth Li Home Meds and New Rx's Prescriptions: Continued sildenafil 100 mg tablet 100 mg PO DAILY PRN Rx Instructions: administer 30 minutes to 4 hours before activity sodium chloride 0.65 % aerosol,spray 2 spray intranasal QID PRN nortriptyline 50 mg capsule 150 mg PO QHS insulin glargine 100 unit/mL cartridge 60 unit SUBCUT DAILY amlodipine-benazepril 10-20 mg Capsule 1 cap PO DAILY buspirone 5 mg tablet 15 mg PO BID metformin 1,000 mg tablet 1,000 mg PO BID metoprolol tartrate 25 mg tablet 50 mg PO BID trazodone 50 mg tablet 75 mg PO HS omeprazole 20 mg Capsule,Delayed Release(Dr/Ec) 20 mg PO DAILY bupropion HCl 300 mg tablet extended release 24 hr 300 mg PO DAILY Jardiance 25 mg tablet 25 mg PO DAILY Discontinued polyethylene glycol 3350 17 gram/dose powder 238 g PO ONCE Qty: 238 0RF Rx Instructions: take per colonoscopy instructions bisacodyl [Dulcolax (bisacodyl)] 5 mg tablet,delayed release (DR/EC) 5 mg PO ONCE Qty: 4 0RF Rx Instructions: take per colonoscopy instructions Discharge Instructions Instructions: Colon polyps Additional Instructions: Efra, it is great seeing you again today, and I hope you are comfortable during the procedure. The colonoscopy went very smoothly. Your prep was excellent. I did find and remove 1 small polyp in the upper part of your rectum today. To the naked eye, it does not appear worrisome, but I will send it off to the pathologist for their review. Polyps, and different types, and the information from their review could be used to help guide the timing of your next colonoscopy. Those results usually take about a week or 2 to get back, but as soon as the office has them, we will be in touch with those final recommendations. If you have any questions in the meantime, please do not hesitate to ask. 1. If tolerated, consume a soft, low fiber diet for 1-2 days. 2[address] Do not drive, drink alcohol, operate machinery, make critical decisions, or do activities that require coordination or balance for 24 hours. 3. Because air was put into your colon during the procedure, expelling air from your rectum (passing gas or farting) is normal. 4. You may not have a bowel movement for 1-3 days because of the colonoscopy prep. This is normal. 5. Go directly to the emergency room if you notice any of the following: Develop chills (warm to touch), or if you have a thermometer and your temperature is above 101 Difficulty breathing or difficultly swallowing Persistent vomiting Severe abdominal pain, other than gas cramps Severe chest pain Black, tarry stools Any bleeding ? exceeding one tablespoon 6. Call your physician if the site where your intravenous was started becomes red, swollen, painful, and warm to touch. 7. Your physician has reviewed your pre-procedure medications. Please continue to take those medications as previously ordered. You will be given specific information/education regarding any changes to your medications before leaving. Activity:: Activity as Tolerated Diet:: As Tolerated Discharge Orders Discharge Orders: Discharge Order (Routine); Ordered 12/26/23 Ordered By: Mark Quevedo DS: Diagnosis Discharge Diagnosis (1) Encounter for screening colonoscopy: Asessment and Plan: Follow-up on polypectomy results
--- NOTE | 2023-12-26 10:18 | W.PM.DSUDISC ---
Date of service: 12/27/23 Discharge Plan Disposition Patient Disposition: Home Condition: Good Discharge Details Reason For Visit: screening colonocsopy Attending Provider: Mark Quevedo Primary Care Provider: Lizbeth Li Home Meds and New Rx's Prescriptions: Continued sildenafil 100 mg tablet 100 mg PO DAILY PRN Rx Instructions: administer 30 minutes to 4 hours before activity sodium chloride 0.65 % aerosol,spray 2 spray intranasal QID PRN nortriptyline 50 mg capsule 150 mg PO QHS insulin glargine 100 unit/mL cartridge 60 unit SUBCUT DAILY amlodipine-benazepril 10-20 mg Capsule 1 cap PO DAILY buspirone 5 mg tablet 15 mg PO BID metformin 1,000 mg tablet 1,000 mg PO BID metoprolol tartrate 25 mg tablet 50 mg PO BID trazodone 50 mg tablet 75 mg PO HS omeprazole 20 mg Capsule,Delayed Release(Dr/Ec) 20 mg PO DAILY bupropion HCl 300 mg tablet extended release 24 hr 300 mg PO DAILY Jardiance 25 mg tablet 25 mg PO DAILY Discontinued polyethylene glycol 3350 17 gram/dose powder 238 g PO ONCE Qty: 238 0RF Rx Instructions: take per colonoscopy instructions bisacodyl [Dulcolax (bisacodyl)] 5 mg tablet,delayed release (DR/EC) 5 mg PO ONCE Qty: 4 0RF Rx Instructions: take per colonoscopy instructions Discharge Instructions Additional Instructions: 1. If tolerated, consume a soft, low fiber diet for 1-2 days. [address] Do not drive, drink alcohol, operate machinery, make critical decisions, or do activities that require coordination or balance for 24 hours. 3. Because air was put into your colon during the procedure, expelling air from your rectum (passing gas or farting) is normal. 4. You may not have a bowel movement for 1-3 days because of the colonoscopy prep. This is normal. 5. Go directly to the emergency room if you notice any of the following: Develop chills (warm to touch), or if you have a thermometer and your temperature is above 101 Difficulty breathing or difficultly swallowing Persistent vomiting Severe abdominal pain, other than gas cramps Severe chest pain Black, tarry stools Any bleeding ? exceeding one tablespoon 6. Call your physician if the site where your intravenous was started becomes red, swollen, painful, and warm to touch. 7. Your physician has reviewed your pre-procedure medications. Please continue to take those medications as previously ordered. You will be given specific information/education regarding any changes to your medications before leaving. Activity:: Activity as Tolerated Diet:: As Tolerated DS: Diagnosis Discharge Diagnosis (1) Encounter for screening colonoscopy:
--- NOTE | 2023-12-26 10:19 | W.COLOREPORT ---
Date of service: 12/27/23 Time of Service: 13:04 Colonoscopy Report Date of procedure: 12/27/23 Pre-op diagnosis general: screening colonoscopy Post-op diagnosis procedure note: other (Rectal polyp) Procedure: colonoscopy with polypectomy Surgeon: Mark Quevedo Anesthesia Type: General:No Airway Estimated blood loss (mL): 5 Pathology: other (0.25 cm rectal polyp) Complications: None Disposition: same day Indications: Efra is a 58 year old man with a history of adenomatous polyps who needs his next screening colonoscopy Prep: Miralax/Dulcolax Procedure Start Time: 12:33 Procedure End Time: 12:58 Retraction Time: 16 Findings: 0.25 cm rectal polyp Procedure Description: After the induction of anesthesia, and with the patient in left lateral decubitus position, I began by performing an external anorectal exam.? Perineum and skin were normal, as was the anal verge.? There was no evidence of external hemorrhoids.? Next, I performed a digital rectal exam.? I did not appreciate any abnormal findings.? Next, I advanced a colonoscope into the rectal vault.? I performed retroflexion.? This appeared normal.? Using insufflation, I then advanced the colonoscope beyond the rectal folds and into the sigmoid colon before advancing towards the cecum.? The scope was noted to be in the cecum by identification of the ileocecal valve and appendiceal orifice.? I then began withdrawing the colonoscope using repeated irrigation as necessary for full evaluation of the colonic mucosa. ?Once the scope was withdrawn to the level of the rectum, great care was taken to examine portions of the rectal folds.? In the upper portion of the rectal vault was a 0.25 cm mostly flat polyp. This was removed with cold forceps with minimal bleeding. Finally, the scope was withdrawn and the patient was brought to the same-day surgery recovery unit as the anesthetic wore off. ?The findings and instructions were shared with the patient prior to discharge. [place] Bowel Prep [place] Bowel Prep Right Colon: 3 Left Colon: 3 Transverse Colon: 3 Total Score: 9
[2023-12-27 11:02] VITALS: BP 143/88; PULSE 72; RESP 16; TEMP 36.4; O2SAT 96
[2023-12-27] MEDS: Lactated Ringers 1,000 ML 80 ML IV (11:25)
--- NOTE | 2023-12-27 12:07 | W.ANESPRE ---
General Info Date of Service Date Performed: 12/27/23 Height: 6 ft Weight: 119 kg Body Mass Index (BMI): 35.6 Surgical Procedure: Operation Date: 12/27/23 12:05 Proposed Procedure Side Surgeon wander Quevedo MD Meds Allergies and Home Medications Allergies Allergy/AdvReac Type Severity Reaction Status Date / Time adalimumab (From Humira) Allergy Unknown dyspnea Verified 12/27/23 10:53 diclofenac Allergy Swelling/Ed Unverified 12/27/23 10:53 rena gabapentin Allergy Swelling/Ed Unverified 12/27/23 10:53 rena Home Medication ?Medication ?Instructions ?Recorded buspirone 5 mg tablet 15 mg PO BID 09/26/21 metformin 1,000 mg tablet 1,000 mg PO BID 09/26/21 metoprolol tartrate 25 mg tablet 50 mg PO BID 09/26/21 omeprazole 20 mg capsule,delayed 20 mg PO DAILY 09/26/21 release trazodone 50 mg tablet 75 mg PO HS 09/26/21 amlodipine 10 mg-benazepril 20 mg 1 cap PO DAILY 06/12/22 capsule bupropion HCl 300 mg 24 hr tablet, 300 mg PO DAILY 10/23/22 extended release nortriptyline 50 mg capsule 150 mg PO QHS 11/11/22 sildenafil 100 mg tablet 100 mg PO DAILY PRN 11/11/22 sodium chloride 0.65 % nasal spray 2 spray intranasal QID PRN 11/11/22 aerosol insulin glargine 100 unit/mL 60 unit subcut DAILY 11/01/23 subcutaneous cartridge empagliflozin 25 mg tablet 25 mg PO DAILY 12/24/23 (Jardiance) Current Visit Medications: Current Medications Generic Name Dose Route Start Last Admin Trade Name Freq PRN Reason Stop Dose Admin Hyoscyamine Sulfate 0.125 mg 12/26/23 10:20 Hyoscyamine 0.125 Mg Sl/Oral/Chew SL 01/25/24 10:19 DIRECTED PRN Ringer's Solution 1,000 mls @ 80 mls/hr 12/27/23 06:00 12/27/23 11:25 IV 12/27/23 23:59 80 mls/hr INFUSION ASHELY Administration IV Miscellaneous Supplies 1 each 12/27/23 06:00 Iv Access IV 12/27/23 23:59 DIRECTED ASHELY Ondansetron HCl 4 mg 12/26/23 10:20 Ondansetron 4 Mg/2 Ml Vial IVP 01/25/24 10:19 Q4H PRN PRN Nausea / Vomiting Sodium Chloride 0 ml 12/27/23 06:00 Normal Saline Flush 10 Ml Syr IV 12/27/23 23:59 PRN PRN Sodium Chloride 0 ml 12/27/23 06:00 Normal Saline 10 Ml Vial IJ 12/27/23 23:59 DIRECTED PRN Sterile Water 0 ml 12/27/23 06:00 Water,Injection,Sterile 10 Ml Vial IJ 12/27/23 23:59 DIRECTED PRN PFSH Active Problems Active Problems: Problem Status Onset Code Cirrhosis Acute K74.60 Cervical disc disorder with radiculopathy Acute M50.10 Spondylosis Acute M47.9 Spinal stenosis of thoracic region Acute M48.04 Steatohepatitis, non-alcoholic Acute K75.81 Family history of GI malignancy Acute Z80.0 Medical History Medical History (Updated 12/26/23 @ 10:15 by Mark Quevedo MD) Encounter for screening colonoscopy Tinnitus Hearing loss Tobacco use disorder [place] (obstructive sleep apnea) Panic disorder without agoraphobia Rotator cuff rupture Hypertension Lateral epicondylitis Lumbar radiculopathy Obesity Pain in right arm Kidney stones Psoriasis Diabetes mellitus Surgical History Surgical History (Updated 12/23/23 @ 15:21 by Arline Pacheco RN) History of elbow surgery History of esophagogastroduodenoscopy H/O arthroscopic knee surgery Right H/O arthroscopy of shoulder Bilateral H/O colonoscopy (~11/2022) Hx of fasciotomy right arm Tobacco Smoking/Tobacco Use Status: Former Tobacco Use Alcohol Alcohol Intake: current Alcohol intake frequency: holidays/special occasions only Alcohol type: beer Substance Use Substance use: Never Substance use type: does not use Vital Signs and Lab Results Vital Signs Most Recent Vital Signs in EMR: Most Recent Vital Signs Temp Pulse Resp BP Pulse Ox 36.4 C L 72 16 143/88 H 96 12/27/23 11:02 12/27/23 11:02 12/27/23 11:02 12/27/23 11:02 12/27/23 11:02 Point of Care Results Point of Care Results: Finger Stick Blood Glucose 125 12/27/23 11:09 Lab Results Blood Type / Crossmatch: No Data to Display Complete Blood Count: No Data to Display Complete Metabolic Panel: No Data to Display Liver Function Panel: No Data to Display Coagulation Panel: No Data to Display Cardiac Panel: No Data to Display Arterial Blood Gas: No Data to Display Venous Blood Gas: No Data to Display Pancreas Panel: No Data to Display Thyroid Panel: No Data to Display Infectious Disease: No Data to Display Blood Cultures: No Data to Display Toxicology Panel: No Data to Display Anesthesia Assessment and Plan Anesthesia History Personal History: No History of Anesthesia Complications Family History: No Family History of Anesthesia Complications Exercise Tolerance Exercise Tolerance: Metabolic Equivalents>4 Pertinent Negatives Pertinent Negatives: No Symptoms of GERD (well controlled with med), No Major Cardiovascular Symptoms or Complaints and No Major Pulmonary Symptoms or Complaints Cardiac & Pulmonary Exam Cardiac Exam: Normal S1/S2 Heart Sounds Pulmonary Exam: Clear Bilateral Breath Sounds Implantable Cardiac Device Does patient have a Pacemaker or an ICD?: No Airway Exam Known Difficult Airway: No Mallampati Class: 2 Mouth Opening: Normal (> 3cm) Thyromental Distance: Greater than 3 cm Facial Hair: Full Elena Neck Range of Motion: Full ROM Neck Circumference: Normal Teeth Condition: Normal Dentition (right front tooth chipped) ASA Classification ASA Score: ASA 3 Emergency Case?: No NPO Status NPO Status: NPO Clears >2 hours, Solids >8 hours Anesthesia Plan Resuscitation Status: Full Code Anesthesia Technique: General Anesthesia Airway Planned: Natural Airway Monitors Used: Standard Monitors
[2023-12-27 12:09] VITALS: BMI 35.6
--- NOTE | 2023-12-27 12:56 | BOWEL_PTH ---
PATIENT: Efra Holt SR LOC: [facility] U#:[id number] AGE/SX: 58/M ROOM: RE12/27/[address]: Mark Quevedo MD : [id number] BED: DIS: 12/27/2023 SPEC #: [id number] RECD: 12/27/23 17:05 STATUS: ANGEL LUIS REQ #: [id number] THEO: 12/27/23 12:[address]: Mark Quevedo DEPT: Surgical Specimen RECD BY: Sonia Quinteros ENTERED: 12/27/23 17:05 SP TYPE: Bowel OTHR DR: Lizbeth Li Tissues: 1 - BIOPSY BOWEL Procedures: GROSS AND MICRO LEVEL 4 Comments: [id number]
[2023-12-27 13:03] VITALS: BP 111/84; PULSE 70; RESP 16; TEMP 36.2; O2SAT 94
[2023-12-27 13:25] VITALS: BP 117/82; PULSE 63; RESP 16; TEMP 36.3; O2SAT 97
--- NOTE | 2023-12-27 13:39 | W.ANESPOSTOP ---
Postoperative Evaluation Date, Time and Location Date Performed: 12/27/23 Time Performed: 13:07 Patient Location: Day Surgery Unit Vital Signs Most Recent Imported Vital Signs: Most Recent Vital Signs Temp Pulse Resp BP Pulse Ox 36.3 C L 63 16 117/82 97 12/27/23 13:25 12/27/23 13:25 12/27/23 13:25 12/27/23 13:25 12/27/23 13:25 Pain Score Most Recent Pain Score: Most Recent Pain Score Pain Level 0 12/27/23 13:25 Assessment Mental Status: Awake (Alert & Oriented to Patient Baseline) Airway and Respiratory Function: Patent airway with normal (patient baseline) respiratory exam Cardiovascular Function: Hemodynamically Stable Hydration Status: Adequately Hydrated Nausea & Vomiting: No Nausea or Vomiting Pain: Pt. Denies Any Pain Peripheral Nerve Block: Patient did not receive a nerve block
== END 2023-12-27 13:51 | disposition home or self-care (01) ==
LOC: SUR 10:40
PROVIDERS: PCP Nurse Practitioner Adult Health; Visit Provider Surgery
PROC: 0DJD8ZZ Inspection of Lower Intestinal Tract, Via Natural or Artificial Opening Endoscopic (ICD-10-PCS; CPT 45378; principal; 2023-12-27 12:00)
DX: Z12.11 Encounter for screening for malignant neoplasm of colon (principal); D12.8 Benign neoplasm of rectum; Z80.0 Family history of malignant neoplasm of digestive organs
CPT/HCPCS: 45380; 88305; J2704

== ENCOUNTER 2024-02-07 09:46 | Outpatient (RCR) | payer OTHER, SELFPAY ==
[2024-01-07 00:03] VITALS: BP 145/88; PULSE 74; RESP 19; TEMP 36.4
[2024-02-07 08:00] VITALS: BP 129/77; PULSE 83; RESP 18; TEMP 36.6; O2SAT 96
[2024-02-07] MEDS: Normal Saline Flush 10 ML SYR IVP (08:05)
[2024-02-07] MEDS: inFLIXimab 600 MG in Normal Saline 250 ML 125 MG IVPB (08:05)
[2024-02-07 08:45] VITALS: BP 137/79; PULSE 83; RESP 17; TEMP 37; O2SAT 96
[2024-02-07 09:17] VITALS: BP 127/78; PULSE 68; RESP 18; TEMP 36.8; O2SAT 99
[2024-02-07 09:50] VITALS: BP 122/77; PULSE 69; RESP 18; TEMP 36.9; O2SAT 95
== END 2024-03-07 23:59 | disposition home or self-care (01) ==
LOC: INF 09:46
PROVIDERS: PCP Nurse Practitioner Adult Health; Visit Provider Family Medicine
DX: L40.9 Psoriasis, unspecified (principal)
CPT/HCPCS: 96365; 96366; J1745

== ENCOUNTER 2024-03-16 11:25 | Day surgery (SDC) | payer OTHER, SELFPAY ==
[2024-03-16] VITALS (20 sets, daily range): BP systolic 125–156; BP diastolic 76–95; PULSE 59–78; RESP 8–24; TEMP 35.9–37; O2SAT 91–99; BMI 35.8
--- NOTE | 2024-03-16 11:31 | PDOC.DSDIS_ITS ---
Date of service: 03/16/24 Discharge Plan Disposition Patient Disposition: Home Condition: Stable Discharge Details Attending Provider: Don Cole Primary Care Provider: Lizbeth Li Home Meds and New Rx's Prescriptions: New oxycodone 5 mg tablet 5 - 10 mg PO Q4H PRN (Reason: Moderate to severe pain) Qty: 18 0RF naproxen 250 mg tablet 250 - 500 mg PO BID PRN (Reason: Moderate pain) Qty: 40 0RF Continued sildenafil 100 mg tablet 100 mg PO DAILY PRN Rx Instructions: administer 30 minutes to 4 hours before activity sodium chloride 0.65 % aerosol,spray 2 spray intranasal QID PRN nortriptyline 50 mg capsule 150 mg PO QHS insulin glargine 100 unit/mL cartridge 60 unit SUBCUT HS amlodipine-benazepril 10-20 mg Capsule 1 cap PO DAILY buspirone 5 mg tablet 15 mg PO BID metformin 1,000 mg tablet 1,000 mg PO BID metoprolol tartrate 25 mg tablet 50 mg PO BID trazodone 50 mg tablet 75 mg PO HS omeprazole 20 mg Capsule,Delayed Release(Dr/Ec) 20 mg PO DAILY bupropion HCl 300 mg tablet extended release 24 hr 300 mg PO DAILY Jardiance 25 mg tablet 25 mg PO DAILY Discharge Instructions Additional Instructions: Surgery: Right shoulder arthroscopy with biceps tenodesis, extensive debridement, and subacromial decompression; Significant glenoid chondromalacia Activity: You should gradually increase range of motion motion and use of your shoulder. You may use your shoulder for all regular activities while protecting biceps repair. Avoid any weighted elbow flexion or resisted supination for 6-8 weeks. No heavy lifting, reaching overhead, or lifting away from body for approximately 2-3 months. You may use the sling whenever you are out of the house for a few weeks. At home it is best to remove the sling and rest the arm on a pillow at your side or support the operative side with your other hand. A physical therapy prescription will be sent electronically to start in about 3 weeks. Prescriptions: Naproxen 250 mg take 1-2 every 12 hours with a meal as needed for moderate pain Oxycodone 5 mg take 1-2 every 4-6 hours as needed for severe pain You may use [id number] Tylenol (acetaminophen) as needed for mild pain. These pain medications may be taken all at once or in different combinations as needed. Also, recommend Colace (docusate) as a stool softener as surgery and pain medicine cause constipation. You may try dwxt-kuv-frghmvx diphenhydramine (Benadryl) 25-50 mg nightly as a sleep aid Dressings: Remove shoulder bandage after 3 days. Leave the sticky Steri-Strips in place until they fall off or remove them after you shower. Cover the incisions with Band-Aids or leave them open to air. You may shower after 5 days. Follow-up: 10-[address] Cole You may take off the leg compression stockings this evening at home. You may also leave them on a few days longer if you have a history of leg swelling or edema. Let us know right away if you develop any redness, drainage, fevers, chest pain, or trouble breathing. Do not drink alcohol or drive for at least 24 hours after anesthesia. Please call the office during business hours with any questions or concerns. Stand Alone Forms: Anesthesia Discharge Inst., Lisbeth.Nerve Block Instructions, Shelley Dukes ([facility]) Referrals: Don Cole MD [ [facility] STAFF PHYSICIAN] - 03/29/24 10:00 am Discharge Orders Discharge Orders: Discharge Order (Routine); Ordered 03/16/24 Ordered By: Rodrigo Echeverria DS: Diagnosis Discharge Diagnosis (1) Superior labrum nweesklr-sy-bytxppjqv (SLAP) tear of right shoulder: Status: Acute (2) Rotator cuff tear, right: Status: Acute (3) Chondromalacia, right shoulder: Status: Acute
[2024-03-16] MEDS: Lactated Ringers 1,000 ML 30 ML IV (12:02)
--- NOTE | 2024-03-16 12:33 | W.ANESPRE ---
General Info Date of Service Date Performed: 03/16/24 Height: 6 ft Weight: 119.7 kg Body Mass Index (BMI): 35.8 Surgical Procedure: Operation Date: 03/16/24 13:10 Proposed Procedure Side Surgeon p Shoulder Rotator Cuff Arthroscopic w/Extensive Debridement, Biceps Tenodesis, Subacromial Decompression Right Don Cole MD Meds Allergies and Home Medications Allergies Allergy/AdvReac Type Severity Reaction Status Date / Time adalimumab (From Humira) Allergy Unknown dyspnea Verified 03/16/24 11:51 diclofenac Allergy Swelling/Ed Verified 03/16/24 11:51 rena gabapentin Allergy Swelling/Ed Verified 03/16/24 11:51 rena Home Medication ?Medication ?Instructions ?Recorded buspirone 5 mg tablet 15 mg PO BID 09/26/21 metformin 1,000 mg tablet 1,000 mg PO BID 09/26/21 metoprolol tartrate 25 mg tablet 50 mg PO BID 09/26/21 omeprazole 20 mg capsule,delayed 20 mg PO DAILY 09/26/21 release trazodone 50 mg tablet 75 mg PO HS 09/26/21 amlodipine 10 mg-benazepril 20 mg 1 cap PO DAILY 06/12/22 capsule bupropion HCl 300 mg 24 hr tablet, 300 mg PO DAILY 10/23/22 extended release nortriptyline 50 mg capsule 150 mg PO QHS 11/11/22 sildenafil 100 mg tablet 100 mg PO DAILY PRN 11/11/22 sodium chloride 0.65 % nasal spray 2 spray intranasal QID PRN 11/11/22 aerosol insulin glargine 100 unit/mL 60 unit subcut HS 11/01/23 subcutaneous cartridge empagliflozin 25 mg tablet 25 mg PO DAILY 12/24/23 (Jardiance) naproxen 250 mg tablet 250 - 500 mg (1 - 2 x 250 mg) PO 03/16/24 BID PRN Moderate pain #40 tabs oxycodone 5 mg tablet 5 - 10 mg (1 - 2 x 5 mg) PO Q4H 03/16/24 PRN Moderate to severe pain #18 tabs Current Visit Medications: Current Medications Generic Name Dose Route Start Last Admin Trade Name Freq PRN Reason Stop Dose Admin Droperidol 0.625 mg 03/16/24 10:26 Droperidol 2.5 Mg/Ml Vial IVP 04/15/24 10:25 DIRECTED PRN Ephedrine Sulfate 0 mg 03/16/24 10:26 Ephedrine 25 Mg/5 Ml Syringe IVP 04/15/24 10:25 DIRECTED PRN Fentanyl 0 mcg 03/16/24 10:26 Fentanyl 100 Mcg/2 Ml Vial IVP 04/15/24 10:25 DIRECTED PRN Hydromorphone HCl 0 mg 03/16/24 10:26 Hydromorphone 1 Mg/Ml Syr IVP 04/15/24 10:25 DIRECTED PRN Ringer's Solution 1,000 mls @ 30 mls/hr 03/16/24 06:00 03/16/24 12:02 IV 03/16/24 23:59 30 mls/hr INFUSION ASHELY Administration Cefazolin Sodium 3,000 mg/ 100 mls @ 200 mls/hr 03/16/24 06:00 Sodium Chloride IV 03/16/24 23:59 PREOP ASHELY Tranexamic Acid/Sodium Chloride 1,000 mg in 100 mls @ 600 mls/hr 03/16/24 06:00 IVPB 03/16/24 23:59 PREOP ASHELY IV Miscellaneous Supplies 1 each 03/16/24 06:00 Iv Access IV 03/16/24 23:59 DIRECTED ASHELY Naloxone HCl 0 mg 03/16/24 10:26 Naloxone 0.4 Mg/Ml Vial IVP 04/15/24 10:25 PRN PRN Oxycodone HCl 0 mg 03/16/24 11:36 Oxycodone 5 Mg Tab PO 04/15/24 11:35 Q3H PRN PRN Pain Sodium Chloride 0 ml 03/16/24 06:00 Normal Saline Flush 10 Ml Syr IV 03/16/24 23:59 PRN PRN Sodium Chloride 0 ml 03/16/24 06:00 Normal Saline 10 Ml Vial IJ 03/16/24 23:59 DIRECTED PRN Sterile Water 0 ml 03/16/24 06:00 Water,Injection,Sterile 10 Ml Vial IJ 03/16/24 23:59 DIRECTED PRN PFSH Active Problems Active Problems: Problem Status Onset Code Chondromalacia, right shoulder Acute M94.211 Superior labrum pncqlawr-it-snltwvtip (SLAP) tear of right shoulder Acute S43.431A Rotator cuff tear, right Acute M75.101 Cirrhosis Acute K74.60 Cervical disc disorder with radiculopathy Acute M50.10 Spondylosis Acute M47.9 Spinal stenosis of thoracic region Acute M48.04 Steatohepatitis, non-alcoholic Acute K75.81 Family history of GI malignancy Acute Z80.0 Medical History Medical History Tubular adenoma of colon (~12/2023) Encounter for screening colonoscopy Tinnitus Hearing loss Tobacco use disorder [place] (obstructive sleep apnea) Panic disorder without agoraphobia Rotator cuff rupture Hypertension Lateral epicondylitis Lumbar radiculopathy Obesity Pain in right arm Kidney stones Psoriasis Diabetes mellitus Surgical History Surgical History History of elbow surgery History of esophagogastroduodenoscopy H/O arthroscopic knee surgery Right H/O arthroscopy of shoulder Bilateral H/O colonoscopy (~12/2023) Hx of fasciotomy right arm Tobacco Smoking/Tobacco Use Status: Former Tobacco Use Alcohol Alcohol Intake: current Alcohol intake frequency: holidays/special occasions only Alcohol type: beer Substance Use Substance use: Never Substance use type: does not use Vital Signs and Lab Results Vital Signs Most Recent Vital Signs in EMR: Most Recent Vital Signs Temp Pulse Resp BP Pulse Ox 35.9 C L 69 17 156/95 H 95 03/16/24 11:35 03/16/24 11:35 03/16/24 11:35 03/16/24 11:35 03/16/24 11:35 Point of Care Results Point of Care Results: Finger Stick Blood Glucose 115 03/16/24 10:00 Lab Results Blood Type / Crossmatch: No Data to Display Complete Blood Count: No Data to Display Complete Metabolic Panel: No Data to Display Liver Function Panel: No Data to Display Coagulation Panel: No Data to Display Cardiac Panel: No Data to Display Arterial Blood Gas: No Data to Display Venous Blood Gas: No Data to Display Pancreas Panel: No Data to Display Thyroid Panel: No Data to Display Infectious Disease: No Data to Display Blood Cultures: No Data to Display Toxicology Panel: No Data to Display Anesthesia Assessment and Plan Anesthesia History Personal History: Delayed Emergence (Slow to wake up) Family History: No Family History of Anesthesia Complications Exercise Tolerance Exercise Tolerance: Metabolic Equivalents>4 Pertinent Negatives Pertinent Negatives: No Symptoms of GERD Cardiac & Pulmonary Exam Cardiac Exam: Normal S1/S2 Heart Sounds Pulmonary Exam: Clear Bilateral Breath Sounds Implantable Cardiac Device Does patient have a Pacemaker or an ICD?: No Airway Exam Known Difficult Airway: No Mallampati Class: 2 Mouth Opening: Normal (> 3cm) Thyromental Distance: Greater than 3 cm Neck Range of Motion: Full ROM Neck Circumference: Normal Teeth Condition: Normal Dentition (right front tooth chipped) ASA Classification ASA Score: ASA 2 Emergency Case?: No NPO Status NPO Status: NPO Clears >2 hours, Solids >8 hours Anesthesia Plan Resuscitation Status: Full Code Anesthesia Technique: General Anesthesia Airway Planned: Endotracheal Tube Pain Management: Surgeon and patient request nerve block Monitors Used: Standard Monitors Preoperative Comments:: Pt had a crush injury of right arm in 2004. Pt does have slight sensory deficits of right thumb, pointer and middle finger. Pt describes possible slight motor deficit of right hand but not appreciated during exam. Pt given risk/benefits of nerve block give prior injury and he would like to proceed with Interscalene Plexus Block. Yazmin Valdivia, [employer]
--- NOTE | 2024-03-16 12:39 | ROE_ITS ---
Operative Note Operative Note PRE-OP DIAGNOSIS: Right: 1. Rotator cuff tear 2. Chronic SLAP tear 3. Chronic HAGL 4. Bursitis POST-OP DIAGNOSIS: same PROCEDURE: Right: 1. Arthroscopic biceps tenodesis, CPT# 54904. This involved arthroscopically suturing and reattaching the long head of the biceps tendon to the proximal humerus at the superior margin of the bicipital groove with a screw at the correct tension. 2. Extensive debridement, CPT# 61926. This involved using arthroscopic hand instruments, power instruments, and radiofrequency instruments to release the long head of the biceps tendon and debride areas of labral tearing, SLAP tearing, removed prior permanent suture material, rotator interval synovitis, and chondromalacia about the biceps groove and central glenoid working within the glenohumeral joint anteriorly, superiorly and posteriorly. 3. Subacromial decompression with partial acromioplasty, CPT# 31297. This involved using arthroscopic power instruments and a radiofrequency wand to complete a bursectomy and smooth the undersurface of the acromion. The automotive parts counter assistant was medically required in order to help assist in techniques above, which require positioning the arm, holding the arthroscope, and manipulating multiple instruments and sutures at the same time. This cannot be done without the help of an experienced automotive parts counter assistant. SURGEON: Don Cole SUPERVISOR TYPE DISK QUALITY CONTROL: Rodrigo Echeverria ANESTHESIA TYPE: Local By Surgeon, General LMA/ETT and Primary Nerve Block Refer to Anesthesia Record ESTIMATED BLOOD LOSS: 5 PATHOLOGY: none sent COMPLICATIONS: None Patient was transported to: PACU Patient's condition: stable Implants: Arthrex: 4.75mm SwiveLocks x 1 Indications: The patient was diagnosed with the above conditions and appropriately indicated for surgical intervention. Please see complete medical record for details. Findings: Exam under anesthesia: Full range of motion, no instability Glenohumeral joint: Significant chronic pathology. Chronic?appearing extensive labral abnormalities: Worst anteriorly with a permanent retained suture loop and knot about MGHL tissue, but not really attached to the glenoid labrum. Significant labral fraying from anterior inferior through anteriorly with highly deficient labrum anteriorly centrally continuing through anterior to posterior superior as part of the SLAP tear. Significant high-grade central nearly full- thickness glenoid chondromalacia with loose irregular cartilage edges. Moderate bicipital groove humeral head chondromalacia. Intact biceps tendon. Overall largely intact subscapularis with some subcoracoid and anterior recess adhesions and capsulitis. Intact articular rotator cuff. Subacromial space: Moderate bursitis. No significant undersurface acromial bone spurring or impingement from hypertrophic AC joint. Moderate central lateral supraspinatus injection, but no structural tearing appreciated. Procedure Description: In the operating room, general anesthesia was induced. Bilateral shoulders were examined. The patient was positioned in the beachchair position. All bony prominences were well-padded. Preoperative antibiotics were administered. The shoulder was prepped and draped in the usual sterile fashion. The correct patient, procedure, and side of the procedure were all verified prior to incision. Starting through the posterior portal a standard complete diagnostic arthroscopy was performed of the glenohumeral joint including inspection of the long head of the biceps, anterior and superior labrum, subscapularis tendon, supraspinatus and infraspinatus tendons, and axillary recess. The glenoid and humeral head cartilage as well as the posterior labrum were inspected from an anterior viewing portal. Significant findings and interventions noted above. The extensive glenoid pathology all looked rather chronic and likely relates to sequelae from old injury 20 years ago. The central glenoid cartilage was nearly full-thickness defect with loose edges and flaps especially inferiorly that were trimmed with the torpedo shaver. Anteriorly, the loose suture was removed with the cuff grasper. The [facility] L was debrided as well as the anterior inferior central to superior labral of significant frayed and chronically abnormal tissue. Subscapularis was freed from capsulitis and was largely intact without really any intrasubstance tearing or tearing from the tuberosity that was amenable to repair. The labral tear continued into the SLAP tear which was contoured by the biceps anchor. An all-arthroscopic suprapectoral biceps tenodesis was performed through an anterior portal using a Loop N Tack method with a SutureTape FiberLink cinched around and through the tendon. The biceps was tenotomized from the labrum and fixated with a suture anchor at the superior margin of the bicipital groove. The knotless repair suture from this anchor was then shuttled around the tendon stump, back through the anchor mechanism, and used to tension the tendon down to the bone and anchor adding additional secured to the repair. Direct arm compression and motion was used to confirm stable secure fixation. Starting through the posterior portal, the arthroscope was directed into the subacromial space. A lateral 50 yard line lateral portal was created and Tawanna cannula inserted to help retract tissues laterally and carefully examined the rotator cuff. A combination of power instruments and a radiofrequency ablator were used to debride bursitis anteriorly, posteriorly, and laterally as well as expose and smooth bone spurring on the undersurface of the acromion. The coracoacromial ligament was partially released. The bursectomy was completed viewing laterally and working from posteriorly and the rotator cuff was thoroughly inspected with findings noted above. There was a slight softer area of the rotator cuff about 5 x 5 mm lateral to the area of worst injection, but on probing and attempted elevation it really did not probe to any structural significance. Decision was made to omit any takedown and repair of what was a largely healthy?appearing articular and bursal rotator cuff on arthroscopic exam. The shoulder was drained of arthroscopic fluid. All portal sites were copiously irrigated. These incisions were closed using 3-0 Monocryl in a buried fashion and then covered with Mastisol, Steri-Strips, Xeroform, dry gauze, and ABDs. The dressings were covered and secured with Medipore tape. The operative extremity was placed into a sling for immobilization. The patient awoke from anesthesia without complication and was transferred to the recovery room in a stable condition. Unfortunately, the significant glenoid cartilage loss would likely be associated with progressive post as traumatic glenohumeral arthritis. Patient is high?risk to require additional treatments for shoulder pain and dysfunction including image?guided steroid injection and potentially future shoulder replacement surgery. Date of Procedure: 03/16/24
[2024-03-16] MEDS: ceFAZolin 3,000 MG in Normal Saline 100 ML 200 MG IV (13:20)
[2024-03-16] MEDS: TRANEXAMIC ACID/SOD. CHL. 1,000 MG/100 ML BAG 600 MG IVPB (13:30)
--- NOTE | 2024-03-16 13:57 | W.ANESNERVE ---
Nerve Block Single Injection Procedure Date and Time Date Performed: 03/16/24 Procedure Start: 12:48 Location Where Procedure Performed Procedure Location: Day Surgery Unit Reason Performed: Postoperative Analgesia Requesting Provider: Don Cole Timeout Performed Timeout Performed: Yes Monitoring Used ECG, Blood Pressure, SpO2 and See EMR for corresponding vital signs Sterility Sterility: Hand Hygiene, Surgical Cap, Surgical Mask, Sterile Gloves, Sterile Drape/Sheet, Eye Protection and Chlorhexidine Sedation Given During Procedure Sedation Given (Indicate Dose Given): Versed IV Dose:: 3mg IVP Patient Mental Status Patient Mental Status: Sedate with meaningful communication Nerve Block 1st Nerve Block: Laterality: Right Block Type: Interscalene Ultrasound Image Saved?: Yes Needle / Catheter Used: 100mm SonoPlex II Local Anesthetic Bolus (Indicate Dose Given): Lidocaine used for local infiltration of skin, Bupivacaine 0.5% Dose:: 0.5%/10cc (50mg) and Exparel Dose:: 1.33%/10cc (133mg) Additives (Indicate Dose Given): Epinephrine to make 1:400,000 (2.5mcg/ml) Dose:: 50mcg and Decadron Dose:: 10mg PF Ultrasound: Sterile probe cover and gel used Nerve Stimulator: Not Used Paresthesia: None Procedure Tolerated: No Complications and Patient tolerated well Procedure Outcome: Successful Performed By: Amrit Valdivia
[2024-03-16] MEDS: Bupivacaine 0.25% Pres-Free W/EPI 30 ML VIAL (14:00)
[2024-03-16] MEDS: EPINEPHrine 10 MG/10 ML ML (15:00)
--- NOTE | 2024-03-16 15:34 | W.ANESPOSTOP ---
Postoperative Evaluation Date, Time and Location Date Performed: 03/16/24 Time Performed: 15:34 Patient Location: PACU Vital Signs Most Recent Imported Vital Signs: Most Recent Vital Signs Temp Pulse Resp BP Pulse Ox 36.4 C L 59 L 17 126/77 96 03/16/24 15:25 03/16/24 15:25 03/16/24 15:26 03/16/24 15:25 03/16/24 15:26 Pain Score Most Recent Pain Score: Most Recent Pain Score Pain Level 0 03/16/24 15:25 Assessment Mental Status: Awake (Alert & Oriented to Patient Baseline) Airway and Respiratory Function: Patent airway with normal (patient baseline) respiratory exam Cardiovascular Function: Hemodynamically Stable Hydration Status: Adequately Hydrated Nausea & Vomiting: No Nausea or Vomiting Pain: Pain is tolerable per patient Peripheral Nerve Block: Regional nerve block not resolved at time of post operative discharge
[2024-03-16] MEDS: oxyCODONE 5 MG TAB PO ×2 (15:58→16:39)
== END 2024-03-16 17:17 | disposition home or self-care (01) ==
PROVIDERS: PCP Nurse Practitioner Adult Health; Visit Provider Student in an Organized Health Care Education/Training Program
PROC: (CPT 29827; principal; 2024-03-16 13:00)
DX: S43.431A Superior glenoid labrum lesion of right shoulder, initial encounter (principal); M75.101 Unspecified rotator cuff tear or rupture of right shoulder, not specified as traumatic; M94.211 Chondromalacia, right shoulder; X58.XXXA Exposure to other specified factors, initial encounter; M75.51 Bursitis of right shoulder; M24.411 Recurrent dislocation, right shoulder
CPT/HCPCS: 29828; 29823; 29826; 64415; J0131; J0171; J0665; J0666; J0690; J1100; J1885; J2250; J2405; J2704

== ENCOUNTER 2024-04-03 02:43 | Outpatient (RCR) | payer OTHER, SELFPAY ==
[2024-03-08 00:02] VITALS: BP 145/88; PULSE 74; RESP 19; TEMP 36.4
[2024-04-03 08:25] VITALS: BP 139/80; PULSE 81; RESP 16; TEMP 36; O2SAT 97
[2024-04-03] MEDS: inFLIXimab 600 MG in Normal Saline 250 ML 125 MG IVPB (08:27)
[2024-04-03] MEDS: Normal Saline Flush 10 ML SYR IVP (08:27)
[2024-04-03 09:00] VITALS: BP 143/78; PULSE 81; RESP 16; TEMP 36.4; O2SAT 95
[2024-04-03 09:30] VITALS: BP 126/79; PULSE 78; RESP 16; TEMP 36.3; O2SAT 95
[2024-04-03 10:00] VITALS: BP 123/77; PULSE 78; RESP 16; TEMP 36.3; O2SAT 95
[2024-04-03 10:35] VITALS: BP 128/82; PULSE 73; RESP 16; TEMP 36; O2SAT 96
== END 2024-04-07 23:59 | disposition home or self-care (01) ==
LOC: INF 02:43
PROVIDERS: PCP Nurse Practitioner Adult Health; Visit Provider Family Medicine
DX: L40.9 Psoriasis, unspecified (principal)
CPT/HCPCS: 96365; 96366; J1745

== ENCOUNTER 2024-04-18 11:47 | Outpatient (CLI) | payer OTHER, SELFPAY ==
--- NOTE | 2024-04-18 15:55 | DI.MRI_ITS ---
Exam(s) MR UPPER JOINT RT WO EXAM: MR UPPER JOINT RT WO CLINICAL HISTORY: SURGERY 03/16, RECENT FALL, PROB RUPTURE, SLAP TEAR RT SHOULDER. TECHNIQUE: Multiplanar multisequence MRI was performed. COMPARISON: None. FINDINGS: A larger than normal field of view was employed from or coverage of the biceps tendon. The images ar e mildly degraded motion BONES: There is no fracture or contusion pattern. JOINTS:The acromioclavicular joint shows mild spurring. The glenohumeral joint is normal. TENDONS: Supraspinatus: Unremarkable. Infraspinatus: Unremarkable. Subscapularis: Unremarkable. Teres Minor: Unremarkable. Biceps and Rogers: There is abnormal high signal and blunting of the superior labrum and biceps ancho r. The long head of the biceps tendon is not visualized in the upper portion of the arm and is found to be of completely torn and retracted at the distal 3rd of the upper arm. The short head of the bi ceps tendon is intact. MUSCLES: Unremarkable. GLENOID LABRUM: Blunting of the superior labrum and biceps anchor. SOFT TISSUES: Unremarkable. BURSAE: Subacromial and subdeltoid bursae shows small amount of fluid. Small amount of fluid in the subcoracoid bursa.. IMPRESSION: Rupture of the biceps tendon with retraction. Abnormal high signal in the superior labrum and biceps anchor. DATA REPOSITORY:
== END 2024-04-18 12:07 ==
LOC: DI 11:48
PROVIDERS: PCP Nurse Practitioner Adult Health; Visit Provider Student in an Organized Health Care Education/Training Program
DX: S46.211A Strain of muscle, fascia and tendon of other parts of biceps, right arm, initial encounter (principal); W19.XXXA Unspecified fall, initial encounter
CPT/HCPCS: 73221

== ENCOUNTER 2024-04-20 11:46 | Day surgery (SDC) | payer OTHER, SELFPAY ==
[2024-04-20] VITALS (45 sets, daily range): BP systolic 124–151; BP diastolic 62–87; PULSE 69–90; RESP 10–24; TEMP 36.2–36.6; O2SAT 88–97; BMI 34.7
--- NOTE | 2024-04-20 11:03 | ROE_ITS ---
Operative Note Operative Note PRE-OP DIAGNOSIS: Right: 1. Recent shoulder arthroscopy with traumatically failed arthroscopic biceps tenodesis POST-OP DIAGNOSIS: same PROCEDURE: Right: 1. Limited debridement, CPT #94447. This involved arthroscopically inspecting the glenohumeral joint and removing the FiberLink and simple knotless repair permanent sutures from the superior bicipital groove suture anchor. 2. Open biceps tenodesis, CPT# 45288. This involved reattaching the long head of the biceps tendon to the proximal humerus in the sub-pectoral area of the bicipital groove. The entry level marketing assistant was medically required in order to help assist in techniques above , which require positioning the arm, holding the arthroscope, and manipulating multiple instruments and sutures at the same time. This cannot be done without the help of an experienced entry level marketing assistant. SURGEON: Don Cole RN NEW GRAD: Eri Gaston ANESTHESIA TYPE: Local By Surgeon, General LMA/ETT and Primary Nerve Block Refer to Anesthesia Record ESTIMATED BLOOD LOSS: 5 PATHOLOGY: none sent COMPLICATIONS: None Patient was transported to: PACU Patient's condition: stable Implants: Arthrex Proximal biceps button Indications: The patient was diagnosed with the above conditions and appropriately indicated for surgical intervention. Please see complete medical record for details. Findings: Exam under anesthesia: Full range of motion, no instability. Obvious retracted proximal biceps rupture. Glenohumeral joint: Absent arthroscopic tenodesis with permanent suture material present. The knotless repair loop was still intact. The link suture was withdrawn down the bicipital groove. Subacromial space: Deferred Procedure Description: In the operating room, general anesthesia was induced. Bilateral shoulders were examined. The patient was positioned in the beachchair position. All bony prominences were well-padded. Preoperative antibiotics were administered. The shoulder was prepped and draped in the usual sterile fashion. The correct patient, procedure, and side of the procedure were all verified prior to incision. The previously used anterior posterior and lateral portals were preinjected with 0.25% Vivacaine containing epinephrine 10 cc. Additional 20 cc was infiltrated about the anterior mid to proximal arm over the planned site for open biceps repair. Starting through the previous posterior portal, diagnostic arthroscopy of the glenohumeral joint was performed. The biceps tendon was clearly absent from the anterior shoulder where it had been secured to a SwiveLock anchor. The knotless repair suture could be seen still looped small configuration as well as a longer FiberLink heading down the bicipital groove. The previous anterior portal was then reopened and the sutures grasps. The FiberLink was withdrawn into the glenohumeral joint a few centimeters corresponding to the length that had been used to secure the tendon initially. It was removed using a Sherly clamp. The loop stitch was then removed using a pituitary rongeur. The suture anchor site was then lightly abraded some minor permanent suture material cut more flush using the mechanical shaver and the anterior rotator interval and shoulder debrided lightly of minor synovitis. There were no other new injuries. Shoulder was irrigated and then drained of arthroscopic fluid. A medium sized incision was then made in the proximal forearm from the pectoralis major tendon distally as needed to the palpable retracted biceps tendon. It was localized coiled up deeply retracted and brought out for inspection. There was no suture material retained on it. The entire tendon length was intact. Using a fiber loop suture the tendon was prepped from the musculotendinous junction a few centimeters proximal. The excess tendon was amputated. The correct location for sub-pectoral fixation was localized, prepped with a rasp, and then drilled with a 3.2 mm drill pin in a unicortical fashion. The free suture ends were then passed through the unicortical button implant. The drill pin was removed and the implant was placed into the humeral intramedullary canal. The button was flipped and the sutures were tensioned bringing the tendon down to bone. Tension and fixation were then tested and found to be appropriate. The suture tails were brought on either side of the tendon and then tied compressing tendon to bone. The wound was copiously irrigated with normal saline. Subcutaneous tissue was closed using 3-0 Monocryl in a buried interrupted fashion. Skin was closed using 3-0 Monocryl in a buried subcuticular running fashion. All portal sites were copiously irrigated again. These incisions were closed using 3-0 Monocryl in a buried fashion and then covered with Mastisol, Steri- Strips, Xeroform, dry gauze, and ABDs. Skin glue was applied over the biceps incision. The incision was covered with Telfa, gauze, and covered with a Tegaderm dressing. The dressings were covered and secured with Medipore tape. The operative extremity was placed into a sling for immobilization. The patient awoke from anesthesia without complication and was transferred to the recovery room in a stable condition. Date of Procedure: 04/20/24
--- NOTE | 2024-04-20 11:29 | W.PM.DSUDISC ---
Date of service: 04/20/24 Discharge Plan Disposition Patient Disposition: Home Condition: Stable Discharge Details Attending Provider: Don Cole Primary Care Provider: Lizbeth Li Home Meds and New Rx's Prescriptions: No Action alprazolam [Xanax] 0.5 mg tablet 0.5 mg PO ONCE PRN (Reason: Claustrophobia) Qty: 2 0RF Rx Instructions: Take 1 60 minutes prior to MRI. May take an additional 1 if still anxious 30 minutes prior to MRI. sildenafil 100 mg tablet 100 mg PO DAILY PRN Rx Instructions: administer 30 minutes to 4 hours before activity sodium chloride 0.65 % aerosol,spray 2 spray intranasal QID PRN nortriptyline 50 mg capsule 150 mg PO QHS insulin glargine 100 unit/mL cartridge 60 unit SUBCUT HS amlodipine-benazepril 10-20 mg Capsule 1 cap PO DAILY buspirone 5 mg tablet 15 mg PO BID metformin 1,000 mg tablet 1,000 mg PO BID metoprolol tartrate 25 mg tablet 50 mg PO BID trazodone 50 mg tablet 75 mg PO HS omeprazole 20 mg Capsule,Delayed Release(Dr/Ec) 20 mg PO DAILY bupropion HCl 300 mg tablet extended release 24 hr 300 mg PO DAILY Jardiance 25 mg tablet 25 mg PO DAILY naproxen 250 mg tablet 250 - 500 mg PO BID PRN (Reason: Moderate pain) Qty: 40 0RF Discharge Instructions Additional Instructions: Surgery: Right shoulder arthroscopy with [rotator cuff repair, biceps tenodesis, extensive debridement, and subacromial decompression.] Activity: [For 6 weeks,] you should keep your arm at your side in a neutral position at all times except for physical therapy. Do not try to lift or raise your arm using your own muscles. You should use the sling whenever you are out of the house. At home it is best to remove the sling and rest the arm on a pillow at your side or support the operative side with your other hand. You may allow the arm to dangle at your side. A physical therapy prescription will be sent electronically to begin in about 3 weeks. [You should gradually increase range of motion motion and use of your shoulder. You may use your shoulder for all regular activities while protecting biceps repair. Avoid any weighted elbow flexion or resisted supination for 6-8 weeks. No heavy lifting, reaching overhead, or lifting away from body for approximately 2-3 months. You may use the sling whenever you are out of the house for a few weeks. At home it is best to remove the sling and rest the arm on a pillow at your side or support the operative side with your other hand. A physical therapy prescription will be sent electronically to start in about 2 weeks.] Prescriptions: Naproxen 250 mg take 1-2 every 12 hours with a meal as needed for moderate pain Oxycodone 5 mg take 1-2 every 4-6 hours as needed for severe pain You may use [id number] Tylenol (acetaminophen) as needed for mild pain. These pain medications may be taken all at once or in different combinations as needed. Also, recommend Colace (docusate) as a stool softener as surgery and pain medicine cause constipation. You may try [id number] diphenhydramine (Benadryl) 25-50 mg nightly as a sleep aid Dressings: Remove shoulder bandage after 3 days. Leave the sticky Steri-Strips in place until they fall off or remove them after you shower. Cover the incisions with Band-Aids or leave them open to air. [The biceps bandage (inside upper arm) is glued on separately. You may leave this one on a few days longer if it is difficult to remove. There is also glue underneath this bandage that can be left in place until it peels off.] You may shower after 5 days. Follow-up: 10-[address] Cole You may take off the leg compression stockings this evening at home. You may also leave them on a few days longer if you have a history of leg swelling or edema. Let us know right away if you develop any redness, drainage, fevers, chest pain, or trouble breathing. Do not drink alcohol or drive for at least 24 hours after anesthesia. Please call the office during business hours with any questions or concerns. Discharge Orders Discharge Orders: Discharge Order (Routine); Ordered 04/20/24 Ordered By: Rodrigo Echeverria DS: Diagnosis Discharge Diagnosis (1) Rupture of right proximal biceps tendon: Status: Acute (2) Chondromalacia, right shoulder: Status: Acute (3) Superior labrum [id number] (SLAP) tear of right shoulder: Status: Acute (4) Rotator cuff tear, right: Status: Acute
--- NOTE | 2024-04-20 11:56 | W.PM.DSUDISC ---
Date of service: 04/20/24 Discharge Plan Disposition Patient Disposition: Home Condition: Stable Discharge Details Attending Provider: Don Cole Primary Care Provider: Lizbeth Li Home Meds and New Rx's Prescriptions: New naproxen 250 mg tablet 250 - 500 mg PO BID PRN (Reason: Moderate pain) Qty: 40 0RF oxycodone 5 mg tablet 5 - 10 mg PO Q4H PRN (Reason: Moderate to severe pain) Qty: 18 0RF Continued alprazolam [Xanax] 0.5 mg tablet 0.5 mg PO ONCE PRN (Reason: Claustrophobia) Qty: 2 0RF Rx Instructions: Take 1 60 minutes prior to MRI. May take an additional 1 if still anxious 30 minutes prior to MRI. sildenafil 100 mg tablet 100 mg PO DAILY PRN Rx Instructions: administer 30 minutes to 4 hours before activity sodium chloride 0.65 % aerosol,spray 2 spray intranasal QID PRN nortriptyline 50 mg capsule 150 mg PO QHS insulin glargine 100 unit/mL cartridge 40 unit SUBCUT HS Patient Comments: 30 units 04/19/24 amlodipine-benazepril 10-20 mg Capsule 1 cap PO DAILY buspirone 5 mg tablet 15 mg PO BID metformin 1,000 mg tablet 1,000 mg PO BID metoprolol tartrate 25 mg tablet 50 mg PO BID trazodone 50 mg tablet 75 mg PO HS omeprazole 20 mg Capsule,Delayed Release(Dr/Ec) 20 mg PO DAILY bupropion HCl 300 mg tablet extended release 24 hr 300 mg PO DAILY Jardiance 25 mg tablet 25 mg PO DAILY naproxen 250 mg tablet 250 - 500 mg PO BID PRN (Reason: Moderate pain) Qty: 40 0RF No Action loratadine [Allergy Relief (loratadine)] 10 mg tablet 10 mg PO HS PRN Discharge Instructions Additional Instructions: Surgery: Right shoulder arthroscopy with limited debridement (removal permanent suture material from failed arthroscopic biceps tenodesis) and open biceps tenodesis; Right shoulder arthroscopy with biceps tenodesis, extensive debridement, and subacromial decompression 03/16/2024; Significant glenoid chondromalacia Activity: You should gradually increase range of motion motion and use of your shoulder. You may use your shoulder for all regular activities while protecting biceps repair. Avoid any weighted elbow flexion or resisted supination for 6-8 weeks. No heavy lifting, reaching overhead, or lifting away from body for approximately 2-3 months. You may use the sling whenever you are out of the house for a few weeks. At home it is best to remove the sling and rest the arm on a pillow at your side or support the operative side with your other hand. Resume physical therapy in about 3 weeks. Prescriptions: Naproxen 250 mg take 1-2 every 12 hours with a meal as needed for moderate pain Oxycodone 5 mg take 1-2 every 4-6 hours as needed for severe pain You may use wssr-joy-rwnyqfi Tylenol (acetaminophen) as needed for mild pain. These pain medications may be taken all at once or in different combinations as needed. Also, recommend Colace (docusate) as a stool softener as surgery and pain medicine cause constipation. You may try dmpv-idb-xaeqzwo diphenhydramine (Benadryl) 25-50 mg nightly as a sleep aid Dressings: Remove shoulder bandage after 3 days. Leave the sticky Steri-Strips in place until they fall off or remove them after you shower. Cover the incisions with Band-Aids or leave them open to air. The biceps bandage (inside upper arm) is glued on separately. You may leave this one on a few days longer if it is difficult to remove. There is also glue underneath this bandage that can be left in place until it peels off. You may shower after 5 days. Follow-up: 10-[address] Cole You may take off the leg compression stockings this evening at home. You may also leave them on a few days longer if you have a history of leg swelling or edema. Let us know right away if you develop any redness, drainage, fevers, chest pain, or trouble breathing. Do not drink alcohol or drive for at least 24 hours after anesthesia. Please call the office during business hours with any questions or concerns. Discharge Orders Discharge Orders: Discharge Order (Routine); Ordered 04/20/24 Ordered By: Rodrigo Echeverria DS: Diagnosis Discharge Diagnosis (1) Rupture of right proximal biceps tendon: Status: Acute (2) Chondromalacia, right shoulder: Status: Acute (3) Superior labrum twszqjuo-al-zdoznpipw (SLAP) tear of right shoulder: Status: Acute (4) Rotator cuff tear, right: Status: Acute
--- NOTE | 2024-04-20 12:39 | ANES.PREOP_ITS ---
General Info Date of Service Date Performed: 04/20/24 Height: 6 ft Weight: 116 kg Body Mass Index (BMI): 34.7 Surgical Procedure: Operation Date: 04/20/24 14:40 Proposed Procedure Side Surgeon p Shoulder Arthroscopyw/any indicated Debridement Right Don Cole MD s Shoulder Open Bicep Tenodesis Revision Don Cole MD Meds Allergies and Home Medications Allergies Allergy/AdvReac Type Severity Reaction Status Date / Time adalimumab (From Humira) Allergy Severe dyspnea Verified 04/20/24 12:18 diclofenac Allergy Severe Swelling/Ed Verified 04/20/24 12:18 rena gabapentin Allergy Severe Swelling/Ed Verified 04/20/24 12:18 rena Home Medication ?Medication ?Instructions ?Recorded buspirone 5 mg tablet 15 mg PO BID 09/26/21 metformin 1,000 mg tablet 1,000 mg PO BID 09/26/21 metoprolol tartrate 25 mg tablet 50 mg PO BID 09/26/21 omeprazole 20 mg capsule,delayed 20 mg PO DAILY 09/26/21 release trazodone 50 mg tablet 75 mg PO HS 09/26/21 amlodipine 10 mg-benazepril 20 mg 1 cap PO DAILY 06/12/22 capsule bupropion HCl 300 mg 24 hr tablet, 300 mg PO DAILY 10/23/22 extended release nortriptyline 50 mg capsule 150 mg PO QHS 11/11/22 sildenafil 100 mg tablet 100 mg PO DAILY PRN 11/11/22 sodium chloride 0.65 % nasal spray 2 spray intranasal QID PRN 11/11/22 aerosol insulin glargine 100 unit/mL 40 unit subcut HS 11/01/23 subcutaneous cartridge empagliflozin 25 mg tablet 25 mg PO DAILY 12/24/23 (Jardiance) naproxen 250 mg tablet 250 - 500 mg (1 - 2 x 250 mg) PO 03/16/24 BID PRN Moderate pain #40 tabs alprazolam 0.5 mg tablet (Xanax) 0.5 mg PO ONCE PRN Claustrophobia 04/18/24 #2 tabs loratadine 10 mg tablet (Allergy 10 mg PO HS PRN 04/20/24 Relief (loratadine)) naproxen 250 mg tablet 250 - 500 mg (1 - 2 x 250 mg) PO 04/20/24 BID PRN Moderate pain #40 tabs oxycodone 5 mg tablet 5 - 10 mg (1 - 2 x 5 mg) PO Q4H 04/20/24 PRN Moderate to severe pain #18 tabs Current Visit Medications: Current Medications Generic Name Dose Route Start Last Admin Trade Name Freq PRN Reason Stop Dose Admin Ringer's Solution 1,000 mls @ 30 mls/hr 04/20/24 06:00 IV 04/20/24 23:59 INFUSION ASHELY Cefazolin Sodium 3,000 mg/ 100 mls @ 200 mls/hr 04/20/24 06:00 Sodium Chloride IV 04/20/24 23:59 PREOP ASHELY Tranexamic Acid/Sodium Chloride 1,000 mg in 100 mls @ 600 mls/hr 04/20/24 06:00 IVPB 04/20/24 23:59 PREOP ASHELY IV Miscellaneous Supplies 1 each 04/20/24 06:00 Iv Access IV 04/20/24 23:59 DIRECTED ASHELY Oxycodone HCl 0 mg 04/20/24 11:29 Oxycodone 5 Mg Tab PO 05/20/24 11:28 Q3H PRN PRN Pain Sodium Chloride 0 ml 04/20/24 06:00 Normal Saline Flush 10 Ml Syr IV 04/20/24 23:59 PRN PRN Sodium Chloride 0 ml 04/20/24 06:00 Normal Saline 10 Ml Vial IJ 04/20/24 23:59 DIRECTED PRN Sterile Water 0 ml 04/20/24 06:00 Water,Injection,Sterile 10 Ml Vial IJ 04/20/24 23:59 DIRECTED PRN PFSH Active Problems Active Problems: Problem Status Onset Code Rupture of right proximal biceps tendon Acute ~04/12/24 S46.211A Chondromalacia, right shoulder Acute M94.211 Superior labrum hbncicll-wa-ysmwakvei (SLAP) tear of right shoulder Acute S43.431A Rotator cuff tear, right Acute M75.101 Family history of GI malignancy Acute Z80.0 Steatohepatitis, non-alcoholic Acute K75.81 Spinal stenosis of thoracic region Acute M48.04 Spondylosis Acute M47.9 Cervical disc disorder with radiculopathy Acute M50.10 Cirrhosis Acute K74.60 Medical History Medical History Tubular adenoma of colon (~12/2023) Encounter for screening colonoscopy Tinnitus Hearing loss Tobacco use disorder [place] (obstructive sleep apnea) Panic disorder without agoraphobia Per states, MRI machines are triggers, he's okay with small rooms. Rotator cuff rupture Hypertension Lateral epicondylitis Lumbar radiculopathy Obesity Pain in right arm Kidney stones Psoriasis Diabetes mellitus Surgical History Surgical History Hx of shoulder surgery History of elbow surgery History of esophagogastroduodenoscopy H/O arthroscopic knee surgery Right H/O arthroscopy of shoulder Bilateral H/O colonoscopy (~12/2023) Hx of fasciotomy right arm Tobacco Smoking/Tobacco Use Status: Former Tobacco Use Alcohol Alcohol Intake: current Alcohol intake frequency: holidays/special occasions only Alcohol type: beer Substance Use Substance use: Never Substance use type: does not use Vital Signs and Lab Results Vital Signs Most Recent Vital Signs in EMR: Most Recent Vital Signs Temp Pulse Resp BP Pulse Ox 36.2 C L 80 16 126/87 97 04/20/24 12:00 04/20/24 12:00 04/20/24 12:00 04/20/24 12:00 04/20/24 12:00 Lab Results Blood Type / Crossmatch: 2 No Data to Display Complete Blood Count: 2 No Data to Display Complete Metabolic Panel: 2 No Data to Display Liver Function Panel: 2 No Data to Display Coagulation Panel: 2 No Data to Display Cardiac Panel: 2 No Data to Display Arterial Blood Gas: 2 No Data to Display Venous Blood Gas: 2 No Data to Display Pancreas Panel: 2 No Data to Display Thyroid Panel: 2 No Data to Display Infectious Disease: 2 No Data to Display Blood Cultures: 2 No Data to Display Toxicology Panel: 2 No Data to Display Anesthesia Assessment and Plan Anesthesia History Personal History: Delayed Emergence Family History: No Family History of Anesthesia Complications Exercise Tolerance Exercise Tolerance: Metabolic Equivalents>4 Pertinent Negatives Pertinent Negatives: No Major Pulmonary Symptoms or Complaints and No History of CVA/TIA Cardiac & Pulmonary Exam Cardiac Exam: Normal S1/S2 Heart Sounds Pulmonary Exam: Clear Bilateral Breath Sounds Implantable Cardiac Device Does patient have a Pacemaker or an ICD?: No Airway Exam Known Difficult Airway: No Mallampati Class: 2 Mouth Opening: Normal (> 3cm) Thyromental Distance: Greater than 3 cm Neck Range of Motion: Full ROM Neck Circumference: Normal Teeth Condition: Normal Dentition Tooth Numberin 1. Missing 2. Missing 3. Missing ASA Classification ASA Score: ASA 2 Emergency Case?: No NPO Status NPO Status: NPO Clears >2 hours, Solids >8 hours Anesthesia Plan Resuscitation Status: Full Code Anesthesia Technique: General Anesthesia Airway Planned: Endotracheal Tube Pain Management: Surgeon and patient request nerve block Monitors Used: Standard Monitors Preoperative Comments:: As per last anesthetic: Pt had a crush injury of right arm in 2004. Pt does have slight sensory deficits of right thumb, pointer and middle finger. Pt describes possible slight motor deficit of right hand but not appreciated during exam. Pt given risk/benefits of nerve block give prior injury and he would like to proceed with Interscalene Plexus Block. Amanda Snell, SIGN MANUFACTURER
[2024-04-20] MEDS: Lactated Ringers 1,000 ML 30 ML IV (13:50)
--- NOTE | 2024-04-20 14:25 | W.ANESNERVE ---
Nerve Block Single Injection Procedure Date and Time Date Performed: 04/20/24 Procedure Start: 14:28 Location Where Procedure Performed Procedure Location: Day Surgery Unit Reason Performed: Postoperative Analgesia Requesting Provider: Don Cole Timeout Performed Timeout Performed: Yes Monitoring Used ECG, Blood Pressure and SpO2 Sterility Sterility: Hand Hygiene, Surgical Cap, Surgical Mask, Sterile Gloves and Chlorhexidine Sedation Given During Procedure Sedation Given (Indicate Dose Given): Versed IV Dose:: 2 mg Patient Mental Status Patient Mental Status: Sedate with meaningful communication Nerve Block 1st Nerve Block: Laterality: Right Block Type: Interscalene Ultrasound Image Saved?: Yes Needle / Catheter Used: 100mm SonoPlex II Local Anesthetic Bolus (Indicate Dose Given): Lidocaine used for local infiltration of skin, Injected in 3-5ml increments after negative blood aspiration, Bupivacaine 0.5% Dose:: 10 ml and Exparel Dose:: 10 ml Additives (Indicate Dose Given): Normal Saline Ultrasound: Sterile probe cover and gel used Nerve Stimulator: Supplement to Ultrasound use and No twitch or parasthesia noted < 0.5 mA Paresthesia: None Procedure Tolerated: No Complications and Patient tolerated well Procedure Outcome: Successful Performed By: Marty Snell
[2024-04-20] MEDS: ceFAZolin 3,000 MG in Normal Saline 100 ML 200 MG IV (14:50)
[2024-04-20] MEDS: TRANEXAMIC ACID/SOD. CHL. 1,000 MG/100 ML BAG 600 MG IVPB (15:00)
[2024-04-20] MEDS: Bupivacaine 0.25% Pres-Free W/EPI 30 ML VIAL (15:12)
[2024-04-20] MEDS: fentaNYL 100 MCG/2 ML VIAL IVP ×3 (16:33→16:48)
--- NOTE | 2024-04-20 16:42 | W.ANESPOSTOP ---
Postoperative Evaluation Date, Time and Location Date Performed: 04/20/24 Time Performed: 16:42 Patient Location: PACU Vital Signs Most Recent Imported Vital Signs: Most Recent Vital Signs Temp Pulse Resp BP Pulse Ox 36.4 C L 86 18 132/76 94 04/20/24 16:31 04/20/24 16:35 04/20/24 16:35 04/20/24 16:31 04/20/24 16:35 Pain Score Most Recent Pain Score: Most Recent Pain Score Pain Level 4 04/20/24 1642 Assessment Mental Status: Awake (Alert & Oriented to Patient Baseline) Airway and Respiratory Function: Patent airway with normal (patient baseline) respiratory exam Cardiovascular Function: Hemodynamically Stable Hydration Status: Adequately Hydrated Nausea & Vomiting: No Nausea or Vomiting Pain: Pain is tolerable per patient Peripheral Nerve Block: Regional nerve block not resolved at time of post operative discharge
[2024-04-20] MEDS: HYDROmorphone 2 MG/ML SYR IVP ×2 (17:02→17:13)
== END 2024-04-20 18:15 | disposition home or self-care (01) ==
PROVIDERS: PCP Nurse Practitioner Adult Health; Visit Provider Student in an Organized Health Care Education/Training Program
PROC: (CPT 29805; principal; 2024-04-20 14:30)
PROC: (CPT 23430; 2024-04-20 14:30)
DX: S46.211A Strain of muscle, fascia and tendon of other parts of biceps, right arm, initial encounter (principal); S43.431A Superior glenoid labrum lesion of right shoulder, initial encounter; X58.XXXA Exposure to other specified factors, initial encounter
CPT/HCPCS: 23430; 29822; 64415; J0665; J0666; J0690; J1100; J1171; J2250; J2405; J2704; J3010

== ENCOUNTER 2024-05-02 15:56 | Outpatient (CLI) | payer OTHER, SELFPAY ==
--- NOTE | 2024-05-02 15:30 | DI.RAD_ITS ---
Exam(s) XR SHOULDER RT 1V EXAM: XR SHOULDER RT 1V CLINICAL HISTORY: biceps asymmetry. TECHNIQUE: 2D digital imaging was performed. Five views. COMPARISON: CR SHOULDER (ORTHO) 4 VIEWS from 10/11/2023 MR MR UPPER JOINT RT WO from 04/18/2024 FINDINGS: BONES: No acute fracture is present. No bony destructive lesion is seen. Metallic anchor noted in pr oximal humeral shaft related to biceps tendon repair. JOINTS: No dislocation present. Glenohumeral joint space is maintained. Mild spurring at the AC anusha nt. SOFT TISSUE: Normal. IMPRESSION: Status post biceps tendon repair. DATA REPOSITORY: RADIATION DOSE DELIVERED:
== END 2024-05-02 15:57 | disposition home or self-care (01) ==
LOC: DIORS 15:57
PROVIDERS: PCP Nurse Practitioner Adult Health; Visit Provider Physician Assistant
DX: S46.211D Strain of muscle, fascia and tendon of other parts of biceps, right arm, subsequent encounter (principal); X58.XXXD Exposure to other specified factors, subsequent encounter
CPT/HCPCS: 73020

== ENCOUNTER 2024-05-29 02:21 | Outpatient (RCR) | payer OTHER, SELFPAY ==
[2024-05-29 07:34] VITALS: BP 145/83; PULSE 86; RESP 19; TEMP 37.1; O2SAT 97
[2024-05-29] MEDS: inFLIXimab 600 MG in Normal Saline 250 ML 125 MG IVPB (08:10)
[2024-05-29] MEDS: Normal Saline Flush 5 ML SYR IVP (08:10)
[2024-05-29 08:49] VITALS: BP 150/85; PULSE 82; RESP 19; TEMP 36.2; O2SAT 93
[2024-05-29 09:20] VITALS: BP 127/78; PULSE 76; RESP 17; TEMP 36.1; O2SAT 95
[2024-05-29 09:49] VITALS: BP 130/78; PULSE 78; RESP 18; TEMP 36.9; O2SAT 97
[2024-05-29 10:20] VITALS: BP 128/68; PULSE 78; RESP 16; TEMP 36.5; O2SAT 97
== END 2024-06-05 23:59 | disposition home or self-care (01) ==
LOC: INF 02:21
PROVIDERS: PCP Nurse Practitioner Adult Health; Visit Provider Family Medicine
DX: L40.9 Psoriasis, unspecified (principal)
CPT/HCPCS: 96365; 96366; J1745

== ENCOUNTER 2024-06-07 14:55 | Outpatient (CLI) | payer OTHER, SELFPAY ==
--- NOTE | 2024-06-07 11:13 | DI.RAD_ITS ---
Exam(s) XR CERVICAL SP CHAO TRAUMA 2-3V EXAM: XR CERVICAL SP CHAO TRAUMA 2-3V CLINICAL HISTORY: pain. TECHNIQUE: 2D digital imaging was performed. Two images were obtained. AP and lateral images were obtained. COMPARISON: No exams were available for comparison FINDINGS: The odontoid is intact. The lateral masses are well aligned. There is normal alignment of the cervi yoseph spine. At C5-C6, there is disc space narrowing and endplate osteophytes. There are small endplat e osteophytes also seen at C3-4 and C4-C5. No acute fracture or subluxation is present. No significan t neural foraminal stenosis is present. The cervical thoracic junction is well maintained. The prev ertebral soft tissues are unremarkable. Lung apices are clear. IMPRESSION: 1. No acute fracture or subluxation. 2. Mild degenerative changes in the cervical spine. DATA REPOSITORY: RADIATION DOSE DELIVERED:
== END 2024-06-07 14:56 | disposition home or self-care (01) ==
LOC: DIORS 14:55
PROVIDERS: PCP Nurse Practitioner Adult Health; Visit Provider Physician Assistant
DX: M54.2 Cervicalgia (principal)
CPT/HCPCS: 72040

== ENCOUNTER 2024-06-30 00:22 | Outpatient (CLI) | payer OTHER, SELFPAY ==
--- NOTE | 2024-06-30 14:30 | DI.MRI_ITS ---
Exam(s) MR CERVICAL SPINE WO EXAM: MR CERVICAL SPINE WO CLINICAL HISTORY: PAIN,cervical disc disorder with radiculopathy,m50.10,[id number] TECHNIQUE: Multiplanar multisequence MRI of the cervical spine was performed without intravenous con trast. COMPARISON: CR XR CERVICAL SP CHAO TRAUMA 2-3V from 06/07/2024 FINDINGS: BONES: Vertebral body heights are maintained. At C5-C6, there are anterior osteophytes. There is als o prominence of the osteophyte disc complex. Alignment is normal. Bone marrow signal intensity is wi thin normal limits. CERVICAL CORD: Craniovertebral junction is unremarkable. The cervical cord is normal size and signal intensity. SOFT TISSUES: Unremarkable. C2-3: No disc herniation or bulge is identified. No significant central spinal canal or neural forami nal stenosis. C3-4: No disc herniation or bulge is identified. No significant central spinal canal or neural forami nal stenosis C4-5: No disc herniation or bulge is identified. No significant central spinal canal or neural forami nal stenosis C5-6: There is prominence of the osteophyte disc complex. There is some narrowing of the central spi nal canal with an AP diameter of 9 mm. There is normal signal in the spinal cord. There is prominen ce of the uncovertebral joints bilaterally. There is resultant moderate narrowing of the neural fora men bilaterally. C6-7: No disc herniation or bulge is identified. There is prominence of the right uncovertebral joint causing moderate right neural foraminal stenosis. No significant central spinal canal or neural for aminal stenosis is present. C7-T1: No disc herniation or bulge is identified. No significant central spinal canal or neural barry inal stenosis IMPRESSION: 1. There are degenerative changes seen at C5-C6 causing mild central spinal canal and moderate bilate ral neural foraminal stenosis. 2. Degenerative changes of the right uncovertebral joint at C6-C7 causing moderate right neural barry inal stenosis. DATA REPOSITORY:
== END 2024-06-30 00:42 ==
PROVIDERS: PCP Nurse Practitioner Adult Health; Visit Provider Student in an Organized Health Care Education/Training Program
DX: M50.122 Cervical disc disorder at C5-C6 level with radiculopathy (principal); M99.61 Osseous and subluxation stenosis of intervertebral foramina of cervical region
CPT/HCPCS: 72141

== ENCOUNTER 2024-08-02 01:04 | Outpatient (RCR) | payer OTHER, SELFPAY ==
[2024-08-02 07:19] VITALS: BP 141/88; PULSE 77; RESP 20; TEMP 36.3; O2SAT 95
[2024-08-02] MEDS: Normal Saline Flush 10 ML SYR IVP (08:00)
[2024-08-02] MEDS: inFLIXimab 600 MG in Normal Saline 250 ML 125 MG IVPB (08:00)
[2024-08-02 08:42] VITALS: BP 121/75; PULSE 69; RESP 20; TEMP 36.4; O2SAT 94
[2024-08-02 09:12] VITALS: BP 125/83; PULSE 68; RESP 20; TEMP 36.6; O2SAT 96
[2024-08-02 10:19] VITALS: BP 137/87; PULSE 68; RESP 20; TEMP 36.6; O2SAT 96
== END 2024-08-05 23:59 | disposition home or self-care (01) ==
LOC: INF 01:04
PROVIDERS: PCP Nurse Practitioner Adult Health; Visit Provider Family Medicine
DX: L40.9 Psoriasis, unspecified (principal)
CPT/HCPCS: 96365; 96366; J1745

== ENCOUNTER 2024-09-20 02:30 | Outpatient (RCR) | payer OTHER, SELFPAY ==
[2024-09-20 07:14] VITALS: BP 117/70; PULSE 75; RESP 20; TEMP 36.5; O2SAT 93
[2024-09-20] MEDS: inFLIXimab 600 MG in Normal Saline 250 ML 125 MG IVPB (08:13)
[2024-09-20] MEDS: Normal Saline Flush 10 ML SYR IVP (08:13)
[2024-09-20 08:44] VITALS: BP 116/75; PULSE 73; RESP 20; TEMP 36.3; O2SAT 95
[2024-09-20 09:15] VITALS: BP 117/76; PULSE 73; RESP 20; TEMP 36.5; O2SAT 97
[2024-09-20 09:46] VITALS: BP 127/78; PULSE 73; RESP 21; TEMP 36.5; O2SAT 100
[2024-09-20 10:15] VITALS: BP 118/77; PULSE 74; RESP 22; TEMP 36.5; O2SAT 100
== END 2024-10-05 23:59 | disposition home or self-care (01) ==
LOC: INF 02:30
PROVIDERS: PCP Nurse Practitioner Adult Health; Visit Provider Family Medicine
DX: L40.9 Psoriasis, unspecified (principal)
CPT/HCPCS: 96365; 96366; J1745

== ENCOUNTER 2024-11-10 14:50 | Emergency (ER) | payer OTHER, SELFPAY ==
[2024-11-10 14:53] VITALS: BP 157/92; PULSE 96; RESP 16; TEMP 36.6; O2SAT 95
--- NOTE | 2024-11-10 16:17 | W.ED.GENAD ---
Discharge Plan Discharge Details Chief Complaint: Nk/Back Pain Primary Care Provider: Lizbeth Li ED Provider: Bahman Guaman Home Meds and New Rx's Prescriptions: No Action sildenafil 100 mg tablet 100 mg PO DAILY PRN Rx Instructions: administer 30 minutes to 4 hours before activity sodium chloride 0.65 % aerosol,spray 2 spray intranasal QID PRN nortriptyline 50 mg capsule 150 mg PO QHS insulin glargine 100 unit/mL cartridge 40 unit SUBCUT HS Patient Comments: 30 units 04/19/24 amlodipine-benazepril 10-20 mg Capsule 1 cap PO DAILY loratadine [Allergy Relief (loratadine)] 10 mg tablet 10 mg PO HS PRN Ozempic 0.25 mg or 0.5 mg(2 mg/1.5 mL) pen injector 0.5 mg subcut QWEEK buspirone 5 mg tablet 15 mg PO BID metformin 1,000 mg tablet 1,000 mg PO BID metoprolol tartrate 25 mg tablet 50 mg PO BID trazodone 50 mg tablet 75 mg PO HS omeprazole 20 mg Capsule,Delayed Release(Dr/Ec) 20 mg PO DAILY bupropion HCl 300 mg tablet extended release 24 hr 300 mg PO DAILY Jardiance 25 mg tablet 25 mg PO DAILY HPI General Mode of arrival: ambulatory. Date/Time Provider Initiated Documentation: 11/10/24 14:54. Limitations to Documentation: no limitations. Information obtained by: patient. HPI Narrative: HISTORY OF PRESENT ILLNESS 59-year-old male with prior neck surgery presenting with back pain. Back pain worsened on 11/06/2024 after lifting a 35-pack of water. Pain intensified daily, disrupting sleep and causing discomfort during breathing. Pain located between spine and right shoulder blade, constant, worsens with breathing and [id number] pressure on ribs. No bowel/bladder dysfunction, incontinence, numbness, tingling, or recent weakness. Residual arm weakness post-surgery. Managing pain with Tylenol and naproxen. History of similar back pain episodes resolving spontaneously. Sought medical care due to increasing pain and difficulty sleeping. PAST SURGICAL HISTORY: Neck surgery (date unspecified) Related Data Home Medications ?Medication ?Instructions ?Recorded ?Confirmed buspirone 5 mg tablet 15 mg PO BID 09/26/21 11/10/24 metformin 1,000 mg tablet 1,000 mg PO BID 09/26/21 11/10/24 metoprolol tartrate 25 mg tablet 50 mg PO BID 09/26/21 11/10/24 omeprazole 20 mg capsule,delayed 20 mg PO DAILY 09/26/21 11/10/24 release trazodone 50 mg tablet 75 mg PO HS 09/26/21 11/10/24 amlodipine 10 mg-benazepril 20 mg 1 cap PO DAILY 06/12/22 11/10/24 capsule bupropion HCl 300 mg 24 hr tablet, 300 mg PO DAILY 10/23/22 11/10/24 extended release nortriptyline 50 mg capsule 150 mg PO QHS 11/11/22 11/10/24 sildenafil 100 mg tablet 100 mg PO DAILY PRN 11/11/22 11/10/24 sodium chloride 0.65 % nasal spray 2 spray intranasal QID PRN 11/11/22 11/10/24 aerosol insulin glargine 100 unit/mL 40 unit subcut HS 11/01/23 11/10/24 subcutaneous cartridge empagliflozin 25 mg tablet 25 mg PO DAILY 12/24/23 11/10/24 (Jardiance) loratadine 10 mg tablet (Allergy 10 mg PO HS PRN 04/20/24 11/10/24 Relief (loratadine)) semaglutide 0.25 mg or 0.5 mg (2 0.5 mg subcut QWEEK 11/10/24 11/10/24 mg/1.5 mL) subcutaneous pen injector (Ozempic) Allergies Allergy/AdvReac Type Severity Reaction Status Date / Time adalimumab (From Humira) Allergy Severe dyspnea Verified 11/10/24 14:55 diclofenac Allergy Severe Swelling/Ed Verified 11/10/24 14:55 rena gabapentin Allergy Severe Swelling/Ed Verified 11/10/24 14:55 rena General Stated Complaint: Nk/Back Pain MALIK: 4 Review of Systems Constitutional Constitutional: Denies fever(s) Musculoskeletal Musculoskeletal: Reports as per HPI Exam Const General: cooperative and no acute distress HENMT Mouth: moist mucous membranes Neck Neck: trachea midline Resp Auscultation: clear to auscultation bilaterally, no rales, no rhonchi and no wheezes Cardio Rate: regular rate and not tachycardic Rhythm: regular rhythm GI Palpation: soft, not firm, no guarding, no masses, not rigid and nontender Back/Spine/Pelvis Back: No erythema, No warmth, No ecchymosis and back tenderness (focal tenderness rt upper medial to scapula, reproduces pain) Cervical Spine: cervical ROM normal and No cervical spinal tenderness Thoracic/Lumbar Spine: paraspinal tenderness (rt thoracic), No thoracic spinal tenderness and No lumbar spinal tenderness Skin General skin exam: no rashes or lesions noted Neuro General: patient alert, patient awake and tone normal Course Vital Signs Vital signs: Vital Signs Temperature 36.6 C 11/10/24 14:53 Pulse 96 H 11/10/24 14:53 Respiratory Rate 16 11/10/24 14:53 Blood Pressure 157/92 H 11/10/24 14:53 Pulse Oximetry 95 11/10/24 14:53 Temperature 36.6 C 11/10/24 14:53 Temperature Source Oral 11/10/24 14:53 Pulse 96 H 11/10/24 14:53 Respiratory Rate 16 11/10/24 14:53 Blood Pressure 157/92 H 11/10/24 14:53 Blood Pressure Position Sitting 11/10/24 14:53 Pulse Oximetry 95 11/10/24 14:53 Oxygen Delivery Method Room Air 11/10/24 14:53 Oxygen Flow Rate 0 11/10/24 14:53 Pain Level 9 11/10/24 14:53 Medical Decision Making ASSESSMENT AND PLAN Initial Assessment: 59-year-old male with back pain, started after lifting heavy object on 11/06/2024. No recent trauma. Pain exacerbated by breathing, difficulty sleeping. Patient saturating well in no respiratory distress. He is hemodynamically stable. Patient has focal tenderness right thoracic paraspinal. No inflammatory changes overlying area. Differential Diagnosis: - Muscle sprain/strain: Likely due to lifting heavy object. Avoid activities that worsen pain. Anti-inflammatories, lidocaine patch, Valium for muscle relaxation. - Rib fracture: Possible due to pain with breathing. Chest x-ray to rule out fracture or lung collapse. - Consider thoracic spinal fracture or lesion ED Course: --Lidocaine patch placed -- cxr and thoracic spine xrays ordered. Clinical Impression: - Muscle sprain/strain Disposition: Pending imaging results. Patient Education: Avoid activities that worsen pain. Use anti-inflammatories around the clock. Apply lidocaine patch. Use Valium for muscle relaxation and sleep. This document was written with the assistance of ROSEANN Dawn. The patient consented to its use. PFSH All Active Problems Rupture of right proximal biceps tendon (Acute ~04/12/24) s/p Right shoulder arthroscopy with limited debridement (removal permanent suture material from failed arthroscopic biceps tenodesis) and open biceps tenodesis 04/20/24; Right shoulder arthroscopy with biceps tenodesis, extensive debridement, and subacromial decompression 03/16/24; Significant glenoid chondromalacia Chondromalacia, right shoulder (Acute) Superior labrum mesdainx-ht-prcboeofp (SLAP) tear of right shoulder (Acute) Rotator cuff tear, right (Acute) Family history of GI malignancy (Acute) Steatohepatitis, non-alcoholic (Acute) Spinal stenosis of thoracic region (Acute) Spondylosis (Acute) Cervical disc disorder with radiculopathy (Acute) Cirrhosis (Acute) Medical History Tubular adenoma of colon (~12/2023) Encounter for screening colonoscopy Tinnitus Hearing loss Tobacco use disorder [place] (obstructive sleep apnea) Panic disorder without agoraphobia Per states, MRI machines are triggers, he's okay with small rooms. Rotator cuff rupture Hypertension Lateral epicondylitis Lumbar radiculopathy Obesity Pain in right arm Kidney stones Psoriasis Diabetes mellitus Surgical History Hx of shoulder surgery History of elbow surgery History of esophagogastroduodenoscopy H/O arthroscopic knee surgery Right H/O arthroscopy of shoulder Bilateral H/O colonoscopy (~12/2023) Hx of fasciotomy right arm Social History Smoking/Tobacco Use Status: Former Tobacco Use Quit Date: 03/08/07 Tobacco: How many years used: 20 Smoking risk assessment performed?: Yes Alcohol Intake: current Alcohol Intake frequency: holidays/special occasions only Alcohol type: beer Drug use: Never Substance use type: does not use Housing: house Do you feel safe in your relationship?: Yes Additional [facility]: [facility]
--- NOTE | 2024-11-10 16:43 | DI.RAD_ITS ---
Exam(s) XR THORACIC SPINE COMPLETE XR CHEST 2V PA LATERAL EXAM: XR CHEST 2V PA LATERAL and XR thoracic spine CLINICAL HISTORY: right posterior upper back pain TECHNIQUE: 2D digital imaging was performed of the chest and thoracic spine. Images were obtained. PA, swimmer's and lateral views of the chest and thoracic spine were obtained. COMPARISON: CR XR PORTABLE CHEST AP from 09/26/2021 FINDINGS: MEDIASTINUM: Normal. HEART: Normal. PULMONARY VASCULATURE: Normal. LUNGS: Clear. PLEURAL SPACE: No pleural effusion or pneumothorax. BONE:Within normal limits for the patient's age. Age-appropriate degenerative changes are seen throughout the thoracic spine. There is no acute fracture or subluxation present in the thoracic spine. OTHER FINDINGS:Normal. IMPRESSION: 1. No acute pulmonary findings. 2. No acute fracture or subluxation is seen in the thoracic spine. DATA REPOSITORY: RADIATION DOSE DELIVERED:
[2024-11-10] MEDS: diazePAM 5 MG TAB PO (16:55)
[2024-11-10] MEDS: Lidocaine 5% Patch 1 PATCH TP (16:55)
== END 2024-11-10 17:25 | disposition home or self-care (01) ==
LOC: ER 17:15
PROVIDERS: Emergency Provider Physician Assistant
DX: M54.9 Dorsalgia, unspecified (principal); X50.0XXA Overexertion from strenuous movement or load, initial encounter
CPT/HCPCS: 99283; 99284; 71046; 72072

== ENCOUNTER 2024-11-15 04:04 | Outpatient (RCR) | payer OTHER, SELFPAY ==
[2024-11-15 08:15] VITALS: BP 134/87; PULSE 82; RESP 18; TEMP 36.4; O2SAT 96
[2024-11-15] MEDS: inFLIXimab 600 MG in Normal Saline 250 ML 125 MG IVPB (08:15)
[2024-11-15] MEDS: Normal Saline Flush 10 ML SYR IVP (08:16)
[2024-11-15 08:45] VITALS: BP 134/77; PULSE 90; RESP 18; TEMP 36.5; O2SAT 98
[2024-11-15 09:15] VITALS: BP 138/84; PULSE 86; RESP 17; TEMP 36.5; O2SAT 97
[2024-11-15 09:45] VITALS: BP 143/80; PULSE 88; RESP 17; TEMP 36.4; O2SAT 98
[2024-11-15 10:15] VITALS: BP 137/84; PULSE 84; RESP 17; TEMP 36.7; O2SAT 99
== END 2024-12-05 23:59 | disposition home or self-care (01) ==
LOC: INF 04:04
PROVIDERS: Visit Provider Family Medicine
DX: L40.9 Psoriasis, unspecified (principal)
CPT/HCPCS: 96365; 96366; J1745

== ENCOUNTER 2025-01-10 03:37 | Outpatient (RCR) | payer OTHER, SELFPAY ==
[2025-01-10 07:59] VITALS: BP 132/81; PULSE 87; RESP 18; TEMP 36.3; O2SAT 95
[2025-01-10] MEDS: Normal Saline Flush 10 ML SYR IVP (08:19)
[2025-01-10] MEDS: inFLIXimab 600 MG in Normal Saline 250 ML 125 MG IVPB (08:19)
[2025-01-10 08:30] VITALS: BP 117/75; PULSE 85; RESP 19; TEMP 36.4; O2SAT 93
[2025-01-10 09:30] VITALS: BP 127/77; PULSE 84; RESP 18; TEMP 36.3; O2SAT 97
== END 2025-02-04 23:59 | disposition home or self-care (01) ==
LOC: INF 03:37
PROVIDERS: Visit Provider Family Medicine
DX: L40.9 Psoriasis, unspecified (principal)
CPT/HCPCS: 96365; 96366; J1745

== ENCOUNTER 2025-01-25 12:09 | Emergency (ER) | payer OTHER, SELFPAY ==
[2025-01-25 12:15] VITALS: BP 149/87; PULSE 102; RESP 18; TEMP 36.9; O2SAT 100
--- NOTE | 2025-01-25 12:45 | DI.RAD_ITS ---
Exam(s) XR KNEE RT 3V AP,LAT,TRACE EXAM: XR KNEE RT 3V AP,LAT,TRACE CLINICAL HISTORY: knee pain medially twist. TECHNIQUE: 2D digital imaging was performed. Three views. COMPARISON: No exams were available for comparison FINDINGS: BONES: No acute fracture is present. No bony destructive lesion is seen. JOINTS: There is mild medial femoral tibial joint space narrowing and mild periarticular spurring. No joint effusion is seen. SOFT TISSUE: Normal. IMPRESSION: Mild degenerative changes. No acute abnormality. DATA REPOSITORY: RADIATION DOSE DELIVERED:
--- NOTE | 2025-01-25 15:46 | W.ED.GENAD ---
Discharge Plan Disposition Patient Disposition: Home Condition: Stable Discharge Details Clinical Impression: Internal derangement of knee Primary Care Provider: [facility] Provider: Sonia Huitron Home Meds and New Rx's Prescriptions: Continued sildenafil 100 mg tablet 100 mg PO DAILY PRN Rx Instructions: administer 30 minutes to 4 hours before activity sodium chloride 0.65 % aerosol,spray 2 spray intranasal QID PRN nortriptyline 50 mg capsule 150 mg PO QHS amlodipine-benazepril 10-20 mg Capsule 1 cap PO DAILY loratadine [Allergy Relief (loratadine)] 10 mg tablet 10 mg PO HS PRN Ozempic 0.25 mg or 0.5 mg(2 mg/1.5 mL) pen injector 0.5 mg subcut QWEEK buspirone 5 mg tablet 15 mg PO BID metformin 1,000 mg tablet 1,000 mg PO BID metoprolol tartrate 25 mg tablet 50 mg PO BID trazodone 50 mg tablet 75 mg PO HS omeprazole 20 mg Capsule,Delayed Release(Dr/Ec) 20 mg PO DAILY bupropion HCl 300 mg tablet extended release 24 hr 300 mg PO DAILY Jardiance 25 mg tablet 25 mg PO DAILY Discharge Instructions Instructions: Internal Derangement of the Knee (DC) Additional Instructions: May take a nonsteroidal as needed for discomfort Voltaren gel Follow-up with your PCP for recheck in 1 week, if you have persistent pain you would likely benefit from seeing orthopedics, I will place a referral Please return earlier today worsening pain or should any new concerns arise Stand Alone Forms: Portal Information Referrals: Don Cole MD [ [facility] STAFF PHYSICIAN, Orthopaedic Surgical] Discharge Data Discharge Date/Time-TO BE ENTERED AT DEPARTURE: 01/25/25 14:46 HPI General Date/Time Provider Initiated Documentation: 01/25/25 12:33. HPI Narrative: This 59-year-old male presents with report of fall yesterday while hunting. He slipped on ice and landed with his knee abducted laterally landing directly on his knee. He has had pain to the inner knee since that time. He is having difficulty ambulating secondary to pain. Denies any additional injuries or history of coagulopathy. Related Data Home Medications Medication Instructions Recorded Confirmed buspirone 5 mg tablet 15 mg PO BID 09/26/21 01/25/25 metformin 1,000 mg tablet 1,000 mg PO BID 09/26/21 01/25/25 metoprolol tartrate 25 mg tablet 50 mg PO BID 09/26/21 01/25/25 omeprazole 20 mg capsule,delayed 20 mg PO DAILY 09/26/21 01/25/25 release trazodone 50 mg tablet 75 mg PO HS 09/26/21 01/25/25 amlodipine 10 mg-benazepril 20 mg 1 cap PO DAILY 06/12/22 01/25/25 capsule bupropion HCl 300 mg 24 hr tablet, 300 mg PO DAILY 10/23/22 01/25/25 extended release nortriptyline 50 mg capsule 150 mg PO QHS 11/11/22 01/25/25 sildenafil 100 mg tablet 100 mg PO DAILY PRN 11/11/22 01/25/25 sodium chloride 0.65 % nasal spray 2 spray intranasal QID PRN 11/11/22 01/25/25 aerosol empagliflozin 25 mg tablet 25 mg PO DAILY 12/24/23 01/25/25 (Jardiance) loratadine 10 mg tablet (Allergy 10 mg PO HS PRN 04/20/24 01/25/25 Relief (loratadine)) semaglutide 0.25 mg or 0.5 mg (2 0.5 mg subcut QWEEK 11/10/24 01/25/25 mg/1.5 mL) subcutaneous pen injector ([employer]) Allergies Allergy/AdvReac Type Severity Reaction Status Date / Time adalimumab (From [employer]) Allergy Severe dyspnea Verified 01/25/25 12:17 diclofenac Allergy Severe Swelling/Ed Verified 01/25/25 12:17 rena gabapentin Allergy Severe Swelling/Ed Verified 01/25/25 12:17 rena General Stated Complaint: Orthopedic MALIK: 4 Exam Narrative Exam Narrative: Alert and oriented 59-year-old male in no acute distress right knee with tenderness medially, no palpable joint effusion, mild tenderness to right hip no tenderness to right ankle neurovascularly intact Course Vital Signs Vital signs: Vital Signs Temperature 36.9 C 01/25/25 12:15 Pulse 102 H 01/25/25 12:15 Respiratory Rate 18 01/25/25 12:15 Blood Pressure 149/87 H 01/25/25 12:15 Pulse Oximetry 100 01/25/25 12:15 Temperature 36.9 C 01/25/25 12:15 Pulse 102 H 01/25/25 12:15 Respiratory Rate 18 01/25/25 12:15 Blood Pressure 149/87 H 01/25/25 12:15 Pulse Oximetry 100 01/25/25 12:15 Pain Level 9 01/25/25 12:15 Medical Decision Making Results:: Knee x-ray per radiology interpretation my review does not show acute evidence of acute pathology Patient was placed in a hinged knee brace secondary to medial knee pain the differentials include MCL strain versus meniscal tear. He is encouraged to follow-up with PCP in 1 week, if he has persistent pain he may require orthopedic referral and/or additional imaging at the discretion of his providers. He is encouraged to apply Voltaren gel and Motrin and Tylenol as needed for pain. Return precautions reviewed and patient expressed understanding PFSH All Active Problems (Updated 01/25/25 @ 14:02 by WANG Moseley) Internal derangement of knee (Acute) Rupture of right proximal biceps tendon (Acute ~04/12/24) s/p Right shoulder arthroscopy with limited debridement (removal permanent suture material from failed arthroscopic biceps tenodesis) and open biceps tenodesis 04/20/24; Right shoulder arthroscopy with biceps tenodesis, extensive debridement, and subacromial decompression 03/16/24; Significant glenoid chondromalacia Chondromalacia, right shoulder (Acute) Superior labrum ctzunydr-ka-joizqiafm (SLAP) tear of right shoulder (Acute) Rotator cuff tear, right (Acute) Family history of GI malignancy (Acute) Steatohepatitis, non-alcoholic (Acute) Spinal stenosis of thoracic region (Acute) Spondylosis (Acute) Cervical disc disorder with radiculopathy (Acute) Cirrhosis (Acute) Medical History Tubular adenoma of colon (~12/2023) Encounter for screening colonoscopy Tinnitus Hearing loss Tobacco use disorder [place] (obstructive sleep apnea) Panic disorder without agoraphobia Per states, MRI machines are triggers, he's okay with small rooms. Rotator cuff rupture Hypertension Lateral epicondylitis Lumbar radiculopathy Obesity Pain in right arm Kidney stones Psoriasis Diabetes mellitus Surgical History Hx of shoulder surgery History of elbow surgery History of esophagogastroduodenoscopy H/O arthroscopic knee surgery Right H/O arthroscopy of shoulder Bilateral H/O colonoscopy (~12/2023) Hx of fasciotomy right arm Social History Smoking/Tobacco Use Status: Former Tobacco Use Quit Date: 03/08/07 Tobacco: How many years used: 20 Smoking risk assessment performed?: Yes Alcohol Intake: current Alcohol Intake frequency: holidays/special occasions only Alcohol type: beer Drug use: Never Substance use type: does not use Housing: house Do you feel safe in your relationship?: Yes Additional Social history: [employer]
== END 2025-01-25 14:46 | disposition home or self-care (01) ==
PROVIDERS: Emergency Provider Physician Assistant
DX: M23.8X1 Other internal derangements of right knee (principal); S89.81XA Other specified injuries of right lower leg, initial encounter; I10 Essential (primary) hypertension; E11.9 Type 2 diabetes mellitus without complications; Z79.84 Long term (current) use of oral hypoglycemic drugs; W00.0XXA Fall on same level due to ice and snow, initial encounter; Y92.838 Other recreation area as the place of occurrence of the external cause; Y93.L9 Activity, other outdoor activity
CPT/HCPCS: 73562; 99283